=== PATIENT | male | born 1975 | race Caucasian/White ===

== ENCOUNTER 2017-03-22 09:03 | Observation (INO) | payer OTHER ==
[~2017-03-22] VITALS: Ht 172.7 cm; Wt 142.2 kg
[2017-03-22] VITALS (12 sets, daily range): BP systolic 95–163; BP diastolic 61–120; PULSE 62–69; RESP 16–20; O2SAT 93–98
[~2017-03-22 09:03] MED LIST: ALBU8.5H2 IH; AZU500 PO; BUPR200T2 PO; CELE200C PO; DICL100G8 TP; DICY10CA56 PO; EPIN0.3P2 IJ; ERGO500029 PO; HYDR-3740 PO; LIDOCAINE 2% TOP; LOPE2TAB32 PO; MAGN250T37 PO; MECL-125 PO; OMEP40CA3 PO; ONDA-53 PO; PREG225C PO; PROC5TAB50 PO; PROP40TA5 PO; QUET200T58 PO; RIZA10TA28 PO; TIZA4TAB PO; TRAZ-118 PO; VENL150C PO
--- NOTE | 2017-03-22 09:24 | ED.REPORT ---
HPI-General Illness Date of Service Mar 22, 2017 ED Provider: Nick Esteban MD A 41 year old male with a history of smoking, fibromyalgia, pulmonary artery disease, anxiety, CHF, hypertension, high cholesterol, OK 1.5 years ago and a family history of early onset cardiac disease is brought to the ED via EMS due to chest pain onset approximately 07:45. The pt began experiencing palpitations , which were soon followed by midsternal chest pain that the pt describes as "heavy tightness." The pain radiates to his jaw and left shoulder, though he denies radiation of pain to his back. He also admits to nausea, headache and general weakness, but denies numbness, tingling or focal weakness. The pt received nitro en route, which brought his pain down to a 6.5/10. The pt states that his current symptoms are similar to those that he experienced during his last OK. He was not stented at that time. Denies any other pertinent complaints at this time. Nursing Notes Stated Complaint: CHEST PAIN Chief Complaint: Chest Pain Nursing Notes Reviewed: Yes Allergies: Coded Allergies: amitriptyline (Verified Allergy, Unknown, 12/21/14) codeine (Verified Allergy, Unknown, 12/21/14) cyclobenzaprine HCl (Verified Allergy, Unknown, 12/21/14) telmisartan (Verified Allergy, Unknown, 12/21/14) NSAIDS (Non-Steroidal Anti-Inflamma (Verified Adverse Reaction, Intermediate, GERD, 03/22/17) Scheduled Bupropion ER (Wellbutrin SR) 200 Mg Tablet.er 200 MG PO BID Celecoxib (Celebrex) 200 Mg Capsule 200 MG PO BID Ergocalciferol (Vitamin D2) (Vitamin D2) 50,000 Unit Capsule 50,000 UNIT PO every sunday Magnesium Oxide (Magnesium Oxide) 250 Mg Tablet 250 MG PO BID Omeprazole (Prilosec) 40 Mg Capsule.dr 40 MG PO DAILY Pregabalin (Lyrica) 225 Mg Capsule 225 MG PO BID Propranolol HCl (Propranolol HCl) 40 Mg Tablet 40 MG PO BID Quetiapine Fumarate (Quetiapine Fumarate) 200 Mg Tablet 400 MG PO HS Sulfasalazine (Sulfasalazine) 500 Mg Tablet 1,000 MG PO TIDPC Trazodone (Trazodone) 100 Mg Tablet 400 MG PO HS MAY REPEAT IN 24 HOURS Trazodone (Trazodone) 100 Mg Tablet 400 MG PO HS Venlafaxine ER (Effexor XR) 150 Mg Cap.er.24h 150 MG PO DAILY Scheduled PRN ([lidocaine 2% jelly]) 1 APPLIC TOP QID PRN PRN For Pain Albuterol HFA (Proair HFA) 8.5 Gm Hfa.aer.ad 2 PUFFS IH Q4-6H PRN PRN For Shortness of Breath Diclofenac Gel (Voltaren Gel) 100 Gm Gel..gram. 100 GM TP QID PRN PRN SKIN Dicyclomine (Bentyl) 10 Mg Capsule 10 MG PO TID PRN PRN For Pain Epinephrine (Epipen 2-Jonah) 0.3 Mg/0.3 Ml Auto.injct 0.3 MG IJ PRN PRN PRN For Anaphyllaxis Hydrocodone-Acetaminophen 10-325 mg (Hydrocodone-Acetaminophen 10-325 mg) 1 Tab Tablet 1 TAB PO Q4-6H PRN PRN For Pain Loperamide (Loperamide) 2 Mg Tablet 2 MG PO DAILY PRN PRN For Diarrhea or Loose Stool Meclizine HCl (Meclizine HCl) 25 Mg Tab.chew 25-50 MG PO BID PRN PRN DIZZINESS Ondansetron (Ondansetron) 4 Mg Tablet 4-8 MG PO Q8 PRN PRN For Nausea Prochlorperazine Maleate (Compazine) 5 Mg Tablet 5 MG PO Q6 PRN PRN For Nausea Rizatriptan ODT (Rizatriptan) 10 Mg Tab.rapdis 10 MG PO DAILY PRN PRN For Headache Tizanidine (Zanaflex) 4 Mg Tablet 4-16 MG PO HS PRN PRN For Sleep General Time Seen by MD: 10:08 Chief Complaint Chest pain Hx Obtained From: Patient, EMS Arrived By: Ambulance Sudden in Onset?: Yes Onset Occurred: 1 - 4 hours ago Location: : Chest Quality: Heaviness Severity: Current: Pain level 6 out of 10 Recent Healthcare: No recent doctor visit, No recent hospitalization Similar Sx Previous: Yes Past Medical History Past Medical History Depression/Anxiety. PTSD. [place] Pulmonary artery disease Hypertension High cholesterol Possible dissociative disorder. Suspected bipolar disorder. Malignant and borderline personality disorder. Suspected possible Crohn's disease. Migraine headaches. Self-reported history of fibromyalgia Chronic pain, and on pain plan with PCP Dr. Armstrong, takes Vicodin ES Reports: Asthma, Congestive heart failure, Mental illness Past Surgical History exploratory surgery s/p pancreatitis Status post steroid injection for back pain Status post negative cardiac catheterization December 11, 2013. Reports: Appendectomy Family History OK (father and aunt) before 50 Reports: Diabetes mellitus Smoking History Current Every Day Smoker Social History Alcohol Use: "Social" Other Social History: Local resident Ambulatory Status Independent Review of Systems jaw pain, radiating from chest denies numbness denies paresthesia denies focal weakness Full Review of Systems Constitutional: Reports: Weakness - generalized, Denies: Chills, Fever Eyes: Denies: Diplopia, Photophobia Ears / Nose / Throat: Denies: Mouth pain, Nasal congestion Respiratory: Denies: Non-productive cough Cardiovascular: Reports: Chest pain, Palpitations GI: Reports: Nausea, Denies: Abdominal pain Male: Denies Dysuria Musculoskeletal: Reports: Joint pain (left shoulder, radiating from chest), Denies: Back pain Hematologic: Denies Bruising Skin: Denies Rash Neurologic: Reports: Headache Psychiatric: Denies: Change mental status Complete sys rev & neg: except as marked. Physical Exam Constitutional: Well-developed, well-nourished. Not diaphoretic, though appears uncomfortable. Head: Normocephalic and atraumatic. Mouth/Throat: Oropharynx is clear and moist. No oropharyngeal exudate. Eyes: EOM are normal. Pupils are equal, round, and reactive to light. Neck: Supple, no tracheal deviation. Cardiovascular: Normal rate, regular rhythm. Equal and intact distal pulses throughout. No peripheral edema noted. Pulmonary/Chest: Effort normal and breath sounds normal. No respiratory distress. Chest wall nontender. Abdominal: Soft. No distension. There is no tenderness, rebound, or guarding. Bowel sounds present. Musculoskeletal: Range of motion grossly intact, moving all extremities. No edema or tenderness appreciated. Neurological: AOx3. Grossly nonfocal exam. Strength and sensation intact and equal to bilateral upper and lower extremities. Skin: Warm and dry, no rashes or pallor appreciated. Not diaphoretic. Psychiatric: Appropriate mood and affect. Behavior appears normal. Vital Signs Vital Signs Date Time Temp Pulse Resp B/P Pulse Ox O2 Delivery O2 Flow Rate FiO2 03/22/17 13:26 63 20 120/83 94 Room Air 03/22/17 12:14 62 20 117/68 94 Room Air 03/22/17 11:16 68 20 96/62 93 03/22/17 11:11 64 20 95/61 93 Room Air 03/22/17 10:36 62 20 119/69 94 Room Air 03/22/17 10:14 63 20 116/63 96 Room Air 03/22/17 09:59 36.4 64 20 144/120 97 Room Air Initial VS: Reviewed Interpretation & Diagnostics Interpretation & Diagnostics: Chest/Abdomen CT: IMPRESSION: 1. No evidence of aortic dissection. 2. No central pulmonary embolism. Dictated by: Jose Ambriz M.D. on 03/22/2017 at 13:00 Approved by: Jose Ambriz M.D. on 03/22/2017 at 13:06 Lab Results Interpretation Result Diagram: 03/22/17 1000 03/22/17 1000 Test 03/22/17 10:00 03/22/17 13:02 White Blood Count 5.9th/mm3 (3.8-10.1) Red Blood Count 3.82mil/mm3 (4.40-5.80) Hemoglobin 12.3g/dL (13.8-17.2) Hematocrit 36.9% (41.0-50.0) Mean Corpuscular Volume 96.6fL (81-100) Mean Corpuscular Hemoglobin 32.2pg (27.0-35.0) Mean Corpuscular Hemoglobin Concent 33.3% (32.0-37.0) Red Cell Distribution Width 13.6% (12.3-15.4) Platelet Count 177bil/L (150-400) Neutrophils (%) (Auto) 64.1% (40-74) Lymphocytes (%) (Auto) 28.6% (14-46) Monocytes (%) (Auto) 6.6% (4-12) Eosinophils (%) (Auto) 0% (0-5) Basophils (%) (Auto) 0.5% (0-3) Prothrombin Time 10.2sec (8.1-12.5) Prothromb Time International Ratio 0.95ratio Activated Partial Thromboplast Time 30.3sec (22.8-33.0) Sodium Level 141mEq/L (134-144) Potassium Level 4.0mEq/L (3.5-5.2) Chloride Level 105mEq/L (97-108) Carbon Dioxide Level 24mmol/L (18-29) Blood Urea Nitrogen 9mg/dL (6-24) Creatinine 0.86mg/dL (0.76-1.27) Estimat Glomerular Filtration Rate 103mL/min (>59) Glucose Level 117mg/dL (60-99) Calcium Level 9.2mg/dL (8.5-10.1) Magnesium Level 1.9mg/dL (1.6-2.6) Total Bilirubin 0.3mg/dL (0.0-1.2) Aspartate Amino Transf (AST/SGOT) 8U/L (0-50) Alanine Aminotransferase (ALT/SGPT) 6U/L (0-44) Alkaline Phosphatase 63U/L (25-150) Total Protein 6.2g/dL (6.4-8.4) Albumin 3.8g/dL (3.4-5.0) ECG Interpretation ECG Interpretation: normal sinus rhythm with a rate of 66 deep T wave inversion in anterolateral leads vs. LVH Time: 10:02 Interpreted by: ED physician X-Ray Chest Interpretation Chest Xray Interpretation: IMPRESSION: Negative chest. No acute cardiopulmonary process is evident. Dictated by: Chris Boland M.D. on 03/22/2017 at 9:58 Approved by: Chris Boland M.D. on 03/22/2017 at 9:59 Interpretation / Wet Read by: Interpret - Radiologist Re-Eval/Medical Decision Med Decision/Clinical Course In summary, 41 yo M w/ complex PMHx including reported CAD and CHF, previous NSTEMI p/w midsternal chest pain radiating to his L shoulder and jaw in the setting of new EKG changes. DDx broad, includes ACS, PE, dissection, tamponade, PTX. BS present bilaterally, HDS. Sats wnl. Not dyspneic, low risk by [place] for PE. Dissection seems unlikely, though with patient's history and onset, decision made to obtain CT before initiating heparin. Patient given ASA upon arrival, IVF (lungs clear, not fluid overloaded), and started on NTG gtt w/ improvement in pain to a 2 to 3. EKG demonstrates NSR w/ rate of 66, deep TWI in anterolateral leads vs LVH; this is significantly changed from his previous. Initial labs notable for negative trop, coags wnl, CMP wnl, Hgb 12.3 (stable from previous) otherwise unremarkable CBC. CXR negative w/ no signs of fluid overload, PTX. Recieved OSH records. Here is transcribed report from cath in 09/2015: 10/25/2015 CONCLUSION: 1. Angiographically trivial preclinical coronary artery disease (deserving primary prevention). 2. Hyperdynamic left ventricular systolic function with no regional wall motion abnormalities identified. 3. [id number] left ventricular outflow tract obstruction by hemodynamics. 4. No evidence of mitral regurgitation on ventriculography. 5. Profoundly elevated left ventricular diastolic filling pressure. Echo at that time demonstrated hyperdynamic left ventricle with EF of 70%, no wall motion abnormalities. CTA here demonstrates no evidence of dissection. Discussed with patient and plans to start on heparin gtt. Consulted with cardiology prior to patient's arrival in the ED as per below. Obvious concern for ACS given patient's history and clinical presentation, including new EKG changes. Plan for admission for further management and evaluation, possible cardiac cath. This was discussed at length with the patient, who was agreeable and had no further questions. Source of Hx: Old records Time of Eval: 13:25 Patient Status: Condition improved Re-Evaluation/Progress Note: Pt rechecked, who is stable and resting comfortably. The diagnosis and plan for admission are discussed. The pt understands and agrees with the plan. All questions are addressed at this time. Consultation #1: Referral / Consult Name: Jimenez Eisenberg MD Consulted With: Cardiology Call Returned at: 09:20 Information Broker: Will see patient, Agrees with plan Note: Spoke with Dr. Eisenberg, cardiology, regarding pt's case. Dr. Eisenberg does not believe that the pt represents a clear STEMI at this time. He will see the pt when he arrives in the ED. Consultation #2: Referral / Consult Name: Jimenez Eisenberg MD Consulted With: Cardiology Call Returned at: 10:04 Information Broker: Agrees with eval, Agrees with plan Note: Spoke with Dr. Eisenberg in the ED regarding plan for the pt. Counseled Regarding: Diagnosis, Lab results, Need for admission Discharge & Departure Primary Impression: Unstable angina Disposition: ADMITTED TO HOSPITAL Discharge Condition All VS Reviewed: Yes Condition: Stable Referrals: JAQUELINE HUBER PA-C (PCP) Crit Care Except Billable Proc Time Spent: 75-104 minutes Critical Care Notes: Please see MDM. Scribe Attestation Portions of this note were transcribed by Noni Balderas. I, Dr. Esteban personally performed the history, physical exam and medical decision-making; I reviewed and confirmed the accuracy of the information in the transcribed note. copies to: JAQUELINE HUBER PA-C, William B MD Mar 22, 2017 09:24 NONI BALDERAS Mar 22, 2017 09:51
[2017-03-22] MEDS ORDERED: 0.9% Sodium Chloride 1,000 ML IV ONE (10:08)
[2017-03-22] MEDS ORDERED: Nitroglycerin 50 mg/250 mL D5W 50,000 MCG in IV Premix 1 EACH IV ONE (10:08)
[2017-03-22 10:16] LABS: BASOPHILS % (AUTO) 0.5 % (0-3); EOSINOPHILS % (AUTO) 0 % (0-5); MONOCYTES % (AUTO) 6.6 % (4-12); Mean Corpuscular Hemoglobin 32.2 pg (27.0-35.0); Mean Corpuscular Volume 96.6 fL (81-100); NEUTROPHILS % (AUTO) 64.1 % (40-74); Platelet Count 177 bil/L (150-400)
[2017-03-22 10:30] LABS: INR 0.95 ratio
[2017-03-22 10:49] LABS: Magnesium 1.9 mg/dL (1.6-2.6)
[2017-03-22 11:00] LABS: TROPONIN T < 0.010 ug/L (0.0-0.011)
--- NOTE | 2017-03-22 11:00 | DRSVH ---
PROCEDURE: X-RAY CHEST ONE VIEW, PORTABLE ([id number]) INDICATIONS: chest pain TECHNIQUE: One view of the chest was acquired. COMPARISON: [facility], , CHEST 1VW (PORTABLE), 12/21/2014, 16:10. FINDINGS: Surgical changes and devices: None. Lungs and pleura: No pleural effusions or pneumothorax. Lungs are clear. Mediastinum: Mediastinal contours appear normal. Heart size is normal. Bones and chest wall: No suspicious bony lesions. Overlying soft tissues appear unremarkable. IMPRESSION: Negative chest. No acute cardiopulmonary process is evident. Dictated by: Chris Boland M.D. on 03/22/2017 at 9:58 Approved by: Chris Boland M.D. on 03/22/2017 at 9:59
[2017-03-22] MEDS ORDERED: Ondansetron 2 mg/mL 2 mL Inj IVPUSH ONE (11:55)
--- NOTE | 2017-03-22 13:08 | DRSVH ---
PROCEDURE: CT ANG CHEST/ABD W/WO CONTRAST ([id number]) INDICATIONS: chest pain; eval PE, signs of dissection TECHNIQUE: Precontrast 5 mm thick sections acquired from the lung apices to the iliac crests. After the adminis tration of intravenous contrast, 3 mm thick sections again acquired from the lung apices to the iliac crests. 3-dimensional maximum intensity projection (MIP) oblique sagittal and coronal reformats wer e then acquired, and/or 3-dimensional volume rendering reformats. For radiation dose reduction, the following was used: automated exposure control. COMPARISON: [facility], CT, ABD/PELVIS W/CON (PNL), 10/01/2011, 14:12. [facility], CR, XR CHEST 1VW (PORTABLE), 03/22/2017, 10:17. FINDINGS: Image quality: There is slight motion artifact. AORTA: The aorta is normal in size and contour. Noncontrast images demonstrate no evidence of intra mural hematoma. Postcontrast images demonstrate no intimal flaps to suggest aortic dissection. No e vidence of acute aortic injury. The great vessels demonstrate conventional branching from the aortic arch and appear patent where visualized. CHEST: Lungs and pleura: There is mild dependent atelectasis bilaterally. No pleural effusions or pneumotho rax. Central and peripheral airways are patent and normal in caliber. Mediastinum: Heart size is enlarged. No pericardial effusion. No mediastinal or hilar adenopathy b y size criteria. Central pulmonary arteries are normal in size. No filling defects to suggest centr al pulmonary embolism with evaluation limited beyond the level of the segmental pulmonary arteries. Esophagus is normal in caliber. No hiatal hernias. Bones and chest wall: No axillary adenopathy by size criteria. Thyroid gland demonstrates no discre te nodules. No suspicious bony lesions. No vertebral body compression fractures. ABDOMEN: Vasculature: Celiac trunk and mesenteric arteries are patent. There are single renal arteries bilat erally which also appear patent. Solid organs: Liver and spleen are normal in size. Gallbladder appears within normal limits without calcified gallstones. Biliary system is non dilated. Pancreas enhances normally. No adrenal nodul es. Kidneys demonstrate no hydronephrosis. There is a small peripheral cyst in the right kidney. Peritoneum and bowel: No free fluid or air. Visualized bowel loops are normal in caliber and wall t hickness. Nodes and vessels: No retroperitoneal or mesenteric adenopathy by size criteria. Inferior vena cava is normal in morphology. Bones: No suspicious bony lesions. No vertebral body compression fractures. Miscellaneous: No ventral hernias. IMPRESSION: 1. No evidence of aortic dissection. 2. No central pulmonary embolism. Dictated by: Jose Ambriz M.D. on 03/22/2017 at 13:00 Approved by: Jose Ambriz M.D. on 03/22/2017 at 13:06
[2017-03-22] MEDS ORDERED: Heparin 25K Unit/500mL 0.45 NS 25,000 UNIT in IV Premix 1 EACH IV ONE (13:30)
[2017-03-22] MEDS ORDERED: Heparin 5,000 Unit/mL Inj IVPUSH ONE (13:30)
[2017-03-22] MEDS ORDERED: Polyethylene Glycol (PEG) 17 Gm Powder PO PRN (13:35)
[2017-03-22] MEDS ORDERED: Heparin 5,000 Unit/mL Inj IVPUSH PRN (13:35)
[2017-03-22] MEDS ORDERED: Atropine 1 mg/10 mL (Code) Syringe IVPUSH PRN (13:35)
[2017-03-22] MEDS ORDERED: Alum-Mag Hydrox-Simeth 30 mL Suspension PO PRN (13:35)
[2017-03-22] MEDS ORDERED: Heparin 25K Unit/500mL 0.45 NS 25,000 UNIT in IV Premix 1 EACH IV SCH (13:35)
[2017-03-22] MEDS ORDERED: Senna-Docusate 8.6-50 mg Tablet PO PRN (13:35)
--- NOTE | 2017-03-22 14:30 | NUR ---
Arrival to room 2013 Patient escorted via cart to room 2013. Substernal chest tightness with radiating pain to left shoulder reported at time of arrival, rating pain 3/10. Additional complaints of headache. Nitroglycerin gtt infusing at 15mcg/min & heparin gtt continued at 1000 units/hr. SR with inverted t-waves in lead II. Pressure stable. Denies nausea. No reported SOA. Sp02>92% on room air. Patient oriented to room and call light. Plan of care reviewed at bedside. Will continue to monitor.
[2017-03-22 14:35] LABS: Creatine Kinase 55 U/L (21-232)
[2017-03-22] MEDS: 0.9% Sodium Chloride 1,000 ML IV SCH (14:54)
--- NOTE | 2017-03-22 15:43 | DRSVH ---
[facility] [address] [place] [address] Echocardiogram Report Name: MEDINA BENAVIDEZ Date: 017 Height: 68 in Hospital Exam Location: [facility] Weight: 30 2 lb Gender: Male BSA: 2.4 m2 : 1975 Age: 41 yrs BP: 139/65 mmHg Reason For Study: CHEST PAIN, EVAL WALL MOTION ABN, EF Ordering Physician: Jimenez Eisenberg Performed By: Russell Hall Referring Physician: KRYSTAL SAL Interpretation Summary There is moderate concentric hypertrophy with severe apical hypertrophy with cavity obliteration. The ejection fraction is estimated to be 70-75%. Procedure: A two-dimensional transthoracic echocardiogram with color flow and Doppler was performed. The study quality was technically difficult. There is no prior echocardiogram noted for this patient. The patient was in normal sinus rhythm during the exam. Left Ventricle: The left ventricle is normal in size. There is moderate concentric hypertrophy with severe apical hypertrophy with cavity obliteration. The ejection fraction is estimated to be 70-75%. Right Ventricle: The right ventricle is grossly normal size. Atria: Borderline left atrial enlargement. The right atrium grossly appears normal in size. The interatrial septum is intact with no evidence for an atrial septal defect. Mitral Valve: The mitral valve is grossly normal. There is trace mitral regurgitation. Aortic Valve: The aortic valve is grossly normal. No aortic regurgitation is present. Tricuspid Valve: The tricuspid valve is normal. There is trace tricuspid regurgitation. The right ventricular systolic pressure is estimated at 27 mmHg assuming a right atrial pressure of 3 mm Hg. Pulmonic Valve: The pulmonic valve is not well visualized. Great Vessels: The aortic root is normal size. The dimensions of the ascending aorta are normal. The pulmonary artery is normal size. The IVC is of normal diameter and collapses greater than 50% with a sniff. This suggests a low right atrial pressure of 3 mm Hg. Pericardium/ Pleura There is no pericardial effusion. There is no pleural effusion. MMode/2D Measurements & Calculations LVIDd: 4.8 cm LA A2 area LVOT diam: 2.2 cm LV finley. diameter/BSA LVIDs: 2.2 cm Ao root diam (cm/m^2): 2.0 FS: 54.0 % IVSd: 1.4 cm LA A4 area asc Aorta Diam LVPWd: 1.3 cm LA length Ao Arch Diam (vol): 5.6 cm (Prox Trans): LA vol: 73.7 ml .3 cm LA vol index : 30.2 ml/m2 LV sys. diameter/BSA (cm/m^2): 0.92 Doppler Measurements & Calculations Ao V2 max: 135.6 cm/secMV E max carlitos MV E/A: 1.5 TR max carlitos Ao max P.4 mmHg : 88.3 cm/sec Med Peak E' Carlitos : 242.7 cm/sec Ao mean P.2 mmHg MV A max carlitos TR max PG LVOT Max Carlitos : 58.9 cm/sec E/E' med: 17.3 : 23.6 mmHg : 100.8 cm/sec Lat Peak E' Carlitos PA V2 max : 85.2 cm/sec BARRY(I,D): 3.0 cm E/E' lat: 14.2 PA mean PG sev ratio: 0.80 E/e' average : 1.7 mmHg MV dec time: 0.22 sec Ao V2 mean LV V1 max PG PA V2 mean : 97.2 cm/sec : 63.1 cm/sec Ao V2 VTI LV V1 VTI: 22.8 cmPA pr(Accel) : 41.7 mmHg BARRY(V,D): 2.8 cm2 BARRY indexed to BSA (cm^2/m^2): 1.2 Electronically signed by: Shun Davila on Reading Physician:03/22/2017 03:43 PM
--- NOTE | 2017-03-22 16:12 | PCM.HPMED ---
Subjective Date of Service Mar 22, 2017 Primary Provider: Admitting Physician: Reed Martinez MD [facility] Attending Physician: Reed Martinez MD Admit Status: From the Emergency Department, Admit to Yellow Team Chief Complaint: 41-year-old man with history of coronary artery disease as well as noncardiac chest pain presents with recurrence of acute chest pain History of Present Illness: The patient has a history of myocardial infarction 18 months ago admitted to [facility] in [place]. He is followed by Dr. Sami Chen. Since his GA and stenting he has had approximately 6 subsequent hospital evaluations for acute chest pain. He reports being told that each of these was not heart related. He has not had repeat cardiac catheterization since his myocardial infarction. He was in his usual state of health until 7:30 AM on the day of admission. He experienced episode of palpitation which began at rest and lasts approximately 30 minutes. Toward the end this began to experience chest pressure which felt like a "[place] and "in his midsternal and left precordial area. This radiated slightly to his left shoulder. He experienced mild diaphoresis, mild shortness of breath and mild nausea. He notes the pain was slightly worse with movement and certain positions but otherwise no exacerbating or palliating factors. It is improved slightly since admission with nitroglycerin and morphine. The pain is similar in character to his other recent hospital evaluations. He states that it usually does not go along this long. He does not have exertional chest pain, although he usually ambulates with a wheelchair due to his cataplexy disorder. He has no PND, orthopnea or increased ankle swelling. He uses a CPAP device for OR[place]O regularly. Review of Systems: 11 system ROS performed. Significant findings as per history of present illness. Additional findings include chronic intermittent nausea for which she takes Phenergan. Fibromyalgia and diffuse musculoskeletal aches. Cataplexy. Asthma for which he uses bronchodilators rarely. Chronic intermittent diarrhea due to Crohn's disease. Allergies Coded Allergies: tramadol (Verified Allergy, Intermediate, 03/22/17) amitriptyline (Verified Allergy, Unknown, 03/22/17) codeine (Verified Allergy, Unknown, 03/22/17) cyclobenzaprine HCl (Verified Allergy, Unknown, 03/22/17) telmisartan (Verified Allergy, Unknown, 03/22/17) NSAIDS (Non-Steroidal Anti-Inflamma (Verified Adverse Reaction, Intermediate, GERD, 03/22/17) Home Medications Patient is unsure of his medications and med reconciliation from pharmacy is pending at this time [facility] # Myocardial infarction 2014 # Episodic chest pain with normal EKG and troponins # Right sided congestive heart failure # OR[place]O on CPAP # DJD and ankylosing spondylitis # Cataplexy # Restless leg syndrome # Asthma # Hypertension # Crohn's disease # Bipolar, anxiety Family History Father with premature coronary disease. Mother with hypertension. One half- sister in good health. No other siblings. 3 children one with type II diabetes mellitus. 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 Exam Vital Signs Vital Sign - Last Date Time Temp Pulse Resp B/P Pulse Ox O2 Delivery O2 Flow Rate FiO2 03/22/17 14:32 36.5 69 18 139/66 98 Room Air Exam Constitutional: Obese middle-aged man appears comfortable; no acute distress; vital signs noted Eyes: sclerae anicteric, no conjunctival pallor, ENMT: ears, nose atraumatic; oral mucosa moist Neck: supple, JVD difficult to assess due to obesity Chest: symmetric, no pain or lesions Resp: auscultation clear, no wheezes, rales or dullness Cardiac: S1, S2, regular, no murmur Abdomen: bowel sounds present, nontender, no organomegaly Musculoskeletal: no joints with acute erythema, swelling Skin and soft tissues: no rash; no pitting edema Peripheral pulses: normal at wrist, feet Lymphatic: no adenopathy cervical Neurological: Cranial Nerves - face symmetric Reflexes - BJ, KJ symmetric Motor - 5/5 strength, normal tone Coordination - normal movement, mild tremor mostly in left upper extremities Sensory - vibration and light touch intact Psych & Mental Status - oriented and appropriate Lab and Diagnostics Result Diagram: 03/22/17 1000 03/22/17 1000 X-Rays, CTs and MRIs PROCEDURE: CT ANG CHEST/ABD W/WO CONTRAST ([id number]) IMPRESSION: 1. No evidence of aortic dissection. 2. No central pulmonary embolism. Dictated by: Jose Ambriz M.D. on 03/22/2017 at 13:00 PROCEDURE: X-RAY CHEST ONE VIEW, PORTABLE ([id number]) IMPRESSION: Negative chest. No acute cardiopulmonary process is evident. Dictated by: Chris Boland M.D. on 03/22/2017 at 9:58 . 12-lead ECG 03/22/17 at 10:03 sinus rhythm 66, QTC 474 otherwise conduction intervals normal. Isolated Q wave III, inverted T waves V2-V6, I, aVL. [address] depression V3-V6, [address] depression I, [address] depression in aVL, all with downsloping T waves. Previous EKG 12/21/14 (prior to history of GA) sinus rhythm. Isolated Q in room 3. Normal anterolateral morphology. Cardiac Echo Impressions Echocardiogram Report Name: MEDINA BENAVDIEZ Study Date: 03/22/2017 Interpretation Summary There is moderate concentric hypertrophy with severe apical hypertrophy with cavity obliteration. The ejection fraction is estimated to be 70-75%. . Assessment & Plan # 41-year-old man with known coronary artery disease and history of workup negative chest pain episodes presents with recurrence of a similar episode. # Acute chest pain, present on admission. - Serial troponin - Nitrates and morphine when necessary; planned taper off if troponins are negative - Heparin drip; planned taper off if troponins are negative - Cardiology consult; no plans for acute intervention - Cardiac diet - Records from [facility] # Probable hypertrophic cardiomyopathy, present on admission. New diagnosis. - [place]ye beta valentino and calcium channel laquita blockade. Target HR approximately 50-60. - Continue telemetry monitoring - Plan outpatient cardiology follow-up as directed by labor relations consultant # Obesity with ORLANDO, chronic. - Continue patient's home CPAP # Hypertension, chronic. - Follow on increased beta valentino and calcium channel valentino. Adjust other medications as needed # Chronic pain. Due to fibromyalgia and DJD. - Try to manage without escalation of opioid analgesics # Asthma, chronic. No evidence of acute bronchospasm at this time. - When necessary bronchodilators Pain Evaluation: Pain not Controlled GI Prophylaxis: Not indicated VTE Prophylaxis: Other VTE Mechanical Devices: Intermittant Pneumatic CD Resuscitation Status: CPR: Attempt Resuscitation Time spent 70 minutes inpatient assessment and care coordination including review of data with consultants Reed Martinez MD Mar 22, 2017 16:12
[2017-03-22] MEDS: Sodium Chloride LOK Flush 10 mL Syringe IVFLUSH SCH (16:30)
--- NOTE | 2017-03-22 17:33 | NUR ---
Status Chest pain resolved. Nitro gtt off. Mild headache, denies need for pain medication at this time. Vital signs stable. Will continue to monitor.
[2017-03-22] MEDS ORDERED: FEG324 PO (19:56)
[2017-03-22] MEDS ORDERED: LOPE2CAP PO (19:56)
[2017-03-22] MEDS ORDERED: TIZA4TAB4 PO (19:56)
[2017-03-22] MEDS ORDERED: PROM25TA14 PO (19:56)
[2017-03-22] MEDS ORDERED: LOSA25TA21 PO (19:56)
[2017-03-22] MEDS ORDERED: DULO60CA61 PO (19:56)
[2017-03-22] MEDS ORDERED: PREG300C PO (19:56)
[2017-03-22] MEDS ORDERED: ATOR40TA69 PO (19:56)
[2017-03-22] MEDS ORDERED: PRAZ2CAP2 PO (19:56)
[2017-03-22] MEDS ORDERED: HALO1TAB PO (19:56)
[2017-03-22] MEDS ORDERED: SYMINH PO (19:56)
[2017-03-22] MEDS ORDERED: OXYC-466 PO (19:56)
[2017-03-22] MEDS ORDERED: OMEP40CA36 PO (19:56)
[2017-03-22] MEDS ORDERED: DIVA250T4 PO (19:56)
[2017-03-22] MEDS ORDERED: DOXA4TAB2 PO (19:56)
[2017-03-22] MEDS ORDERED: TORS20TA3 PO (19:56)
[2017-03-22] MEDS ORDERED: ALBU18HF INHALATION (19:56)
[2017-03-22] MEDS ORDERED: LIDO5O TOPICAL (19:56)
[2017-03-22] MEDS ORDERED: ALPR1TAB7 PO (19:56)
[2017-03-22] MEDS ORDERED: CARV6.252 PO (19:56)
[2017-03-22] MEDS ORDERED: MECL-114 PO (19:57)
[2017-03-22 20:14] LABS: Creatine Kinase 61 U/L (21-232)
[2017-03-22 20:15] LABS: TROPONIN T < 0.010 ug/L (0.0-0.011)
--- NOTE | 2017-03-22 20:50 | NUR ---
Transfer to PCC Pt transferred to PCC room 2023 d/t downgrade from CCU status as he is off nitro gtt. Was able to transfer in wheelchair. All belonging brought to his new room. Care ongoing
[2017-03-22] MEDS: oxyCODONE-Acetamin 10-325 mg Tablet PO PRN (21:10)
[2017-03-23] VITALS (7 sets, daily range): BP systolic 118–162; BP diastolic 69–82; PULSE 51–69; RESP 14–20; O2SAT 94–96
[2017-03-23] MEDS ORDERED: Acetaminophen IV 1,000 MG in IV Premix 1 EACH IV ONE (00:15)
[2017-03-23] MEDS: Sodium Chloride LOK Flush 10 mL Syringe IVFLUSH SCH ×4 (00:50→23:46)
[2017-03-23] MEDS: Ondansetron 2 mg/mL 2 mL Inj IVPUSH PRN ×2 (00:57→09:08)
[2017-03-23] MEDS: 0.9% Sodium Chloride 1,000 ML IV SCH ×3 (02:05→21:53)
--- NOTE | 2017-03-23 03:30 | NUR ---
BAEZ Pt c/o increasing BAEZ. Attempted to give IV meds ordered which didnt help. approved pts home dose of percocet 10/325, which pt took. This did not help his migraine either. Second MD paged (pt transferred out of unit) and order for IV Tylenol given as well as zofran for mild nausea. This did not help pts migraine either. New orders from for Imitrex which was just given. Pt in dark room and will remain undisturbed unless he uses call light until AM. Care has been clustered. Will continue to monitor. Care ongoing
[2017-03-23 03:41] LABS: BASOPHILS % (AUTO) 0.4 % (0-3); EOSINOPHILS % (AUTO) 0 % (0-5); MONOCYTES % (AUTO) 8.6 % (4-12); Mean Corpuscular Hemoglobin 32.3 pg (27.0-35.0); Mean Corpuscular Volume 97.5 fL (81-100); NEUTROPHILS % (AUTO) 57.7 % (40-74); Platelet Count 171 bil/L (150-400)
[2017-03-23] MEDS: oxyCODONE-Acetamin 10-325 mg Tablet PO PRN ×2 (09:14→19:30)
--- NOTE | 2017-03-23 10:11 | NUR ---
Case Management: Clarification of patien status: observation per MD order on 03/23/17. Richard Reveles RN
--- NOTE | 2017-03-23 12:33 | NUR ---
Social Work: Initial Assessment/Multidisciplinary Rounds D: Per EMR review, pt is a 41 year old male admitted for unstable angina. Pt is [employer] HO with no LTC or VA benefits. PCP is through the [facility] in [place]. JERONIMOK is pt's mother, Karuna Brush. Advanced directives information declined by pt. Readmit score is high, 4/8. Pt discussed in multidisciplinary rounds. Capacity for self care discussed; no concerns or needs at this time. Anticipate pt to discharge home possibly today or tomorrow with no sw needs. PHOTOGRAPHY MANAGER met with the patient at bedside. Sw role explained, contact info and dcp checklist provided. Pt lives at home in a single story apartment with 2 roommates. Pt uses a cane for ambulation and also owns an electric wheelchair which he uses on occasion for community mobility. Pt has never had HH or skilled rehab and is I with all of his own self-care. Pt does not drive and relies on [facility] transport to doctors appointments; pt also uses public transportation. Pt expresses no concerns about discharge home and states that if he is to discharge today he will use public transportation to get home. If he is to discharge over the weekend he will need a [employer] taxi home as the [place] buses do not run on the weekend. The patient arrived to [facility] via EMS and pt does have a transportation benefit with [facility]. A: Pt who is I at baseline. P: Anticipate pt to dsicharge home via either public transportation or [facility] taxi if discharged over the weekend; PHOTOGRAPHY MANAGER to continue to follow to assess for d/c needs. JACEK Shin Addendum: 03/23/17 at 1239 by GISEL MALDONADO Amended: Links added.
--- NOTE | 2017-03-23 13:20 | CONS ---
[address] [address] CONSULTATION REPORT PATIENT: MEDINA BENAVIDEZ : 1975 MR#: [id number] ADMIT: 03/22/2017 JOB ID: [id number] DATE OF SERVICE: 03/22/2017 REQUESTING PHYSICIAN: Reed Martinez MD CHIEF COMPLAINT: Chest discomfort. HISTORY OF PRESENT ILLNESS: This gentleman has a very complex medical history. His cardiology care is usually delivered through [facility] and his progressive care nurse is Dr. Sami Juarez. I was able to get his records from [facility], which were reviewed. Last September he was admitted to the hospital with atypical chest discomfort and elevated troponin. He underwent coronary angiography. He was found to have mild nonobstructive disease. His chest pain was ascribed to hypertrophic cardiomyopathy with moderate LVOT obstruction. He had a hyperdynamic LV. Since then he has had multiple ED visits requiring evaluation for chest discomfort. Yesterday he came in with chest discomfort which began at rest and lasted for about half an hour. He describes it as a retrosternal chest discomfort that sometimes goes into his shoulders. This is accompanied by shortness of breath and nausea. At the time of my interview yesterday he has no chest discomfort. He states that his chest discomfort gets worse with certain posture and movement. It responded to both nitroglycerin and morphine. He suffers from cataplexy and as a result is wheelchair bound and is on disability. He denies any exertional type symptoms. He denies any orthopnea or PND. REVIEW OF SYSTEMS: Comprehensive review of system was done. Pertinent negatives are no GI or bleeding. No upcoming surgeries. He has history of multiple medical disorders including cataplexy and has had multiple syncopal episodes. He has not been able to describe them to me in any significant detail. He states they come randomly. He has been able to identify no precipitating factors. At times he has noted palpitations. PAST MEDICAL HISTORY: Hypertrophic cardiomyopathy, obstructive sleep apnea on CPAP, cataplexy, degenerative joint disease and possible ankylosing spondylitis, restless legs syndrome, asthma, hypertension, Crohn disease, bipolar disorder. MEDICATIONS AT HOME: The patient is unsure as to what medications he takes. ALLERGIES: HE HAS MULTIPLE ALLERGIES INCLUDING TRAMADOL, CODEINE, AMITRIPTYLINE, CYCLOBENZAPRINE, TELMISARTAN, AND NSAIDs. PERSONAL HISTORY: He states that his mother had hypertension and his father had heart disease at a young age. EXAMINATION: Comfortable, but anxious. No apparent distress. Pulse 80, blood pressure 140/66. Neck: Supple. No JVD. Chest: Clear. Heart sounds S1, S2, regular. Constitutional: Moderately overweight. Heart sounds S1 and S2 regular. No murmurs, no gallops. Abdomen: Soft. Extremities: Negative for CCE. BIOMEDICAL ENGINEERING TECHNOLOGIST: Alert and oriented x3. LABORATORY DATA: Reviewed. Pertinent findings: Troponin is negative x3. LDL is 64. HDL is 29. Creatinine is normal. CBC is normal. CT chest done yesterday did not show any evidence of dissection or pulmonary embolus. EKG shows sinus rhythm with anterior T-wave inversions consistent with apical hypertrophic cardiomyopathy. Interestingly his EKG in 2014 was normal. ASSESSMENT AND PLAN: This gentleman has atypical chest discomfort. He had an angiogram about 16 months ago which did not show any evidence of significant coronary artery disease. I think his treatment requires high doses of beta blockers or a combination of beta blockers and calcium channel blockers. I would also recommend tele monitoring given his history of syncope. These could be episodes of cataplexy as well. However, with hypertrophic cardiomyopathy, arrhythmias are always a consideration. At this point I would continue with medical management. He is advised to follow up with Dr. Sami Juarez, who can initiate an antiarrhythmic workup and see whether or not the patient would benefit from a prophylactic defibrillator.
[2017-03-23] MEDS ORDERED: MeTOProlol XL 50 mg ER24 Tablet PO ONE (13:40)
--- NOTE | 2017-03-23 16:34 | PCM.PNMED ---
Subjective Date of Service Mar 23, 2017 Subjective The patient has a history of myocardial infarction 18 months ago admitted to [facility] in [place]. He is followed by Dr. Sami Chen. Since his MD and stenting he has had approximately 6 subsequent hospital evaluations for acute chest pain. He reports being told that each of these was not heart related. He has not had repeat cardiac catheterization since his myocardial infarction. Patient had an angiogram about 16 months ago which did not show any evidence of significant coronary artery disease. On Echo patient has hypertrophic cardiomyopathy with recommendations to use high dose Metoprolol XL to allow the chamber to fill and pump more effective. No overnight events. Today he reports feeling well. He continues to be without chest pain. He uses a CPAP device for [place]O regularly. Exam Vital Signs Vital Sign - Last Date Time Temp Pulse Resp B/P Pulse Ox O2 Delivery O2 Flow Rate FiO2 03/23/17 12:42 36.7 69 16 127/82 95 Room Air Intake and Output 03/22/17 03/22/17 03/23/17 Cumulative From/Thru 15:00 23:00 07:00 03/22/17 09:59 - 03/23/17 06:18 Intake Total 999 ml 431 ml 200 ml 1630 ml Output Total 1350 ml 600 ml 1950 ml Balance 999 ml -919 ml -400 ml -320 ml Intake Oral 250 ml 200 ml 450 ml IV Total 999 ml 181 ml 1180 ml Output Urine Total 1350 ml 600 ml 1950 ml # Voids 2 2 Exam Constitutional: Obese middle-aged man appears comfortable; no acute distress; vital signs noted Eyes: sclerae anicteric, no conjunctival pallor, ENMT: ears, nose atraumatic; oral mucosa moist Neck: supple, JVD difficult to assess due to obesity Chest: symmetric, no pain or lesions Resp: auscultation clear, no wheezes, rales or dullness Cardiac: S1, S2, regular, no murmur Abdomen: bowel sounds present, nontender, no organomegaly Musculoskeletal: no joints with acute erythema, swelling Skin and soft tissues: no rash; no pitting edema Peripheral pulses: normal at wrist, feet Lymphatic: no adenopathy cervical Neurological: Cranial Nerves - face symmetric Reflexes - BJ, KJ symmetric Motor - 5/5 strength, normal tone Coordination - normal movement, mild tremor mostly in left upper extremities Sensory - vibration and light touch intact Psych & Mental Status - oriented and appropriate IVs and Medications Medications Reviewed: Medications were reviewed in detail Lab and Diagnostics Result Diagram: 03/23/17 03203/23/17 032 X-Rays, CTs and MRIs PROCEDURE: CT ANG CHEST/ABD W/WO CONTRAST ([id number]) IMPRESSION: 1. No evidence of aortic dissection. 2. No central pulmonary embolism. Dictated by: Jose Ambriz M.D. on 03/22/2017 at 13:00 PROCEDURE: X-RAY CHEST ONE VIEW, PORTABLE ([id number]) IMPRESSION: Negative chest. No acute cardiopulmonary process is evident. Dictated by: Chris Boland M.D. on 03/22/2017 at 9:58 . 12-lead ECG 03/22/17 at 10:03 sinus rhythm 66, QTC 474 otherwise conduction intervals normal. Isolated Q wave III, inverted T waves V2-V6, I, aVL. [address] depression V3-V6, [address] depression I, [address] depression in aVL, all with downsloping T waves. Previous EKG 12/21/14 (prior to history of MD) sinus rhythm. Isolated Q in room 3. Normal anterolateral morphology. Cardiac Echo Impressions Echocardiogram Report Name: MEDINA BENAVIDEZ Study Date: 03/22/2017 Interpretation Summary There is moderate concentric hypertrophy with severe apical hypertrophy with cavity obliteration. The ejection fraction is estimated to be 70-75%. . Assessment & Plan 41-year-old man with known coronary artery disease and history of workup negative chest pain episodes presents with recurrence of a similar episode. The patient has a history of myocardial infarction 18 months ago admitted to [facility] in [place]. He is followed by Dr. Sami Chen. Since his MD and stenting he has had approximately 6 subsequent hospital evaluations for acute chest pain. He reports being told that each of these was not heart related. He has not had repeat cardiac catheterization since his myocardial infarction. Patient had an angiogram about 16 months ago which did not show any evidence of significant coronary artery disease. On Echo patient has hypertrophic cardiomyopathy with recommendations to use high dose Metoprolol XL to allow the chamber to fill and pump more effective. Hypertrophic cardiomyopathy, present on admission. New diagnosis. Active. - [place] beta valentino and calcium channel laquita blockade. Target HR approximately 50-60. - Continue telemetry monitoring - Plan outpatient cardiology follow-up as directed by cardiology technologist - Metoprolol XL 100 mg PO daily. Acute chest pain, present on admission. Resolved. - Nitrates and morphine when necessary; planned taper off if troponins are negative - Cardiology consult; no plans for acute intervention - Cardiac diet [facility]. Obesity with ORLANDO, chronic. - Continue patient's home CPAP Hypertension, chronic. - Follow on increased beta valentino and calcium channel valentino. Adjust other medications as needed Chronic pain. Due to fibromyalgia and DJD. - Try to manage without escalation of opioid analgesics Asthma, chronic. No evidence of acute bronchospasm at this time. - When necessary bronchodilators Acetaminophen for mild pain when necessary. Bowel regimen Senna and MiraLAX scheduled and PRN. Zofran when necessary for nausea and vomiting. SubQ heparin for now. SCDs in place. High-risk medications: IV Morphine Disposition: Likely here for > 2 midnights. Dependent upon chest pain. Will be discharged to home when medically stable. Pain Evaluation: Adequate Pain Control GI Prophylaxis: Not indicated VTE Prophylaxis: Other VTE Mechanical Devices: Intermittant Pneumatic CD Resuscitation Status: CPR: Attempt Resuscitation Time spent 35 minutes Attending Statement I interviewed and examined the patient on rounds today. We will discontinue calcium channel valentino and increase long-acting beta valentino per recommendations from digital developer. I agree with the assessment and plan as stated above. GARETH POLLARD DO Mar 23, 2017 13:36 Reed Martinez MD Mar 23, 2017 17:07
--- NOTE | 2017-03-23 17:11 | NUR ---
Pain/POC The pt reported intermittent headaches today secondary to previous nitro gtt. Pain relieved with pain meds and anti-anxiety meds. This evening at 1430, the pt reported 5/10 chest discomfort that he states is "just like the angina I experience at home" - the pain was relieved with 1 nitro tab. An increase in PO metop was administered per Cardioloy and Resident, though only half the dose was given due to lower bp's and a HR of 66. The pt tolerated the medication. The POC is to DC home tomorrow if the pt remains stable. A&Ox3; VSS at this time.
--- NOTE | 2017-03-23 23:40 | NUR ---
PAIN Uneventful night, pt was anxious and c/o of a headache with mild chest discomfort at change of shift. Pt given 1 tab Percocet and 1mg Xanax with good results. Pt bradycardic in low 50's which is in goal range per MD notes. No other issues noted @ this time.
[2017-03-24 00:12] VITALS: BP 112/74; PULSE 52; RESP 16; O2SAT 97
[2017-03-24] MEDS: oxyCODONE-Acetamin 10-325 mg Tablet PO PRN ×2 (03:37→08:24)
[2017-03-24 03:44] VITALS: BP 115/74; PULSE 57; RESP 16; O2SAT 96
[2017-03-24 05:36] VITALS: PULSE 51
[2017-03-24] MEDS: Ondansetron 2 mg/mL 2 mL Inj IVPUSH PRN (06:44)
[2017-03-24 08:20] VITALS: BP 143/79; PULSE 51; RESP 18; O2SAT 92
[2017-03-24] MEDS: Sodium Chloride LOK Flush 10 mL Syringe IVFLUSH SCH (08:25)
[2017-03-24] MEDS ORDERED: MeTOProlol XL 50 mg ER24 Tablet PO SCH (08:30)
[2017-03-24] MEDS ORDERED: METO-272 PO (08:39)
--- NOTE | 2017-03-24 08:44 | PCM.DIMED ---
Discharge Instructions Date of Service Mar 24, 2017 Dates of Hospitalization Mar 22, 2017 at 14:04 Discharge Diagnosis Discharge Diagnosis Chest pain of uncertain cause, Myocardial infarction ruled out, Hypertrophic cardiomyopathy Medication Instructions Additional med instructions Discontinue carvedilol. Prescription for metoprolol is given to be more effective at relaxing your heart. Diet Discharge Diet: Heart Healthy Call your provider Call your provider for: Other (new or worsened symptoms) Patient Instructions Patient Instructions Your episodes of chest pain over the past year have not resulted in injury to your heart. If you have episodes similar to these in the future you may not need hospital evaluation. He should call 911 for any new or worsened chest pain symptoms. Her chest pain may be due to your hypertrophic cardiomyopathy. The best treatment is beta blockers and relaxation. We do not advise the use of narcotic analgesics or nitroglycerin for your typical symptoms, because they may produce more harm than benefit. You should contact her senior it architect for further management of this disorder. Follow-up plan Follow-up Dr. Chen in [place] Follow-up Provider: Allison Terry MD Follow-up with PCP in: 1 week (for a posthospitalization follow-up visit) Reed Martinez MD Mar 24, 2017 08:44
[2017-03-24 08:45] VITALS: PULSE 67
--- NOTE | 2017-03-24 11:52 | NUR ---
Social Work-discharge: Data:EMR Reviewed. Pt is on day 2 of hospitalization for unstable angina per H&P. pt is medically stable for discharge. SW updated by RN that pt needs taxi home. SW confirmed pt arrived via ambulance. SW called [employer] and arranged [employer] taxi for 1300. SW updated RN who will update pt at bedside. Pt to be picked up in the main lobby. All updated and agreeable to plan. Assessment:pt who is independent at baseline. Plan:Pt to discharge home today via Medicaid transport at 1300. No other SW needs identified.All updated and agreeable to plan. JACEK Cheng
--- NOTE | 2017-03-24 12:56 | NUR ---
Discharge The pt left the unit at 1255 in a wheelchair with a PLUNGER SCOOP OPERATOR. The pt left with all his belongings and his packet of discharge information. The pt verbalized understanding of all discharge teaching; including info on new medication doses and follow up appointment info. The pt is being transported home to [place] via taxi. The pt left the unit A&Ox3 with VSS.
--- NOTE | 2017-03-24 18:34 | PCM.DC.MED ---
Discharge Summary Date of Service Mar 24, 2017 Dates of Hospitalization Date of Hospital Admission Mar 22, 2017 at 14:04 Date of Discharge: Mar 24, 2017 Providers: Admitting Physician: Vic Martinez MD Primary Care Physician: Jose Marsh Attending Physician: Vic Martinez MD Diagnosis at Time of Discharge Diagnosis at Time of Discharge Chest pain of uncertain cause, Myocardial infarction ruled out, Hypertrophic cardiomyopathy Consultations Cardiology, Dr. Destin Davila, Dr. Yuval Marrero Procedures XRay, CTs & MRIs PROCEDURE: CT ANG CHEST/ABD W/WO CONTRAST ([id number]) IMPRESSION: 1. No evidence of aortic dissection. 2. No central pulmonary embolism. Dictated by: Jose Ambriz M.D. on 03/22/2017 at 13:00 PROCEDURE: X-RAY CHEST ONE VIEW, PORTABLE ([id number]) IMPRESSION: Negative chest. No acute cardiopulmonary process is evident. Dictated by: Chris Boland M.D. on 03/22/2017 at 9:58 . ECG 12 Lead 03/22/17 at 10:03 sinus rhythm 66, QTC 474 otherwise conduction intervals normal. Isolated Q wave III, inverted T waves V2-V6, I, aVL. [address] depression V3-V6, [address] depression I, [address] depression in aVL, all with downsloping T waves. Previous EKG 12/21/14 (prior to history of OK) sinus rhythm. Isolated Q in room 3. Normal anterolateral morphology. Cardiac Echo Impression Echocardiogram Report Name: MEDINA BENAVIDEZ Study Date: Interpretation Summary There is moderate concentric hypertrophy with severe apical hypertrophy with cavity obliteration. The ejection fraction is estimated to be 70-75%. Procedure: A two-dimensional transthoracic echocardiogram with color flow and Doppler was performed. The study quality was technically difficult. There is no prior echocardiogram noted for this patient. The patient was in normal sinus rhythm during the exam. Left Ventricle: The left ventricle is normal in size. There is moderate concentric hypertrophy with severe apical hypertrophy with cavity obliteration. The ejection fraction is estimated to be 70-75%. Right Ventricle: The right ventricle is grossly normal size. Atria: Borderline left atrial enlargement. The right atrium grossly appears normal in size. The interatrial septum is intact with no evidence for an atrial septal defect. Mitral Valve: The mitral valve is grossly normal. There is trace mitral regurgitation. Aortic Valve: The aortic valve is grossly normal. No aortic regurgitation is present. Tricuspid Valve: The tricuspid valve is normal. There is trace tricuspid regurgitation. The right ventricular systolic pressure is estimated at 27 mmHg assuming a right atrial pressure of 3 mm Hg. Pulmonic Valve: The pulmonic valve is not well visualized. Great Vessels: The aortic root is normal size. The dimensions of the ascending aorta are normal. The pulmonary artery is normal size. The IVC is of normal diameter and collapses greater than 50% with a sniff. This suggests a low right atrial pressure of 3 mm Hg. Pericardium/ Pleura There is no pericardial effusion. There is no pleural effusion. MMode/2D Measurements & Calculations LVIDd: 4.8 cm LA A2 area LVOT diam: 2.2 cm LV finley. diameter/BSA LVIDs: 2.2 cm Ao root diam (cm/m^2): 2.0 FS: 54.0 % IVSd: 1.4 cm LA A4 area asc Aorta Diam LVPWd: 1.3 cm LA length Ao Arch Diam (vol): 5.6 cm (Prox Trans): LA vol: 73.7 ml .3 cm LA vol index : 30.2 ml/m2 LV sys. diameter/BSA (cm/m^2): 0.92 Doppler Measurements & Calculations Ao V2 max: 135.6 cm/secMV E max carlitos MV E/A: 1.5 TR max carlitos Ao max P.4 mmHg : 88.3 cm/sec Med Peak E' Carlitos : 242.7 cm/sec Ao mean P.2 mmHg MV A max carlitos TR max PG LVOT Max Carlitos : 58.9 cm/sec E/E' med: 17.3 : 23.6 mmHg : 100.8 cm/sec Lat Peak E' Carlitos PA V2 max : 85.2 cm/sec BARRY(I,D): 3.0 cm E/E' lat: 14.2 PA mean PG sev ratio: 0.80 E/e' average : 1.7 mmHg MV dec time: 0.22 sec Ao V2 mean LV V1 max PG PA V2 mean : 97.2 cm/sec : 63.1 cm/sec Ao V2 VTI LV V1 VTI: 22.8 cmPA pr(Accel) : 41.7 mmHg BARRY(V,D): 2.8 cm2 BARRY indexed to BSA (cm^2/m^2): 1.2 Electronically signed by: Shun Davila on Reading Physician:03/22/2017 03:43 PM . Brief History History of Present Illness (per admission note): The patient has a history of myocardial infarction 18 months ago admitted to [facility] in [place]. He is followed by Dr. Sami Chen. Since his OK and stenting he has had approximately 6 subsequent hospital evaluations for acute chest pain. He reports being told that each of these was not heart related. He has not had repeat cardiac catheterization since his myocardial infarction. He was in his usual state of health until 7:30 AM on the day of admission. He experienced episode of palpitation which began at rest and lasts approximately 30 minutes. Toward the end this began to experience chest pressure which felt like a "Perry and "in his midsternal and left precordial area. This radiated slightly to his left shoulder. He experienced mild diaphoresis, mild shortness of breath and mild nausea. He notes the pain was slightly worse with movement and certain positions but otherwise no exacerbating or palliating factors. It is improved slightly since admission with nitroglycerin and morphine. The pain is similar in character to his other recent hospital evaluations. He states that it usually does not go along this long. He does not have exertional chest pain, although he usually ambulates with a wheelchair due to his cataplexy disorder. He has no PND, orthopnea or increased ankle swelling. He uses a CPAP device for [place] regularly. . Hospital Course Hypertrophic cardiomyopathy, present on admission. New diagnosis. Active. -Change low-dose carvedilol to high-dose metoprolol beta valentino. Target HR approximately 50-60. - Metoprolol XL 100 mg PO daily. - Follow-up with Dr. Juarez Acute chest pain, present on admission. Resolved. Possibly anginal complaint related to hypertrophic cardiomyopathy - Patient is advised that current chest pain complaint does not represent significant cardiac ischemia. He is advised to come tremors department only for a change in pattern or worsening of chest complaints. Obesity with [place], chronic. - Continue patient's home CPAP Hypertension, chronic. - Follow on increased beta valentino. Adjust other medications as needed Chronic pain. Due to fibromyalgia and DJD. - Try to manage without escalation of opioid analgesics Asthma, chronic. No evidence of acute bronchospasm at this time. - When necessary bronchodilators Exam Vital Signs (Last) Date Time Temp Pulse Resp B/P Pulse Ox O2 Delivery O2 Flow Rate FiO2 03/24/17 08:20 36.9 51 18 143/79 92 Room Air Exam General: Obese man with mild myoclonic tremor no acute distress HEENT: sclerae anicteric, oral mucosa moist Neck: no JVD Chest: clear to auscultation Cardiac: S1S2, regular, no murmur Abdomen: BS normal, non-tender Extremities: No pitting edema Neuro: A&O, cranial nerves symmetric, motor strength 5/5, coordination normal April Test 03/22/17 10:00 03/22/17 13:39 03/22/17 15:35 03/22/17 19:34 Prothrombin Time 10.2sec (8.1-12.5) Prothromb Time International Ratio 0.95ratio Hemoglobin A1c 5.3% (4.8-5.6) Magnesium Level 1.9mg/dL (1.6-2.6) Total Bilirubin 0.3mg/dL (0.0-1.2) Aspartate Amino Transf (AST/SGOT) 8U/L (0-50) Alanine Aminotransferase (ALT/SGPT) 6U/L (0-44) Alkaline Phosphatase 63U/L (25-150) Total Protein 6.2g/dL (6.4-8.4) Albumin 3.8g/dL (3.4-5.0) Thyroid Stimulating Hormone (TSH) 1.880uIU/mL (0.450-4.500) Activated Partial Thromboplast Time 32.4sec (22.8-33.0) Hold Urine Received (Received) Total Creatine Kinase 61U/L (21-232) Creatine Kinase MB 1.6ng/mL (0.0-10.4) Creatine Kinase MB % % (0.0-5.0) Troponin T < 0.010ug/L (0.0-0.011) Test 03/23/17 03:20 White Blood Count 5.2th/mm3 (3.8-10.1) Red Blood Count 4.02mil/mm3 (4.40-5.80) Hemoglobin 13.0g/dL (13.8-17.2) Hematocrit 39.2% (41.0-50.0) Mean Corpuscular Volume 97.5fL (81-100) Mean Corpuscular Hemoglobin 32.3pg (27.0-35.0) Mean Corpuscular Hemoglobin Concent 33.2% (32.0-37.0) Red Cell Distribution Width 13.8% (12.3-15.4) Platelet Count 171bil/L (150-400) Neutrophils (%) (Auto) 57.7% (40-74) Lymphocytes (%) (Auto) 33.1% (14-46) Monocytes (%) (Auto) 8.6% (4-12) Eosinophils (%) (Auto) 0% (0-5) Basophils (%) (Auto) 0.4% (0-3) Sodium Level 144mEq/L (134-144) Potassium Level 3.9mEq/L (3.5-5.2) Chloride Level 106mEq/L (97-108) Carbon Dioxide Level 24mmol/L (18-29) Blood Urea Nitrogen 9mg/dL (6-24) Creatinine 0.80mg/dL (0.76-1.27) Estimat Glomerular Filtration Rate 112mL/min (>59) Glucose Level 96mg/dL (60-99) Calcium Level 9.5mg/dL (8.5-10.1) Triglycerides Level 177mg/dL (0-149) Cholesterol Level 129mg/dL (100-199) LDL Cholesterol, Calculated 64.600mg/dL (0-99) VLDL Cholesterol 35.400mg/dL HDL Cholesterol 29mg/dL (>39) Cholesterol/HDL Ratio 4.45 (0.0-4.4) Discharge Medications Discharge Medications Atorvastatin Calcium (Atorvastatin Calcium) 40 Mg Tablet 1 TAB PO HS (Reported) Budesonide/Formoterol 160-4.5 mcg Inh (Symbicort 160-4.5 mcg Inh) 120 Puff Inhaler 2 PUFF PO HS (Reported) Divalproex (Divalproex) 250 Mg Tablet.dr 1 TAB PO BID (Reported) Doxazosin (Cardura) 4 Mg Tablet 4 MG PO HS (Reported) Duloxetine (Duloxetine) 60 Mg Capsule.dr 1 CAPSULE PO BID (Reported) Ferrous Gluconate (Ferrous Gluconate) 324 Mg Tab 1 TAB PO QAM (Reported) Haloperidol (Haloperidol) 1 Mg Tablet 2 MG PO HS (Reported) Losartan Potassium (Losartan Potassium) 25 Mg Tablet 1 TAB PO QAM (Reported) Metoprolol Succinate ER (Metoprolol Succinate ER) 50 Mg Tab.er.24h 100 MG PO DAILY Prescribed by: VIC MARTINEZ MD Omeprazole (Omeprazole) 40 Mg Capsule.dr 1 CAPSULE PO BID (Reported) Prazosin (Prazosin) 2 Mg Capsule 1 CAPSULE PO QAM (Reported) Pregabalin (Lyrica) 300 Mg Capsule 1 CAPSULE PO BID (Reported) Sulfasalazine (Sulfasalazine) 500 Mg Tablet 1,000 MG PO TIDPC (Reported) Tizanidine (Tizanidine) 4 Mg Tablet 2 TAB PO TID (Reported) Torsemide (Torsemide) 20 Mg Tablet 10 MG PO QAM (Reported) As needed Albuterol Sulfate (Ventolin HFA Inhaler) 200 Puff/18 Gm Inhaler 2 PUFFS INHALATION PRN For Shortness of Breath (Reported) Alprazolam (Alprazolam) 1 Mg Tablet 1 MG PO BID PRN PRN For Anxiety or Agitation (Reported) Epinephrine (Epipen 2-Jonah) 0.3 Mg/0.3 Ml Auto.injct 0.3 MG IJ PRN PRN PRN For Anaphyllaxis (Reported) Lidocaine HCl (Lidocaine) 142 Appl/37.5 Gm Oint 1 APPLIC TOPICAL PRN Neuropathy (Reported) Loperamide (Loperamide) 2 Mg Capsule 1 CAPSULE PO PRN For Diarrhea or Loose Stool (Reported) Meclizine (Bonine) 25 Mg Tab.chew 25 MG PO PRN For Dizziness (Reported) Ondansetron (Ondansetron) 4 Mg Tablet 4-8 MG PO Q8 PRN PRN For Nausea (Reported ) Promethazine (Promethazine) 25 Mg Tablet 2 TAB PO PRN For Nausea (Reported) Rizatriptan ODT (Rizatriptan) 10 Mg Tab.rapdis 10 MG PO DAILY PRN PRN For Headache (Reported) Additional med instructions Discontinue carvedilol. Prescription for metoprolol is given to be more effective at relaxing your heart. Followup Plan Follow-up plan Follow-up Dr. Juarez in [place] Discharge Diet: Heart Healthy Patient Instructions Your episodes of chest pain over the past year have not resulted in injury to your heart. If you have episodes similar to these in the future you may not need hospital evaluation. He should call 911 for any new or worsened chest pain symptoms. Her chest pain may be due to your hypertrophic cardiomyopathy. The best treatment is beta blockers and relaxation. We do not advise the use of narcotic analgesics or nitroglycerin for your typical symptoms, because they may produce more harm than benefit. You should contact her reception interviewer for further management of this disorder. Follow-up Provider: Allison Terry MD Follow-up with PCP in: 1 week (for a posthospitalization follow-up visit) Time spent 35 minutes copies to: Allison Terry MD; Sami Juarez MD, Jeffrey W MD Mar 24, 2017 08:45
== END 2017-03-24 13:03 | disposition home or self-care (01) ==
LOC: EDUNIT# 09:03 → SED 09:03 → EDBD 09:03 → INTOOBSV 14:04 → CCU 14:04 → PCC 20:30
PROVIDERS: ADMIT Internal Medicine; ATTEND Internal Medicine
DX: R07.9 Chest pain, unspecified (principal); I25.2 Old myocardial infarction; I42.2 Other hypertrophic cardiomyopathy; E66.9 Obesity, unspecified; G47.33 Obstructive sleep apnea (adult) (pediatric); I11.0 Hypertensive heart disease with heart failure; M79.7 Fibromyalgia; G89.4 Chronic pain syndrome; M19.90 Unspecified osteoarthritis, unspecified site; G47.419 Narcolepsy without cataplexy; J45.909 Unspecified asthma, uncomplicated; K50.90 Crohn's disease, unspecified, without complications; I50.9 Heart failure, unspecified; F31.9 Bipolar disorder, unspecified; F41.9 Anxiety disorder, unspecified; G25.81 Restless legs syndrome; E78.00 Pure hypercholesterolemia, unspecified; F17.210 Nicotine dependence, cigarettes, uncomplicated; Z95.5 Presence of coronary angioplasty implant and graft; Z79.51 Long term (current) use of inhaled steroids; Z99.3 Dependence on wheelchair
CPT/HCPCS: 36415; 71010; 71275; 74175; 80048; 80053; 80061; 82550; 82553; 82948; 83036; 83735; 84443; 84484; 85025; 85610; 85730; 87641; 93005; 96361; 96374; 96375; 96376; 99291; 99292; C8929; G0378; J0131; J1644; J2270; J2405; J7030; Q9957; Q9967

== ENCOUNTER 2017-04-19 18:58 | Observation (INO) | payer OTHER ==
[2017-04-19] VITALS (10 sets, daily range): BP systolic 74–122; BP diastolic 37–85; PULSE 54–64; RESP 18–20; O2SAT 93–98
[~2017-04-19] VITALS: Ht 172.7 cm; Wt 142.1 kg
[~2017-04-19 18:58] MED LIST changes: +ALBU18HF INHALATION; -ALBU8.5H2 IH; +ALPR1TAB7 PO; +ATOR40TA69 PO; -BUPR200T2 PO; -CELE200C PO; -DICL100G8 TP; -DICY10CA56 PO; +DIVA250T4 PO; +DOXA4TAB2 PO; +DULO60CA61 PO; -EPIN0.3P2 IJ; +EPIN0.3P2 IM; -ERGO500029 PO; +FEG324 PO; +HALO1TAB PO; -HYDR-3740 PO; +LIDO5O TOPICAL; -LIDOCAINE 2% TOP; +LOPE2CAP PO; -LOPE2TAB32 PO; +LOSA25TA21 PO; -MAGN250T37 PO; +MECL-114 PO; -MECL-125 PO; +METO-369 PO; -OMEP40CA3 PO; +OMEP40CA36 PO; +PRAZ2CAP2 PO; -PREG225C PO; +PREG300C PO; -PROC5TAB50 PO; +PROM25TA14 PO; -PROP40TA5 PO; -QUET200T58 PO; +SYMINH INHALATION; -TIZA4TAB PO; +TIZA4TAB4 PO; +TORS20TA3 PO; -TRAZ-118 PO; -VENL150C PO
--- NOTE | 2017-04-19 19:37 | ED.REPORT ---
HPI-Neurologic Deficit Date of Service Apr 19, 2017 ED Provider: Mukund Awad MD Pt is a 41 y/o male with a history of CHF, CAD, hypercardial myopathy who presents to the ED via EMS from [facility] with a syncopal episode onset 1800. Per EMS, pt's roommate saw the pt pass out on his chair and was unresponsive for a few minutes. Pt reports having a 30 minute episode of L- sided chest pain that radiated to his shoulder at 1800. Additional symptoms include generalized weakness, headache, dizziness, and slurred speech resolved with water. He also reports nausea, difficulty swallowing, and a dry oropharynx that is all baseline. He denies no blurry vision, fever, or chills. Pt reports drinking less water than usual and he is not sure why. He has had syncopal events in the past. He reports taking Percocet and Zanaflex today. Per pt's nurse, pt's blood pressure was 100/70 now 96/53, and his blood sugar was 132 in the field. Nursing Notes Stated Complaint: NEAR SYNCOPE Chief Complaint: Neuro Symptoms/ Deficits Nursing Notes Reviewed: Yes Allergies: Coded Allergies: tramadol (Verified Allergy, Intermediate, 03/22/17) Squash (Verified Allergy, Unknown, Anaphylaxis, 04/19/17) cyclobenzaprine HCl (Verified Allergy, Unknown, 03/22/17) NSAIDS (Non-Steroidal Anti-Inflamma (Verified Adverse Reaction, Intermediate, GERD, 03/22/17) amitriptyline (Verified Adverse Reaction, Intermediate, "DRUNKEN FEELING" , 04/19/17) codeine (Verified Adverse Reaction, Intermediate, DIFFICULTY SWALLOWING, ) telmisartan (Verified Adverse Reaction, Intermediate, "DRUNKEN FEELING", ) Uncoded Allergies: GHOST PEPPER (Allergy, Severe, Anaphylaxis, 04/19/17) ZUCCHINI (Allergy, Severe, ANAPHYLAXIS, 04/19/17) Scheduled Atorvastatin Calcium (Atorvastatin Calcium) 40 Mg Tablet 40 MG PO HS Divalproex (Divalproex) 250 Mg Tablet.dr 250 MG PO BID Duloxetine (Duloxetine) 60 Mg Capsule.dr 60 MG PO BID Ferrous Gluconate (Ferrous Gluconate) 324 Mg Tab 324 MG PO QAM Losartan Potassium (Losartan Potassium) 25 Mg Tablet 25 MG PO QAM Metoprolol Succinate ER (Metoprolol Succinate ER) 50 Mg Tab.er.24h 50 MG PO QAM Fords-3/Dha/Epa/Fish Oil (Fish Oil 1,000 mg Softgel) 1 Each Capsule 1 EACH PO QAM Omeprazole (Omeprazole) 40 Mg Capsule.dr 40 MG PO BIDAC Prazosin (Prazosin) 2 Mg Capsule 2 MG PO QAM PRAZOSIN 2 MG IN AM AND 4 MG AT HS Prazosin (Prazosin) 2 Mg Capsule 4 MG PO HS PRAZOSIN 2 MG IN AM AND 4 MG AT HS Pregabalin (Lyrica) 300 Mg Capsule 300 MG PO BID Sulfasalazine (Sulfasalazine) 500 Mg Tablet 1,000 MG PO TIDPC Tizanidine (Tizanidine) 4 Mg Tablet 8 MG PO TID Torsemide (Torsemide) 20 Mg Tablet 10 MG PO QAM Scheduled PRN Albuterol Sulfate (Ventolin HFA Inhaler) 200 Puff/18 Gm Inhaler 2 PUFFS INHALATION Q4H PRN PRN For Shortness of Breath Alprazolam (Alprazolam) 1 Mg Tablet 1 MG PO BID PRN PRN For Anxiety or Agitation Epinephrine (Epipen 2-Jonah) 0.3 Mg/0.3 Ml Auto.injct 0.3 MG IM ASDIRECTED PRN PRN For Anaphyllaxis Lidocaine HCl (Lidocaine) 142 Appl/37.5 Gm Oint 1 APPLIC TOPICAL PRN Neuropathy TO LEFT THIGH, NECK, AND/OR LOWER BACK Loperamide (Loperamide) 2 Mg Capsule 2 MG PO Q6H PRN PRN For Diarrhea or Loose Stool Meclizine (Bonine) 25 Mg Tab.chew 25 MG PO Q8H PRN PRN For Dizziness Ondansetron (Ondansetron) 4 Mg Tablet 4-8 MG PO Q8H PRN PRN For Nausea Promethazine (Promethazine) 25 Mg Tablet 50 MG PO TID PRN PRN For Nausea Rizatriptan ODT (Rizatriptan) 10 Mg Tab.rapdis 10 MG PO ASDIRECTED PRN PRN For Headache TAKE 1 TABLET AT ONSET OF HEADACHE. MAY REPEAT IN 2 HRS IF NEEDED. oxyCODONE-Acetaminophen 10-325 mg (oxyCODONE-Acetaminophen 10-325 mg) 1 Each Tablet 1 TABLET PO TID PRN PRN For Pain General Time Seen by Provider: 19:30 Chief Complaint Syncope Hx Obtained From: Patient, EMS Arrived By: Ambulance Sudden in Onset?: Yes Onset Occurred: 1 - 4 hours ago Severity: Current: Mild Severity: Maximum: Mild Recent Healthcare: No recent hospitalization, Recent doctor visit Similar Sx Previous: No Past Medical History Past Medical History Depression/Anxiety. PTSD. [place] Pulmonary artery disease Hypertension High cholesterol Possible dissociative disorder. Suspected bipolar disorder. Malignant and borderline personality disorder. Suspected possible Crohn's disease. Migraine headaches. Self-reported history of fibromyalgia Chronic pain, and on pain plan with PCP Dr. Armstrong, joaquín Vicphilomena MICHELLE Reports: Asthma, Congestive heart failure, Mental illness Past Surgical History exploratory surgery s/p pancreatitis Status post steroid injection for back pain Status post negative cardiac catheterization December 11, 2013. Reports: Appendectomy Family History AK (father and aunt) before 50 Reports: Diabetes mellitus Smoking History Current Every Day Smoker Social History Alcohol Use: "Social" Other Social History: Local resident Ambulatory Status Independent Review of Systems Dry oropharynx, baseline Constitutional: Reports: Weakness - generalized, Denies: Chills, Fever Eyes: Denies: Blurred bilateral Cardiovascular: Reports: Chest pain GI: Reports: Dysphagia (baseline), Nausea (baseline) Neurologic: Reports: Dizziness, Headache, Slurred speech (resolved with water) , Syncope Complete sys rev & neg: except as marked. Physical Exam Initial Vital Signs Vital Signs (First) Date Time Temp Pulse Resp B/P Pulse Ox O2 Delivery O2 Flow Rate FiO2 04/19/17 19:37 36.8 63 18 96/53 94 Room Air Initial VS: Reviewed Neck: Supple, Full range of motion Extremities: Vascular intact, Neuro intact, No swelling, No tenderness Skin: Warm, Dry, No cyanosis Psychiatric: Mood/affect normal, Behavior normal, Normal thought content General/Constitutional: Awake, Alert Head / Eyes: Atraumatic, Normocephalic Respiratory / Chest: Atraumatic, Breath sounds NL, Breath sounds = bilat, No respiratory distress Cardiovascular: Heart rate NL, Regular rhythm, Heart sounds NL Neurologic: Oriented X3, CN II - XII intact 5/5 strength Slurred speech resolved with water Normal finger-nose test bilaterally Normal nichols-heel test bilaterally ENT: Atraumatic, Airway patent Mouth: Positive: Mucous membranes dry Abdomen: Soft, Non-tender Interpretation & Diagnostics Lab Results Interpretation Result Diagram: 04/19/17203204/19/172032 Test 04/19/17 20:33 04/19/17 20:34 04/19/17 20:44 White Blood Count 4.2th/mm3 (3.8-10.1) Red Blood Count 3.59mil/mm3 (4.40-5.80) Hemoglobin 11.6g/dL (13.8-17.2) Hematocrit 34.0% (41.0-50.0) Mean Corpuscular Volume 94.7fL (81-100) Mean Corpuscular Hemoglobin 32.3pg (27.0-35.0) Mean Corpuscular Hemoglobin Concent 34.1% (32.0-37.0) Red Cell Distribution Width 13.7% (12.3-15.4) Platelet Count 162bil/L (150-400) Neutrophils (%) (Auto) 47.0% (40-74) Lymphocytes (%) (Auto) 41.9% (14-46) Monocytes (%) (Auto) 10.4% (4-12) Eosinophils (%) (Auto) 0% (0-5) Basophils (%) (Auto) 0.5% (0-3) Prothrombin Time 10.3sec (8.1-12.5) Prothromb Time International Ratio 0.96ratio Sodium Level 139mEq/L (134-144) Potassium Level 3.9mEq/L (3.5-5.2) Chloride Level 102mEq/L (97-108) Carbon Dioxide Level 21mmol/L (18-29) Blood Urea Nitrogen 8mg/dL (6-24) Creatinine 0.85mg/dL (0.76-1.27) Estimat Glomerular Filtration Rate 105mL/min (>59) Glucose Level 99mg/dL (60-99) Calcium Level 8.5mg/dL (8.5-10.1) Magnesium Level 1.9mg/dL (1.6-2.6) Total Bilirubin 0.2mg/dL (0.0-1.2) Aspartate Amino Transf (AST/SGOT) 9U/L (0-50) Alanine Aminotransferase (ALT/SGPT) 6U/L (0-44) Alkaline Phosphatase 60U/L (25-150) Pro-B-Type Natriuretic Peptide 412.6pg/mL (0-86) Total Protein 5.9g/dL (6.4-8.4) Albumin 3.8g/dL (3.4-5.0) Lactic Acid Level 1.8mmol/L (0.4-2.0) Hold Savage Top Tube Received (Received) Urine Color Yellow (YELLOW) Urine Appearance Clear (CLEAR,HAZY) Urine pH 6.5 (5.0-8.0) Urine Specific [place] 1.005 (1.003-1.035) Urine Protein Negativemg/dL (NEG,TRACE) Urine Glucose (UA) Negativemg/dL (NEGATIVE) Urine Ketones Negativemg/dL (NEGATIVE) Urine Occult Blood Negative (NEGATIVE) Urine Nitrite Negative (NEGATIVE) Urine Bilirubin Negative (NEGATIVE) Urine Urobilinogen Normalmg/dL (NORMAL) Urine Leukocyte Esterase Negative (NEGATIVE) Urine RBC 0-2/hpf (0-2) Urine WBC 0-5/hpf (0-5) Urine Epithelial Cells Occasional/hpf (NONE-MOD) Urine Crystals None seen (NONE SEEN) Urine Bacteria Few/hpf (NONE-FEW) Urine Hyaline Casts None/lpf (NONE) Urine Granular Casts None seen (NONE SEEN) Urine Waxy Casts None seen (NONE SEEN) Urine Red Blood Cell Casts None seen (NONE SEEN) Urine White Blood Cell Casts None seen (NONE SEEN) Urine Mucus None seen (None Seen) Urine Trichomonas None seen (NONE SEEN) Urine Yeast None (NONE SEEN) Urinalysis Comment None Urine Culture Reflexed Not indicated ECG Interpretation ECG Interpretation: Sinus rhythm, rate 62 T wave inversion in 1, 2, v2-v6 with ST depressions in those leads Unchanged from previous Time: 19:38 Interpreted by: ED physician X-Ray Chest Interpretation Chest Xray Interpretation: IMPRESSION: Reduced inspiratory volume, no acute disease. Dictated by: Rajendra Traore M.D. on 04/19/2017 at 20:38 Approved by: Rajendra Traore M.D. on 04/19/2017 at 20:38 View: Portable, 1 view Interpretation / Wet Read by: Interpret - Radiologist CT Head Interpretation IMPRESSION: Normal for age. No trauma found. Dictated by: Rajendra Traore M.D. on 04/19/2017 at 20:39 Approved by: Rajendra Traore M.D. on 04/19/2017 at 20:39 Study: Head CT no contrast Interpretation / Wet Read by: Interpret - Radiologist Re-Eval/Medical Decision Med Decision/Clinical Course 41-year-old male history of CAD with stents, hypertrophic cardiomyopathy presenting after syncopal event earlier today. This was reportedly witnessed by roommates. We are unable to reach them for history. He was hypotensive here. His orthostatics showed no change in heart rate though a 20 point drop in systolic blood pressure. He was given 1 L normal saline and his blood pressure stabilized. His CT brain with no acute pathology. Labs are unremarkable. Patient also complains of his typical chronic chest pain. He complained of dysarthria on arrival which resolved with drinking water. He is dehydrated on exam which may be the cause for his syncopal event and his hypotension. He does report decreased by mouth and recent days for unclear reason. Admitted to hospital. Re-Evaluation/Progress : Time of Eval: 21:23 Re-Evaluation/Progress Note: Pt rechecked. Discussed all lab and imaging results. Pt wishes to be admitted. Consultation : Referral / Consult Name: Diony Ocasio MD Consulted With: Hospitalist Call Returned at: 21:58 [employer] [address]: Will see patient, Agrees with plan, Accepts admit Note: Discussed pt's case with hospitalist, Dr. Ocasio. Counseled Regarding: Diagnosis, Lab results, Need for admission Discharge & Departure Impression: Primary Impression: Syncope Syncope type: unspecified Qualified Code: R55 - Syncope and collapse Additional Impressions: Hypotension Hypotension type: unspecified hypotension type Qualified Code: I95.9 - Hypotension, unspecified Chest pain Disposition: ADMITTED TO HOSPITAL Discharge Condition All VS Reviewed: Yes Condition: Stable Referrals: JUNITO OJEDA (PCP) Scribe Attestation Portions of this note were transcribed by Vibha Quinteros. I, Dr. Awad, personally performed the history, physical exam and medical decision-making; I reviewed and confirmed the accuracy of the information in the transcribed note. copies to: JUNITO OJEDA Ben M MD Apr 19, 2017 19:37 Vibha Quinteros Apr 19, 2017 19:58
[2017-04-19] MEDS ORDERED: 0.9% Sodium Chloride 500 ML IV ONE ×2 (20:15→21:45)
[2017-04-19 20:37] LABS: BASOPHILS % (AUTO) 0.5 % (0-3); EOSINOPHILS % (AUTO) 0 % (0-5); MONOCYTES % (AUTO) 10.4 % (4-12); Mean Corpuscular Hemoglobin 32.3 pg (27.0-35.0); Mean Corpuscular Volume 94.7 fL (81-100); Platelet Count 162 bil/L (150-400)
--- NOTE | 2017-04-19 20:40 | DRSVH ---
PROCEDURE: X-RAY CHEST ONE VIEW, PORTABLE ([id number]) INDICATIONS: syncope TECHNIQUE: One view of the chest was acquired. COMPARISON: None. FINDINGS: Surgical changes and devices: None. Lungs and pleura: No pleural effusions or pneumothorax. Lungs are clear. Mediastinum: Mediastinal contours appear normal. Heart size is normal. Bones and chest wall: No suspicious bony lesions. Overlying soft tissues appear unremarkable. IMPRESSION: Reduced inspiratory volume, no acute disease. Dictated by: Rajendra Traore M.D. on 04/19/2017 at 20:38 Approved by: Rajendra Traore M.D. on 04/19/2017 at 20:38
--- NOTE | 2017-04-19 20:40 | DRSVH ---
PROCEDURE: CT BRAIN WITHOUT CONTRAST ([id number]) INDICATIONS: syncope TECHNIQUE: Noncontrast 4.5 mm thick angled axial sections acquired from the foramen magnum to the vertex, with c oronal reformats. COMPARISON: None. FINDINGS: Image quality: Excellent. CSF spaces: Basal cisterns are patent. No extra-axial fluid collections. Ventricles are normal in size and shape. Brain: No midline shift. No intracranial masses or hemorrhage. Marte-white matter interface is norm al. Skull and face: Calvarium and visualized facial bones are intact, without suspicious lesions. Sinuses: Visualized sinuses and mastoids are clear. IMPRESSION: Normal for age. No trauma found. Dictated by: Rajendra Traore M.D. on 04/19/2017 at 20:39 Approved by: Rajendra Traore M.D. on 04/19/2017 at 20:39
[2017-04-19 20:55] LABS: INR 0.96 ratio
[2017-04-19 21:08] LABS: APPEARANCE,URINE CLEAR (CLEAR,HAZY); COLOR,URINE YELLOW (YELLOW); OCCULT BLOOD,URINE NEGATIVE (NEGATIVE); PH,URINE 6.5 (5.0-8.0); UROBILINOGEN,URINE NORMAL (NORMAL)
[2017-04-19 21:09] LABS: TROPONIN T < 0.010 ug/L (0.0-0.011)
[2017-04-19 21:11] LABS: Magnesium 1.9 mg/dL (1.6-2.6)
[2017-04-19] MEDS ORDERED: CARV6.252 PO (21:54)
[2017-04-19] MEDS ORDERED: Alum-Mag Hydrox-Simeth 30 mL Suspension PO PRN ×2 (22:00→22:30)
[2017-04-19] MEDS ORDERED: Ondansetron 2 mg/mL 2 mL Inj IVPUSH PRN ×2 (22:00→22:30)
[2017-04-19] MEDS ORDERED: METO-369 PO ×2 (22:12→22:17)
[2017-04-19] MEDS ORDERED: PRAZ2CAP2 PO (22:12)
[2017-04-19] MEDS ORDERED: OMEG-38 PO (22:16)
[2017-04-19] MEDS ORDERED: OXYC-466 PO (22:16)
[2017-04-19] MEDS ORDERED: Polyethylene Glycol (PEG) 17 Gm Powder PO PRN (22:30)
--- NOTE | 2017-04-19 22:37 | PCM.HPMED ---
Subjective Date of Service Apr 19, 2017 Primary Provider: Admitting Physician: Primary Care Physician: Marko MesaingJose farias Attending Physician: Admit Status: From the Emergency Department Chief Complaint: Syncopal episode, dizziness History of Present Illness: Michael Campoverde is a 41 -year-old male with a history of congestive heart failure with preserved ejection fraction, CAD with [place] and stent placement, and hypertrophic cardiomyopathy presented to the ED via EMS from [facility] for a syncopal episode that lasted 30 minutes earlier today. He has no memory of this event, but his roommate told him that he passed out and was unresponsive for a couple minutes. He reports having a half-hour episode of chest pain that radiated to his left shoulder prior to the event. He says he has been drinking less than normal lately but otherwise denies ongoing chest pain, palpitations, shortness of breath, fever/chills, decreased nausea, vomiting, diaphoresis or orthopnea. Of note, he has had 6 hospitalizations since his [place] and stenting around 2 years ago at [facility] in [place]. He says that each of these evaluations were negative for cardiac involvement, and he has not seen his fire safety manager Dr. Chen in quite some time but thinks he has an appointment sometime in April. Review of Systems: Complete review of systems was performed and negative except as above in history of present illness Allergies Coded Allergies: tramadol (Verified Allergy, Intermediate, 03/22/17) Squash (Verified Allergy, Unknown, Anaphylaxis, 04/19/17) cyclobenzaprine HCl (Verified Allergy, Unknown, 03/22/17) NSAIDS (Non-Steroidal Anti-Inflamma (Verified Adverse Reaction, Intermediate, GERD, 03/22/17) amitriptyline (Verified Adverse Reaction, Intermediate, "DRUNKEN FEELING" , 04/19/17) codeine (Verified Adverse Reaction, Intermediate, DIFFICULTY SWALLOWING, ) telmisartan (Verified Adverse Reaction, Intermediate, "DRUNKEN FEELING", ) Uncoded Allergies: GHOST PEPPER (Allergy, Severe, Anaphylaxis, 04/19/17) ZUCCHINI (Allergy, Severe, ANAPHYLAXIS, 04/19/17) Home Medications Scheduled Atorvastatin Calcium (Atorvastatin Calcium) 40 Mg Tablet 40 MG PO HS Budesonide/Formoterol 160-4.5 mcg Inh (Symbicort 160-4.5 mcg Inh) 120 Puff Inhaler 2 PUFF INHALATION HS Divalproex (Divalproex) 250 Mg Tablet.dr 250 MG PO BID Doxazosin (Cardura) 4 Mg Tablet 4 MG PO HS Duloxetine (Duloxetine) 60 Mg Capsule.dr 60 MG PO BID Ferrous Gluconate (Ferrous Gluconate) 324 Mg Tab 324 MG PO QAM Haloperidol (Haloperidol) 1 Mg Tablet 2 MG PO HS Losartan Potassium (Losartan Potassium) 25 Mg Tablet 25 MG PO QAM Metoprolol Succinate ER (Metoprolol Succinate ER) 50 Mg Tab.er.24h 100 MG PO DAILY Omeprazole (Omeprazole) 40 Mg Capsule.dr 40 MG PO BIDAC Prazosin (Prazosin) 2 Mg Capsule 2 MG PO QAM Pregabalin (Lyrica) 300 Mg Capsule 300 MG PO BID Sulfasalazine (Sulfasalazine) 500 Mg Tablet 1,000 MG PO TIDPC Tizanidine (Tizanidine) 4 Mg Tablet 8 MG PO TID Torsemide (Torsemide) 20 Mg Tablet 10 MG PO QAM Scheduled PRN Albuterol Sulfate (Ventolin HFA Inhaler) 200 Puff/18 Gm Inhaler 2 PUFFS INHALATION Q4H PRN PRN For Shortness of Breath Alprazolam (Alprazolam) 1 Mg Tablet 1 MG PO BID PRN PRN For Anxiety or Agitation Epinephrine (Epipen 2-Jonah) 0.3 Mg/0.3 Ml Auto.injct 0.3 MG IM ASDIRECTED PRN PRN For Anaphyllaxis Lidocaine HCl (Lidocaine) 142 Appl/37.5 Gm Oint 1 APPLIC TOPICAL PRN Neuropathy Loperamide (Loperamide) 2 Mg Capsule 2 MG PO Q6H PRN PRN For Diarrhea or Loose Stool Meclizine (Bonine) 25 Mg Tab.chew 25 MG PO Q8H PRN PRN For Dizziness Ondansetron (Ondansetron) 4 Mg Tablet 4-8 MG PO Q8H PRN PRN For Nausea Promethazine (Promethazine) 25 Mg Tablet 50 MG PO TID PRN PRN For Nausea Rizatriptan ODT (Rizatriptan) 10 Mg Tab.rapdis 10 MG PO ASDIRECTED PRN PRN For Headache PMH Depression/Anxiety. PTSD. KY Pulmonary artery disease Hypertension High cholesterol Possible dissociative disorder. Suspected bipolar disorder. Malignant and borderline personality disorder. Suspected Crohn's disease. Migraine headaches. Self-reported history of Fibromyalgia Chronic pain, and on pain plan with PCP Dr. Armstrong, takes Vicodin ES Asthma Congestive heart failure Surgical History Exploratory surgery s/p pancreatitis Steroid Injections for Back Pain Status post negative cardiac catheterization December 11, 2013. Appendectomy Family History Diabetes mellitus in father and aunt Father with coronary artery disease. Mother with hypertension. Social History Hx Alcohol Use: Yes (Socially) Hx Substance Use: No Hx Tobacco Use: Yes Smoking Status: Current Every Day Smoker Living Arrangement: with Friends/Roommate Additional Information He is on disability and ambulates in a wheelchair at baseline due to his cataplexy. Exam Vital Signs Vital Sign - Last Date Time Temp Pulse Resp B/P Pulse Ox O2 Delivery O2 Flow Rate FiO2 04/19/17 21:45 58 20 101/51 94 Room Air 04/19/17 19:37 36.8 Exam Gen.: Obese middle-aged man watching videos on his phone in bed in no acute distress HEENT: NCAT, PERRLA, EOMI. Membranes pink but dry. No oropharyngeal exudate or cobblestoning. Neck: Supple, no JVD or thyromegaly but difficult to assess due to body habitus. Chest: No signs of trauma. Symmetric rise and fall breathing. No tenderness to palpation at any point on the chest wall. CV: Regular rate and rhythm, normal S1 and S2. No murmurs, rubs, gallops. Pulmonary: Clear to auscultation bilaterally, distant breath sounds. No wheezes , rales, rhonchi. Abd: Soft, obese. Nontender. Bowel sounds normal throughout. Extremities: No cyanosis, clubbing, edema. Neuro: Alert and oriented 3. CN II through XII intact. Muscle strength 5 out of 5 globally, no focal deficits. Psych: Flat mood and affect. Lab and Diagnostics Result Diagram: 04/19/17203204/19/[id number] X-Rays, CTs and MRIs Brain CT 04/19/2017 IMPRESSION: Normal for age. No trauma found. Dictated by: Rajendra Traore M.D. on 04/19/2017 at 20:39 Approved by: Rajendra Traore M.D. on 04/19/2017 at 20:39 Chest X-ray 04/19/2017 IMPRESSION: Reduced inspiratory volume, no acute disease. Dictated by: Rajendra Traore M.D. on 04/19/2017 at 20:38 Approved by: Rajendra Traore M.D. on 04/19/2017 at 20:38 Cardiac Echo Impressions Echo 03/22/17 Interpretation Summary There is moderate concentric hypertrophy with severe apical hypertrophy with cavity obliteration. The ejection fraction is estimated to be 70-75%. Left Ventricle: The left ventricle is normal in size. There is moderate concentric hypertrophy with severe apical hypertrophy with cavity obliteration. The ejection fraction is estimated to be 70-75%. Right Ventricle: The right ventricle is grossly normal size. Atria: Borderline left atrial enlargement. The right atrium grossly appears normal in size. The interatrial septum is intact with no evidence for an atrial septal defect. Mitral Valve: The mitral valve is grossly normal. There is trace mitral regurgitation. Aortic Valve: The aortic valve is grossly normal. No aortic regurgitation is present. Tricuspid Valve: The tricuspid valve is normal. There is trace tricuspid regurgitation. The right ventricular systolic pressure is estimated at 27 mmHg assuming a right atrial pressure of 3 mm Hg. Pulmonic Valve: The pulmonic valve is not well visualized. Great Vessels: The aortic root is normal size. The dimensions of the ascending aorta are normal. The pulmonary artery is normal size. The IVC is of normal diameter and collapses greater than 50% with a sniff. This suggests a low right atrial pressure of 3 mm Hg. Pericardium/ Pleura There is no pericardial effusion. There is no pleural effusion. Assessment & Plan Michael Campoverde is an obese 41 -year-old male with a history of congestive heart failure with preserved ejection fraction, CAD with [place] and stent placement , and hypertrophic cardiomyopathy presented to the ED via EMS from [facility] for a syncopal episode that lasted 30 minutes earlier today preceded by chest pain that radiated to his left arm. He has no memory of this event. Syncopal episode, present on admission. Acute. Ongoing. - Likely due to hypovolemia, but there is a cardiac possibility with his history - Patient received 1 L in the ED, pressures continued to be low 100s systolic - 500 mL normal saline bolus ordered for pressures less than 90 systolic, encouraged by mouth intake - Monitor on telemetry - Limited echocardiogram ordered for the morning - Patient is on multiple medications that could cause this; consider medication consolidation with pharmacy or PCP CAD status post [place] with stent, present on admission. Chronic. - Patient has unchanged EKG, negative troponin and at least 6 hospitalizations with no cardiac involvement - Last echocardiogram was 03/22/2017; will order limited for tomorrow - Consider cardiology consult in the morning depending on echo results - Continue atorvastatin 40 mg at night - Trend troponin 2 Congestive heart failure with preserved ejection fraction, present on admission. Chronic. - Holding metoprolol, carvedilol, losartan until blood pressure stabilize - Hold torsemide 10 mg until pressures stabilize History of seizure disorder, present on admission. Chronic. - Continue divalproex 250 mg twice daily History of unknown psychotic disorder, present on admission. Chronic. - Continue Haldol 2 mg at night History of Crohn's disease, present on admission. Chronic. - Continue sulfasalazine 1000 mg 3 times daily with meals Depression/Anxiety, present on admission. Chronic. - Continue duloxetine 60 mg twice a day - Continue alprazolam 1 mg twice a day for anxiety PTSD, present on admission. Chronic. - Continue prazosin 2 mg in the morning and 4mg at night Hypertension, present on admission. Chronic. - Holding home metoprolol succinate 100 mg, carvedilol 6.25mg twice daily and losartan 25 daily until pressures stabilize Chronic pain, and on pain plan with PCP Dr. Armstrong, present on admission. Chronic. - Continue Lyrica 300 mg twice daily - Continue oxycodone regimen; do not escalate due to pain contract Obstructive sleep apnea, present on admission. Chronic. - Continue CPAP at night Anemia, present on admission. Chronic. - Continue ferrous gluconate 324 mg daily Asthma, present on admission. Chronic. - Continue Symbicort and albuterol as needed Tobacco use disorder, present on admission. Chronic. - Cessation counseled, patient uninterested at this time - Nicotine patch as needed Obesity, present on admission. Chronic. - BMI 46.6 - Patient uninterested in nutritional consult Acetaminophen as needed for pain, headache, fever. Bowel regimen as needed. Zofran for nausea. He also takes promethazine, will continue. Subcutaneous heparin on board. Patient status: Patient was admitted for observation length of stay likely < 2 midnights due to severity of presenting symptoms, ongoing treatment plan, and continued medical stability. GI Prophylaxis: Proton Pump Inhibitor VTE Prophylaxis: Sub-Q Heparin (Unfractionated) VTE Mechanical Devices: Intermittant Pneumatic CD Resuscitation Status: CPR: Attempt Resuscitation Attending Statement The patient was seen and examined together with Dr. Flores on 04/19 and I agree with the history, exam and plan as outlined in the note above. uJstino Flores DO Apr 19, 2017 22:37 Diony Ocasio MD Apr 20, 2017 02:58
[2017-04-19] MEDS ORDERED: 0.9% Sodium Chloride 500 ML IV PRN (23:15)
[2017-04-19] MEDS ORDERED: Lidocaine 5% 35.5 Gm Ointment TOPICAL PRN (23:20)
[2017-04-19] MEDS ORDERED: Albuterol 2.5 mg/3 mL Inhalation Solution NEB PRN (23:26)
[2017-04-19] MEDS: oxyCODONE-Acetamin 10-325 mg Tablet PO PRN (23:47)
[2017-04-19] MEDS: Heparin 5,000 Unit/mL Inj SUBQ SCH (23:47)
[2017-04-20] VITALS (7 sets, daily range): BP systolic 126–180; BP diastolic 77–135; PULSE 61–82; RESP 16–20; O2SAT 97–98
[2017-04-20 05:38] LABS: BASOPHILS % (AUTO) 0.5 % (0-3); EOSINOPHILS % (AUTO) 0.2 % (0-5); MONOCYTES % (AUTO) 8.8 % (4-12); Mean Corpuscular Hemoglobin 31.9 pg (27.0-35.0); Mean Corpuscular Volume 96.8 fL (81-100); NEUTROPHILS % (AUTO) 51.7 % (40-74); Platelet Count 152 bil/L (150-400)
[2017-04-20 06:00] LABS: TROPONIN T 0.01 ug/L (0.0-0.011)
--- NOTE | 2017-04-20 06:43 | NUR ---
Admit Admitted to 3024 from ED. Able to ambulate on arrival. Tele SR w/o c/o CP. RA w/o SOB. Denies n/v. Tolerating PO intake without any issues. Voiding per urinal. IV SL. SBA while OOB due to reports of falls and syncopal episodes at home. Educated on risk of injury from falls and strongly encouraged to have nursing with him at all times while OOB with verbal understanding. Personal belongings at bedside per patient request. Oriented to call light use with return demonstration.
[2017-04-20] MEDS: oxyCODONE-Acetamin 10-325 mg Tablet PO PRN ×3 (08:13→23:21)
[2017-04-20] MEDS: Pantoprazole 40 mg ER24 Tablet PO SCH ×2 (08:13→16:35)
[2017-04-20] MEDS: DULoxetine 30 mg DR Capsule PO SCH ×2 (08:13→20:18)
[2017-04-20] MEDS: Heparin 5,000 Unit/mL Inj SUBQ SCH ×2 (08:14→16:35)
[2017-04-20] MEDS: Sulfasalzine 500 mg Tablet PO SCH ×3 (08:18→16:35)
[2017-04-20] MEDS: MeTOProlol XL 50 mg ER24 Tablet PO SCH (09:13)
[2017-04-20] MEDS: 0.9% Sodium Chloride 1,000 ML IV SCH ×2 (09:13→20:19)
--- NOTE | 2017-04-20 11:40 | PCM.PNMED ---
Subjective Date of Service Apr 20, 2017 Subjective pt was mildly anxious this AM, wants his Xanax to tid prn c/o mild chest pain, but looked very comfortable, STAT EKG unchanged three trops were negative. pt wants to receive his percocet for his chronic back and neck pain. stated he has bad BAEZ with nitro, never tried imdur Exam Vital Signs Vital Sign - Last Date Time Temp Pulse Resp B/P Pulse Ox O2 Delivery O2 Flow Rate FiO2 04/20/17 06:12 61 04/20/17 04:56 36.4 18 126/86 98 Room Air Intake and Output 04/19/17 04/19/17 04/20/17 Cumulative From/Thru 15:00 23:00 07:00 04/19/17 19:37 - 04/20/17 05:39 Intake Total 1000 ml 400 ml 1400 ml Output Total 600 ml 600 ml Balance 1000 ml -200 ml 800 ml Intake Oral 400 ml 400 ml IV Total 1000 ml 0 ml 1000 ml Output Urine Total 600 ml 600 ml Exam obsese young male NAD, comfortably laying down on the bed no JVD, MMM, no LAD RRR, nl s1, s2 no mrg CTAB, no w,c S,ND,NT,normoactive BS+ warm, no edema, pulses 2/2 Lab and Diagnostics Result Diagram: 04/20/1751604/[id number] X-Rays, CTs and MRIs Brain CT 04/19/2017 IMPRESSION: Normal for age. No trauma found. Dictated by: Rajendra Traore M.D. on 04/19/2017 at 20:39 Approved by: Rajendra Traore M.D. on 04/19/2017 at 20:39 Chest X-ray 04/19/2017 IMPRESSION: Reduced inspiratory volume, no acute disease. Dictated by: Rajendra Traore M.D. on 04/19/2017 at 20:38 Approved by: Rajendra Traore M.D. on 04/19/2017 at 20:38 Cardiac Echo Impressions Echo 03/22/17 Interpretation Summary There is moderate concentric hypertrophy with severe apical hypertrophy with cavity obliteration. The ejection fraction is estimated to be 70-75%. Left Ventricle: The left ventricle is normal in size. There is moderate concentric hypertrophy with severe apical hypertrophy with cavity obliteration. The ejection fraction is estimated to be 70-75%. Right Ventricle: The right ventricle is grossly normal size. Atria: Borderline left atrial enlargement. The right atrium grossly appears normal in size. The interatrial septum is intact with no evidence for an atrial septal defect. Mitral Valve: The mitral valve is grossly normal. There is trace mitral regurgitation. Aortic Valve: The aortic valve is grossly normal. No aortic regurgitation is present. Tricuspid Valve: The tricuspid valve is normal. There is trace tricuspid regurgitation. The right ventricular systolic pressure is estimated at 27 mmHg assuming a right atrial pressure of 3 mm Hg. Pulmonic Valve: The pulmonic valve is not well visualized. Great Vessels: The aortic root is normal size. The dimensions of the ascending aorta are normal. The pulmonary artery is normal size. The IVC is of normal diameter and collapses greater than 50% with a sniff. This suggests a low right atrial pressure of 3 mm Hg. Pericardium/ Pleura There is no pericardial effusion. There is no pleural effusion. Assessment & Plan Michael Campoverde is an obese 41 -year-old male with a history of congestive heart failure with preserved ejection fraction, CAD with RI and stent placement , and hypertrophic cardiomyopathy presented to the ED via EMS from [facility] for a syncopal episode that lasted 30 minutes earlier today preceded by chest pain that radiated to his left arm. He has no memory of this event. acute, active Syncopal episode, POA, likely decreased preload in the setting of HCMP. Orthostatic v/s+ in ED. s/p 1liter NS and 500cc. -will continue IVF 100cc/hr -continue telemetry -will do orthostatic v/s tomorrow AM -awaits limited echocardiogram ordered for the morning -addressed importance of volume status, BP control to prevent future episode. Intermittent active chest pain, POA, initially concerning given hx of CAD status post RI with stent, however EKG unchanged, tropx3 neg. chest pain unlikely anginal pain, likely anxiety related. -Xanax prn -monitor on telemetry -EKG if chest pain develops Depression/Anxiety, present on admission. Chronic. - Continue duloxetine 60 mg twice a day - Continue alprazolam 1 mg increased to tid prn as per pt, follow up with psych on d/c Chronic pain, probable FM or opiod habituation, present on admission. Chronic. - Continue Lyrica 300 mg twice daily - Continue oxycodone regimen; do not escalate due to pain contract -monitor any drug seeking behavior, minimize opioid chronic, stable, resolved Congestive heart failure with preserved ejection fraction, present on admission. Chronic. -continue BB, ACEI for afterload reduction -hold torsemide 10 mg until pt is more stable. History of seizure disorder, present on admission. Chronic. - Continue divalproex 250 mg twice daily History of unknown psychotic disorder, present on admission. Chronic. - Continue Haldol 2 mg at night History of Crohn's disease, present on admission. Chronic. - Continue sulfasalazine 1000 mg 3 times daily with meals PTSD, present on admission. Chronic. - Continue prazosin 2 mg in the morning and 4mg at night Hypertension, present on admission. Chronic. - continue home med Obstructive sleep apnea, present on admission. Chronic. - Continue CPAP at night Anemia, present on admission. Chronic. - Continue ferrous gluconate 324 mg daily Asthma, present on admission. Chronic. - Continue Symbicort and albuterol as needed Tobacco use disorder, present on admission. Chronic. - Cessation counseled, patient uninterested at this time - Nicotine patch as needed Obesity, present on admission. Chronic. - BMI 46.6 - Patient uninterested in nutritional consult Acetaminophen as needed for pain, headache, fever. Bowel regimen as needed. Zofran for nausea. He also takes promethazine, will continue. Subcutaneous heparin on board. Patient status: likely 1-2more days, GI Prophylaxis: Proton Pump Inhibitor VTE Prophylaxis: Sub-Q Heparin (Unfractionated) VTE Mechanical Devices: Intermittant Pneumatic CD Resuscitation Status: CPR: Attempt Resuscitation Time spent 35min Margarette Farah MD Apr 20, 2017 08:57
[2017-04-20] MEDS ORDERED: Butalbital-Acet-Caffeine Tablet PO PRN (16:50)
[2017-04-20] MEDS ORDERED: Butalbital-Acet-Caffeine Tablet PO ONE (16:50)
--- NOTE | 2017-04-20 16:58 | NUR ---
Elevated BP Patient had an elevated BP of 180/135 and complained of 8/10 Headache. Notified MD and gave scheduled Percocet. MD ordered Fioricet.
--- NOTE | 2017-04-20 17:49 | NUR ---
Social Work: Initial Assessment Data: See initial assessment. Patient is a 41 year old male who was admitted on 04/19/17 for syncope per H&P. Patient's insurance is [facility] and PCP is [facility] - Jose Rocha. EMR reviewed. JESSICA met with patient to discuss discharge planning. JESSICA role explained. Patient is alert & oriented x3. Patient resides at home with two roommates. Home has 16 steps at entrance. Patient is I with ADLs and has an electric wheelchair and a cane that he uses. Patient states that he does not have a car and relies on others for transportation needs. Patient denies past or current home health services. Patient states that he has been to [facility] in the past. Patient denies having DPOA or AD and declined to receive information. Patient denies having intermediate care insurance or VA benefits. Patient states that he does not drive and relies on the bus for transportation. Upon discharge, patient will likely return home. Patient states that upon discharge, he will need Medicaid transportation if discharged over the weekend. JESSICA provided a discharge planning checklist booklet to pt and encouraged him to call with any questions. Phone number provided. SW will continue to follow. Assessment: Patient will likely discharge home with no needs. Plan: Patient will discharge home when medically stable. Transportation will need to be arranged for patient via Medicaid transport. SW will continue to follow for needs. JACEK Ruth Addendum: 04/20/17 at 1800 by LOUISE BUCHANAN SS Amended: Links added.
[2017-04-21] VITALS (9 sets, daily range): BP systolic 93–130; BP diastolic 58–78; PULSE 58–72; RESP 16–20; O2SAT 93–97
[2017-04-21] MEDS: Heparin 5,000 Unit/mL Inj SUBQ SCH ×2 (00:30→08:05)
[2017-04-21] MEDS: 0.9% Sodium Chloride 1,000 ML IV SCH (05:36)
[2017-04-21] MEDS: DULoxetine 30 mg DR Capsule PO SCH (08:03)
[2017-04-21] MEDS: oxyCODONE-Acetamin 10-325 mg Tablet PO PRN (08:03)
[2017-04-21] MEDS: MeTOProlol XL 50 mg ER24 Tablet PO SCH (08:04)
[2017-04-21] MEDS: Sulfasalzine 500 mg Tablet PO SCH ×2 (08:04→11:56)
[2017-04-21] MEDS: Pantoprazole 40 mg ER24 Tablet PO SCH (08:04)
--- NOTE | 2017-04-21 14:06 | PCM.DIMED ---
Discharge Instructions Date of Service Apr 21, 2017 Dates of Hospitalization Apr 19, 2017 at 22:36 Discharge Diagnosis Discharge Diagnosis acute dx Syncopal episode likely decreased preload in the setting of HCMP Intermittent active chest pain, non cardiac etiology chronic dx Depression/Anxiety Chronic pain, probable FM or opiod habituation Congestive heart failure with preserved ejection fraction History of seizure disorder History of unknown psychotic disorder History of Crohn's disease PTSD, Hypertension Obstructive sleep apnea Anemia, present on admission Asthma, present on admission. Tobacco use disorder Obesity Diet Discharge Diet: No restrictions, Low fat, Low Sodium Patient Instructions Patient Instructions You were hospitalized with syncopal episode likely related to dehydration in the setting of your thickened heart muscles "hypertrophic cardiomyopathy". Repeat Echocardiogram seemed unchanged from your prior study. You received enough IVF, condition improved greatly. Please follow up with your filler wiper, given your persistent thickened heart muscles, cardiac MRI was recommended Please also follow up with your primary doctor in 2 weeks Please drink enough water to prevent future episode of syncope Follow-up Provider: [facility] Follow-up with PCP in: 1 week Margarette Farah MD Apr 21, 2017 14:06
[2017-04-21] MEDS ORDERED: ALPR1TAB7 PO (14:09)
[2017-04-21] MEDS ORDERED: OXYC-466 PO (14:09)
--- NOTE | 2017-04-21 14:58 | NUR ---
Social Work: Discharge Data: EMR reviewed. Patient is on day 2 of hospitalization for syncope per H&P. Patient was discussed in morning rounds. Patient has been deemed medically stable for discharge today per MD. Patient will require transportation home under [facility]. JESSICA has contacted [employer] and requested cabulance transport. JESSICA obtained [facility] One number from patient and provided it to [employer]. JESSICA has requested wheelchair transport due to patient's baseline of electric wheelchair. JESSICA is awaiting a call back from [employer] regarding an estimated arrival time for transport. Patient has no additional needs at this time. Assessment: Patient will discharge home. Plan: Patient has been medically cleared for discharge today per MD. JESSICA has arranged transportation via [employer]. JESSICA is awaiting confirmation of pickup time. Patient has no additional needs at this time. JACEK Ruth Addendum: 04/21/17 at 1557 by LOUISE BUCHANAN SS Transportation provider was changed due to [employer] being unable to transport patient. Transportation will now be provided by [employer]. Pickup has been confirmed to be between 1630 - 1645. [employer] will provided a wheelchair for pickup. Patient has no additional needs at this time. JACEK Ruth
--- NOTE | 2017-04-21 16:00 | PCM.DC.MED ---
Discharge Summary Date of Service Apr 21, 2017 Dates of Hospitalization Date of Hospital Admission Apr 19, 2017 at 22:36 Date of Discharge: Apr 21, 2017 Providers: Admitting Physician: Diony Ocasio MD Primary Care Physician: Junito Marsh Attending Physician: Margarette Cedeno MD Diagnosis at Time of Discharge Diagnosis at Time of Discharge acute dx Syncopal episode likely decreased preload in the setting of HCMP Intermittent active chest pain, non cardiac etiology chronic dx Depression/Anxiety Chronic pain, probable FM or opiod habituation Congestive heart failure with preserved ejection fraction History of seizure disorder History of unknown psychotic disorder History of Crohn's disease PTSD, Hypertension Obstructive sleep apnea Anemia, present on admission Asthma, present on admission. Tobacco use disorder Obesity Consultations Cardiology Procedures XRay, CTs & MRIs Brain CT 04/19/2017 IMPRESSION: Normal for age. No trauma found. Dictated by: Rajendra Traore M.D. on 04/19/2017 at 20:39 Approved by: Rajendra Traore M.D. on 04/19/2017 at 20:39 Chest X-ray 04/19/2017 IMPRESSION: Reduced inspiratory volume, no acute disease. Dictated by: Rajendra Traore M.D. on 04/19/2017 at 20:38 Approved by: Rajendra Traore M.D. on 04/19/2017 at 20:38 Cardiac Echo Impression Echo 03/22/17 Interpretation Summary There is moderate concentric hypertrophy with severe apical hypertrophy with cavity obliteration. The ejection fraction is estimated to be 70-75%. Left Ventricle: The left ventricle is normal in size. There is moderate concentric hypertrophy with severe apical hypertrophy with cavity obliteration. The ejection fraction is estimated to be 70-75%. Right Ventricle: The right ventricle is grossly normal size. Atria: Borderline left atrial enlargement. The right atrium grossly appears normal in size. The interatrial septum is intact with no evidence for an atrial septal defect. Mitral Valve: The mitral valve is grossly normal. There is trace mitral regurgitation. Aortic Valve: The aortic valve is grossly normal. No aortic regurgitation is present. Tricuspid Valve: The tricuspid valve is normal. There is trace tricuspid regurgitation. The right ventricular systolic pressure is estimated at 27 mmHg assuming a right atrial pressure of 3 mm Hg. Pulmonic Valve: The pulmonic valve is not well visualized. Great Vessels: The aortic root is normal size. The dimensions of the ascending aorta are normal. The pulmonary artery is normal size. The IVC is of normal diameter and collapses greater than 50% with a sniff. This suggests a low right atrial pressure of 3 mm Hg. Pericardium/ Pleura There is no pericardial effusion. There is no pleural effusion. Brief History HPI obtained by 04/19 Michael Campoverde is a 41 -year-old male with a history of congestive heart failure with preserved ejection fraction, CAD with UT and stent placement, and hypertrophic cardiomyopathy presented to the ED via EMS from [facility] for a syncopal episode that lasted 30 minutes earlier today. He has no memory of this event, but his roommate told him that he passed out and was unresponsive for a couple minutes. He reports having a half-hour episode of chest pain that radiated to his left shoulder prior to the event. He says he has been drinking less than normal lately but otherwise denies ongoing chest pain, palpitations, shortness of breath, fever/chills, decreased nausea, vomiting, diaphoresis or orthopnea. Of note, he has had 6 hospitalizations since his UT and stenting around 2 years ago at [facility]. 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 Chen in quite some time but thinks he has an appointment sometime in April. Hospital Course Michael Campoverde is an obese 41 -year-old male with a history of congestive heart failure with preserved ejection fraction, CAD with UT and stent placement , and hypertrophic cardiomyopathy presented to the ED via EMS from [facility] for a syncopal episode that lasted 30 minutes earlier today preceded by chest pain that radiated to his left arm. He has no memory of this event. Brief hospital course pt showed positive orthostatic v/s in ED, though that syncope was most likely related to dehydration, especially given patient's sever hypertrophic cardiomyopathy. Patient was monitored on telemetry, received IVF, repeat TTE was unchanged. pt was briefly evaluated by , no further recommendation was given. pt had intermittent chest discomfort but serial trops were negative. EKG showed no ischemic chg noticed. Chest pressure was likely related to his baseline anxiety as it's controlled with Xanax well. Patient was d/schuyler in stable condition. 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 acute, active Syncopal episode, POA, likely decreased preload in the setting of HCMP. Orthostatic v/s+ in ED. s/p 1liter NS and 500cc. -will continue IVF 100cc/hr -continue telemetry -will do orthostatic v/s tomorrow AM -awaits limited echocardiogram ordered for the morning -addressed importance of volume status, BP control to prevent future episode. Intermittent active chest pain, POA, initially concerning given hx of CAD status post UT with stent, however EKG unchanged, tropx3 neg. chest pain unlikely anginal pain, likely anxiety related. -Xanax prn -monitor on telemetry -EKG if chest pain develops Depression/Anxiety, present on admission. Chronic. - Continue duloxetine 60 mg twice a day - Continue alprazolam 1 mg increased to tid prn as per pt, follow up with psych on d/c Chronic pain, probable FM or opiod habituation, present on admission. Chronic. - Continue Lyrica 300 mg twice daily - Continue oxycodone regimen; do not escalate due to pain contract -monitor any drug seeking behavior, minimize opioid chronic, stable, resolved Congestive heart failure with preserved ejection fraction, present on admission. Chronic. -continue BB, ACEI for afterload reduction -hold torsemide 10 mg until pt is more stable. History of seizure disorder, present on admission. Chronic. - Continue divalproex 250 mg twice daily History of unknown psychotic disorder, present on admission. Chronic. - Continue Haldol 2 mg at night History of Crohn's disease, present on admission. Chronic. - Continue sulfasalazine 1000 mg 3 times daily with meals PTSD, present on admission. Chronic. - Continue prazosin 2 mg in the morning and 4mg at night Hypertension, present on admission. Chronic. - continue home med Obstructive sleep apnea, present on admission. Chronic. - Continue CPAP at night Anemia, present on admission. Chronic. - Continue ferrous gluconate 324 mg daily Asthma, present on admission. Chronic. - Continue Symbicort and albuterol as needed Tobacco use disorder, present on admission. Chronic. - Cessation counseled, patient uninterested at this time - Nicotine patch as needed Obesity, present on admission. Chronic. - BMI 46.6 - Patient uninterested in nutritional consult Acetaminophen as needed for pain, headache, fever. Bowel regimen as needed. Zofran for nausea. He also takes promethazine, will continue. Subcutaneous heparin on board. Patient status: likely 1-2more days, Exam Vital Signs (Last) Date Time Temp Pulse Resp B/P Pulse Ox O2 Delivery O2 Flow Rate FiO2 04/21/17 12:31 36.9 65 20 109/64 93 Room Air Exam pt was examined on the day of d/c Test 04/19/17 20:33 04/19/17 20:34 04/19/17 20:44 04/20/17 05:17 Prothrombin Time 10.3sec (8.1-12.5) Prothromb Time International Ratio 0.96ratio Magnesium Level 1.9mg/dL (1.6-2.6) Pro-B-Type Natriuretic Peptide 412.6pg/mL (0-86) Lactic Acid Level 1.8mmol/L (0.4-2.0) Hold Savage Top Tube Received (Received) Urine Color Yellow (YELLOW) Urine Appearance Clear (CLEAR,HAZY) Urine pH 6.5 (5.0-8.0) Urine Specific [place] 1.005 (1.003-1.035) Urine Protein Negativemg/dL (NEG,TRACE) Urine Glucose (UA) Negativemg/dL (NEGATIVE) Urine Ketones Negativemg/dL (NEGATIVE) Urine Occult Blood Negative (NEGATIVE) Urine Nitrite Negative (NEGATIVE) Urine Bilirubin Negative (NEGATIVE) Urine Urobilinogen Normalmg/dL (NORMAL) Urine Leukocyte Esterase Negative (NEGATIVE) Urine RBC 0-2/hpf (0-2) Urine WBC 0-5/hpf (0-5) Urine Epithelial Cells Occasional/hpf (NONE-MOD) Urine Crystals None seen (NONE SEEN) Urine Bacteria Few/hpf (NONE-FEW) Urine Hyaline Casts None/lpf (NONE) Urine Granular Casts None seen (NONE SEEN) Urine Waxy Casts None seen (NONE SEEN) Urine Red Blood Cell Casts None seen (NONE SEEN) Urine White Blood Cell Casts None seen (NONE SEEN) Urine Mucus None seen (None Seen) Urine Trichomonas None seen (NONE SEEN) Urine Yeast None (NONE SEEN) Urinalysis Comment None Urine Culture Reflexed Not indicated White Blood Count 4.3th/mm3 (3.8-10.1) Red Blood Count 3.73mil/mm3 (4.40-5.80) Hemoglobin 11.9g/dL (13.8-17.2) Hematocrit 36.1% (41.0-50.0) Mean Corpuscular Volume 96.8fL (81-100) Mean Corpuscular Hemoglobin 31.9pg (27.0-35.0) Mean Corpuscular Hemoglobin Concent 33.0% (32.0-37.0) Red Cell Distribution Width 14.0% (12.3-15.4) Platelet Count 152bil/L (150-400) Neutrophils (%) (Auto) 51.7% (40-74) Lymphocytes (%) (Auto) 38.6% (14-46) Monocytes (%) (Auto) 8.8% (4-12) Eosinophils (%) (Auto) 0.2% (0-5) Basophils (%) (Auto) 0.5% (0-3) Sodium Level 147mEq/L (134-144) Potassium Level 3.8mEq/L (3.5-5.2) Chloride Level 108mEq/L (97-108) Carbon Dioxide Level 23mmol/L (18-29) Blood Urea Nitrogen 8mg/dL (6-24) Creatinine 0.84mg/dL (0.76-1.27) Estimat Glomerular Filtration Rate 106mL/min (>59) Glucose Level 98mg/dL (60-99) Calcium Level 8.6mg/dL (8.5-10.1) Total Bilirubin 0.2mg/dL (0.0-1.2) Aspartate Amino Transf (AST/SGOT) 6U/L (0-50) Alanine Aminotransferase (ALT/SGPT) 6U/L (0-44) Alkaline Phosphatase 67U/L (25-150) Troponin T 0.010ug/L (0.0-0.011) Total Protein 5.8g/dL (6.4-8.4) Albumin 4.1g/dL (3.4-5.0) Discharge Medications Discharge Medications Atorvastatin Calcium (Atorvastatin Calcium) 40 Mg Tablet 40 MG PO HS (Reported) Divalproex (Divalproex) 250 Mg Tablet.dr 250 MG PO BID (Reported) Duloxetine (Duloxetine) 60 Mg Capsule.dr 60 MG PO BID (Reported) Ferrous Gluconate (Ferrous Gluconate) 324 Mg Tab 324 MG PO QAM (Reported) Losartan Potassium (Losartan Potassium) 25 Mg Tablet 25 MG PO QAM (Reported) Metoprolol Succinate ER (Metoprolol Succinate ER) 50 Mg Tab.er.24h 50 MG PO QAM (Reported) [place]-3/Dha/Epa/Fish Oil (Fish Oil 1,000 mg Softgel) 1 Each Capsule 1 EACH PO QAM (Reported) Omeprazole (Omeprazole) 40 Mg Capsule.dr 40 MG PO BIDAC (Reported) Prazosin (Prazosin) 2 Mg Capsule 2 MG PO QAM (Reported) PRAZOSIN 2 MG IN AM AND 4 MG AT HS Prazosin (Prazosin) 2 Mg Capsule 4 MG PO HS (Reported) PRAZOSIN 2 MG IN AM AND 4 MG AT HS Pregabalin (Lyrica) 300 Mg Capsule 300 MG PO BID (Reported) Sulfasalazine (Sulfasalazine) 500 Mg Tablet 1,000 MG PO TIDPC (Reported) Tizanidine (Tizanidine) 4 Mg Tablet 8 MG PO TID (Reported) Torsemide (Torsemide) 20 Mg Tablet 10 MG PO QAM (Reported) As needed Albuterol Sulfate (Ventolin HFA Inhaler) 200 Puff/18 Gm Inhaler 2 PUFFS INHALATION Q4H PRN PRN For Shortness of Breath (Reported) Alprazolam (Alprazolam) 1 Mg Tablet 1 MG PO BID PRN PRN For Anxiety or Agitation Prescribed by: MARGARETTE CEDENO MD Epinephrine (Epipen 2-Jonah) 0.3 Mg/0.3 Ml Auto.injct 0.3 MG IM ASDIRECTED PRN PRN For Anaphyllaxis (Reported) Lidocaine HCl (Lidocaine) 142 Appl/37.5 Gm Oint 1 APPLIC TOPICAL PRN Neuropathy (Reported) TO LEFT THIGH, NECK, AND/OR LOWER BACK Loperamide (Loperamide) 2 Mg Capsule 2 MG PO Q6H PRN PRN For Diarrhea or Loose Stool (Reported) Meclizine (Bonine) 25 Mg Tab.chew 25 MG PO Q8H PRN PRN For Dizziness (Reported) Ondansetron (Ondansetron) 4 Mg Tablet 4-8 MG PO Q8H PRN PRN For Nausea (Reported ) Promethazine (Promethazine) 25 Mg Tablet 50 MG PO TID PRN PRN For Nausea ( Reported) Rizatriptan ODT (Rizatriptan) 10 Mg Tab.rapdis 10 MG PO ASDIRECTED PRN PRN For Headache (Reported) TAKE 1 TABLET AT ONSET OF HEADACHE. MAY REPEAT IN 2 HRS IF NEEDED. oxyCODONE-Acetaminophen 10-325 mg (oxyCODONE-Acetaminophen 10-325 mg) 1 Each Tablet 1 TABLET PO TID PRN PRN For Pain Prescribed by: MARGARETTE CEDENO MD Followup Plan Disposition: home Discharge Diet: No restrictions, Low fat, Low Sodium Patient Instructions You were hospitalized with syncopal episode likely related to dehydration in the setting of your thickened heart muscles "hypertrophic cardiomyopathy". Repeat Echocardiogram seemed unchanged from your prior study. You received enough IVF, condition improved greatly. Please follow up with your school traffic supervisor, given your persistent thickened heart muscles, cardiac MRI was recommended Please also follow up with your primary doctor in 2 weeks Please drink enough water to prevent future episode of syncope Follow-up Provider: [facility] Follow-up with PCP in: 1 week Time spent 65min Margarette Cedeno MD Apr 21, 2017 16:00
--- NOTE | 2017-04-21 16:55 | NUR ---
Discharge Patient discharge to home with all belongings at 1652. Explained to patient when next medications are due and discharge instructions. Patient verbalized understanding. Dc'd IV intact. Dc'd telemetry. Vitals stable. Patient left floor via wheelchair accompanied by cabulance lead driver with no signs of distress.
== END 2017-04-21 16:58 | disposition home or self-care (01) ==
LOC: EDBD 18:58 → SED 18:58 → INTOOBSV 22:36 → MPC 22:36
PROVIDERS: ADMIT Hospitalist; ATTEND Hospitalist
DX: R55 Syncope and collapse (principal); R07.89 Other chest pain; I25.10 Atherosclerotic heart disease of native coronary artery without angina pectoris; I42.2 Other hypertrophic cardiomyopathy; I50.32 Chronic diastolic (congestive) heart failure; E66.9 Obesity, unspecified; Z68.42 Body mass index [BMI] 45.0-49.9, adult; F43.12 Post-traumatic stress disorder, chronic; F41.8 Other specified anxiety disorders; K50.90 Crohn's disease, unspecified, without complications; G89.29 Other chronic pain; G47.33 Obstructive sleep apnea (adult) (pediatric); G40.802 Other epilepsy, not intractable, without status epilepticus; D64.9 Anemia, unspecified; F17.200 Nicotine dependence, unspecified, uncomplicated; I10 Essential (primary) hypertension; J45.909 Unspecified asthma, uncomplicated; Z95.5 Presence of coronary angioplasty implant and graft; I25.2 Old myocardial infarction
CPT/HCPCS: 36415; 70450; 71010; 80053; 81000; 82075; 83605; 83735; 83880; 84484; 85025; 85610; 93005; 96361; 96372; 96374; 99285; C8924; G0378; J1644; J2405; J7030; J7040; Q9957

== ENCOUNTER 2017-04-30 12:19 | Observation (INO) | payer OTHER ==
[~2017-04-30] VITALS: Ht 172.7 cm; Wt 139.7 kg
[2017-04-30] VITALS (8 sets, daily range): BP systolic 88–140; BP diastolic 18–91; PULSE 53–64; RESP 13–20; O2SAT 92–99
[~2017-04-30 12:19] MED LIST changes: -DOXA4TAB2 PO; -HALO1TAB PO; +OMEG-38 PO; +OXYC-466 PO; -SYMINH INHALATION
--- NOTE | 2017-04-30 12:27 | ED.REPORT ---
HPI-General Illness Date of Service Apr 30, 2017 ED Provider: Nick Esteban Patient is a 41 year old male with a hx of cardiomyopathy, HTN, hyperlipidemia, and CHF who presents to the ED via EMS complaining of chest pain onset 1045 this morning. His pain is localized to left upper chest with radiation into his L shoulder and L jaw, described as a pressure, improves with inspiration, and rated a 5/10 in severity. He was given nitro en route with minimal improvement. Associated symptoms include malaise, fatigue, nausea, and SOB. He denies numbness, tingling, focal weakness, fevers, chills, vomiting, sore throat, rash , itching, hematuria, hematochezia, diarrhea, lower extremity swelling, or any other symptoms. He was recently admitted from April 19- for syncope. Nursing Notes Stated Complaint: CHEST PAIN Chief Complaint: Chest Pain Nursing Notes Reviewed: Yes Allergies: Coded Allergies: tramadol (Verified Allergy, Intermediate, 03/22/17) Squash (Verified Allergy, Unknown, Anaphylaxis, 04/19/17) cyclobenzaprine HCl (Verified Allergy, Unknown, 03/22/17) NSAIDS (Non-Steroidal Anti-Inflamma (Verified Adverse Reaction, Intermediate, GERD, 03/22/17) amitriptyline (Verified Adverse Reaction, Intermediate, "DRUNKEN FEELING" , 04/19/17) codeine (Verified Adverse Reaction, Intermediate, DIFFICULTY SWALLOWING, ) telmisartan (Verified Adverse Reaction, Intermediate, "DRUNKEN FEELING", ) Uncoded Allergies: GHOST PEPPER (Allergy, Severe, Anaphylaxis, 04/19/17) ZUCCHINI (Allergy, Severe, ANAPHYLAXIS, 04/19/17) Scheduled Atorvastatin Calcium (Atorvastatin Calcium) 40 Mg Tablet 40 MG PO HS Divalproex (Divalproex) 250 Mg Tablet.dr 250 MG PO BID Duloxetine (Duloxetine) 60 Mg Capsule.dr 60 MG PO BID Ferrous Gluconate (Ferrous Gluconate) 324 Mg Tab 324 MG PO QAM Losartan Potassium (Losartan Potassium) 25 Mg Tablet 25 MG PO QAM Metoprolol Succinate ER (Metoprolol Succinate ER) 50 Mg Tab.er.24h 50 MG PO QAM [employer]-3/Dha/Epa/Fish Oil (Fish Oil 1,000 mg Softgel) 1 Each Capsule 1 EACH PO QAM Omeprazole (Omeprazole) 40 Mg Capsule.dr 40 MG PO BIDAC Prazosin (Prazosin) 2 Mg Capsule 2 MG PO QAM PRAZOSIN 2 MG IN AM AND 4 MG AT HS Prazosin (Prazosin) 2 Mg Capsule 4 MG PO HS PRAZOSIN 2 MG IN AM AND 4 MG AT HS Pregabalin (Lyrica) 300 Mg Capsule 300 MG PO BID Sulfasalazine (Sulfasalazine) 500 Mg Tablet 1,500 MG PO BIDWM Tizanidine (Tizanidine) 4 Mg Tablet 8 MG PO TID Torsemide (Torsemide) 20 Mg Tablet 10 MG PO QAM Scheduled PRN Albuterol Sulfate (Ventolin HFA Inhaler) 200 Puff/18 Gm Inhaler 2 PUFFS INHALATION Q4H PRN PRN For Shortness of Breath Alprazolam (Alprazolam) 1 Mg Tablet 1 MG PO DAILY PRN PRN For Anxiety Alprazolam (Alprazolam) 1 Mg Tablet 1-2 MG PO HS PRN PRN Insomnia Epinephrine (Epipen 2-Jonah) 0.3 Mg/0.3 Ml Auto.injct 0.3 MG IM ASDIRECTED PRN PRN For Anaphyllaxis Lidocaine HCl (Lidocaine) 142 Appl/37.5 Gm Oint 1 APPLIC TOPICAL PRN Neuropathy TO LEFT THIGH, NECK, AND/OR LOWER BACK Loperamide (Loperamide) 2 Mg Capsule 2 MG PO Q6H PRN PRN For Diarrhea or Loose Stool Meclizine (Bonine) 25 Mg Tab.chew 25 MG PO Q8H PRN PRN For Dizziness Ondansetron (Ondansetron) 4 Mg Tablet 4-8 MG PO Q8H PRN PRN For Nausea Promethazine (Promethazine) 25 Mg Tablet 50 MG PO TID PRN PRN For Nausea Rizatriptan ODT (Rizatriptan) 10 Mg Tab.rapdis 10 MG PO ASDIRECTED PRN PRN For Headache TAKE 1 TABLET AT ONSET OF HEADACHE. MAY REPEAT IN 2 HRS IF NEEDED. oxyCODONE-Acetaminophen 10-325 mg (oxyCODONE-Acetaminophen 10-325 mg) 1 Each Tablet 1 TABLET PO TID PRN PRN For Pain General Time Seen by MD: 12:28 Chief Complaint Chest pain Hx Obtained From: Patient Arrived By: Ambulance Sudden in Onset?: Yes Onset Occurred: 1 - 4 hours ago Symptom Duration: Since onset Location: : Chest Quality: Pressure Radiation: : Jaw: Shoulder Severity: Current: Pain level 5 out of 10 Severity: Maximum: Pain level 6 out of 10 Associated with: Reports: Shortness of breath Additional Notes: Fatigue Pertinent Negative: Pt denies other symptoms Relieved by: Rest (and inspiration ) Context Related History: Reports Asthma Recent Healthcare: Recent doctor visit, Recent hospitalization Past Medical History Past Medical History Notes: Difficult intubation [employer] Dr. Mendoza Past Medical History Depression/Anxiety. PTSD. [place] Pulmonary artery disease Hypertension High cholesterol Possible dissociative disorder. Suspected bipolar disorder. Malignant and borderline personality disorder. Suspected possible Crohn's disease. Migraine headaches. Self-reported history of fibromyalgia Chronic pain, and on pain plan with PCP Dr. Armstrong, takes Vicodin ES colitis diverticulitis GI bleed Kidney stones arthritis seizures anemia hx of stent with unknown location. in records but pt denies Reports: Asthma, Congestive heart failure, Mental illness Reports: Morbid Obesity Past Surgical History exploratory surgery s/p pancreatitis Status post steroid injection for back pain Status post negative cardiac catheterization December 11, 2013. Reports: Appendectomy Family History [place] (father and aunt) before 50 Reports: Diabetes mellitus Smoking History Current Every Day Smoker Social History Previous Suicide attempt Alcohol Use: "Social" Other Social History: Local resident Ambulatory Status Independent Review of Systems -tingling Full Review of Systems Constitutional: Reports: Fatigue, Malaise, Denies: Chills, Fever Ears / Nose / Throat: Denies: Sore throat Respiratory: Reports: Shortness of breath Cardiovascular: Reports: Chest pain, Denies: Edema GI: Reports: Nausea, Denies: Diarrhea, Hematochezia, Vomiting Male: Denies Hematuria Musculoskeletal: Reports: Extremity pain, Neck pain (Jaw pain ), Denies: Extremity swelling Skin: Denies Rash Allergy / Immune: Denies: Itching Neurologic: Denies: Focal weakness, Numbness Complete sys rev & neg: except as marked. Physical Exam Nursing note and vitals reviewed. Constitutional: Not diaphoretic.Morbidly obese. Mild distress. Pale Head: Normocephalic and atraumatic. Mouth/Throat: Oropharynx is clear and moist. No oropharyngeal exudate. Eyes: EOM are normal. Pupils are equal, round, and reactive to light. Neck: Supple, no tracheal deviation. Cardiovascular: Normal rate, regular rhythm. Equal and intact distal pulses throughout. Pulmonary/Chest: Effort normal and breath sounds normal. No respiratory distress. Lungs clear. Abdominal: Soft. No distension. There is no tenderness, rebound, or guarding. Musculoskeletal: Range of motion grossly intact, moving all extremities. No edema or tenderness appreciated. Neurological: AOx3. Grossly nonfocal exam. Strength and sensation intact and equal to bilateral upper and lower extremities. Skin: Warm and dry, no rashes or pallor appreciated. Psychiatric: Appropriate mood and affect. Behavior appears normal. Vital Signs Vital Signs Date Time Temp Pulse Resp B/P Pulse Ox O2 Delivery O2 Flow Rate FiO2 04/30/17 16:20 36.4 56 13 106/44 99 Nasal Cannula 2 04/30/17 13:14 55 15 111/53 98 Nasal Cannula 2 04/30/17 12:40 59 14 93/49 98 Nasal Cannula 2 04/30/17 12:19 36.8 64 15 88/18 92 Room Air Interpretation & Diagnostics Lab Results Interpretation Result Diagram: 04/30/17 1305 04/30/17 1305 Test 04/30/17 12:10 04/30/17 13:05 04/30/17 15:40 Hold Savage Top Tube Received (Received) White Blood Count 5.5th/mm3 (3.8-10.1) Red Blood Count 3.51mil/mm3 (4.40-5.80) Hemoglobin 11.4g/dL (13.8-17.2) Hematocrit 33.0% (41.0-50.0) Mean Corpuscular Volume 94.0fL (81-100) Mean Corpuscular Hemoglobin 32.5pg (27.0-35.0) Mean Corpuscular Hemoglobin Concent 34.5% (32.0-37.0) Red Cell Distribution Width 14.2% (12.3-15.4) Platelet Count 170bil/L (150-400) Neutrophils (%) (Auto) 64.0% (40-74) Lymphocytes (%) (Auto) 26.2% (14-46) Monocytes (%) (Auto) 9.0% (4-12) Eosinophils (%) (Auto) 0.2% (0-5) Basophils (%) (Auto) 0.4% (0-3) Sodium Level 141mEq/L (134-144) Potassium Level 3.7mEq/L (3.5-5.2) Chloride Level 104mEq/L (97-108) Carbon Dioxide Level 25mmol/L (18-29) Blood Urea Nitrogen 9mg/dL (6-24) Creatinine 0.92mg/dL (0.76-1.27) Estimat Glomerular Filtration Rate 95mL/min (>59) Glucose Level 116mg/dL (60-99) Calcium Level 8.9mg/dL (8.5-10.1) Magnesium Level 1.9mg/dL (1.6-2.6) Total Bilirubin 0.3mg/dL (0.0-1.2) Aspartate Amino Transf (AST/SGOT) 7U/L (0-50) Alanine Aminotransferase (ALT/SGPT) 5U/L (0-44) Alkaline Phosphatase 61U/L (25-150) Troponin T < 0.010ug/L (0.0-0.011) Pro-B-Type Natriuretic Peptide 1572pg/mL (0-86) Total Protein 5.7g/dL (6.4-8.4) Albumin 3.7g/dL (3.4-5.0) Hold Urine Received (Received) ECG Interpretation ECG Interpretation: T wave inversions in lateral leads sinus rate 59 likely LVH with secondary repolarization abnormality T wave abnormalities more pronounced since previous EKG Time: 12:28 Interpreted by: ED physician X-Ray Chest Interpretation Chest Xray Interpretation: IMPRESSION: 1. No acute cardiopulmonary disease. Dictated by: Jose Ambriz M.D. on 04/30/2017 at 13:51 Approved by: Jose Ambriz M.D. on 04/30/2017 at 13:52 View: Portable, 1 view Interpretation / Wet Read by: Interpret - Radiologist CT Chest Interpretation IMPRESSION: 1. No evidence of pulmonary embolism. Dictated by: Jose Ambriz M.D. on 04/30/2017 at 14:56 Approved by: Jose Ambriz M.D. on 04/30/2017 at 14:58 Study type: CT pulm angiogram Interpretation / Wet Read by: Interpret - Radiologist Re-Eval/Medical Decision Med Decision/Clinical Course In summary, 41-year-old male with a history of hypertrophic cardiomyopathy and coronary artery disease presenting to the ED for evaluation of chest pain radiating up to his left shoulder and jaw since earlier today. Differential includes ACS, PE, PTX, aortic dissection, myocarditis/pericarditis, abdominal etiology such as cholecystitis, MSK pain. Pain has been constant since onset; troponin negative. HEART score of 5. EKG demonstrates sinus rhythm with no acute ischemic changes. CT angiogram negative for PE. Pain not described as tearing through to the back, CXR w/ no evidence of widened mediastinum, normal neuro exam, and equal pulses to bilateral upper and lower extremities; aortic dissection seems very unlikely, and there is no evidence of this on CT scan. Neither clinical presentation, exam, or EKG seem c/w pericarditis or myocarditis. No abdominal pain or tenderness. Rest of labs reviewed, notable for a negative troponin, BNP of 1572 from 4122 weeks ago, CMP otherwise grossly within normal limits. Hemoglobin of 11.4, stable from previous. Given catheterization with clean vessels several years ago, cardiology feels that the likelihood of this 41-year-old patient having acute coronary syndrome is relatively low. Suspect that his symptoms are caused by his hypertrophic cardiomyopathy. Patient given IV fluids here in the ED. EKG does demonstrate sinus rhythm with likely LVH with some secondary repolarization abnormality; T- wave inversions are more pronounced in V2 and V3 than previously. Given the above, plan admission for further management and evaluation. Patient agreeable to plan, no further questions. Time of Eval: 15:10 Re-Evaluation/Progress Note: Discussed plan for admission. Patient understands and agrees with plan. All questions addressed at this time. Consultation #1: Referral / Consult Name: Carol Sommers MD Consulted With: Cardiology Call Returned at: 15:11 Note: Discussed pt's case. Agrees to consult. Fluids and echo in morning. Beta blockers as needed. Consultation #2: Referral / Consult Name: Blu Tejada MD Consulted With: Hospitalist Call Returned at: 15:55 Corporate Development Officer: Will see patient, Agrees with eval, Agrees with plan, Accepts admit Note: Discussed pt's case. Accepts admit. Counseled Regarding: Diagnosis, Lab results, Need for admission Discharge & Departure Primary Impression: Chest pain Chest pain type: unspecified Qualified Code: R07.9 - Chest pain, unspecified Additional Impression: Hypertrophic cardiomyopathy Disposition: ADMITTED TO HOSPITAL Discharge Condition All VS Reviewed: Yes Condition: Stable Referrals: JUNITO OJEDA (PCP) Gustavo Attestation Portions of this note were transcribed by Roman Cobb. I, Dr. Esteban personally performed the history, physical exam and medical decision-making; I reviewed and confirmed the accuracy of the information in the transcribed note. Signed by: Gustavo Powers, 04/30/17 copies to: JUNITO OJEDA William B MD Apr 30, 2017 12:27 ROMAN COBB Apr 30, 2017 12:37
[2017-04-30 13:44] LABS: BASOPHILS % (AUTO) 0.4 % (0-3); EOSINOPHILS % (AUTO) 0.2 % (0-5); Mean Corpuscular Hemoglobin 32.5 pg (27.0-35.0); Platelet Count 170 bil/L (150-400)
--- NOTE | 2017-04-30 13:53 | DRSVH ---
PROCEDURE: X-RAY CHEST ONE VIEW, PORTABLE ([id number]) INDICATIONS: chest pain TECHNIQUE: One view of the chest was acquired. COMPARISON: [facility], CR, XR CHEST 1VW (PORTABLE), 04/19/2017, 20:12. FINDINGS: Surgical changes and devices: None. Lungs and pleura: No pleural effusions or pneumothorax. Lungs are clear. Mediastinum: Mediastinal contours appear normal. Heart size is normal. Bones and chest wall: No suspicious bony lesions. Overlying soft tissues appear unremarkable. IMPRESSION: 1. No acute cardiopulmonary disease. Dictated by: Jose Ambriz M.D. on 04/30/2017 at 13:51 Approved by: Jose Ambriz M.D. on 04/30/2017 at 13:52
[2017-04-30 13:57] LABS: Magnesium 1.9 mg/dL (1.6-2.6); TROPONIN T < 0.010 ug/L (0.0-0.011)
--- NOTE | 2017-04-30 15:00 | DRSVH ---
PROCEDURE: CT ANGIO CHEST PULMONARY EMBOLISM ([id number]) INDICATIONS: chest pain, dyspnea, hypotension TECHNIQUE: After the administration of intravenous contrast, 2 mm thick sections acquired from the pulmonary api dominick to the posterior costophrenic angles. 3-dimensional maximum intensity projection (MIP) coronal a nd sagittal reformats were then acquired through the thorax. For radiation dose reduction, the follo wing was used: automated exposure control, adjustment of mA and/or kV according to patient size. COMPARISON: [facility], CT, CT ANGIO CHEST ABD, 03/22/2017, 10:08. FINDINGS: Image quality: Excellent. Pulmonary arteries: Pulmonary arteries are normal in size, and demonstrate no intraluminal filling d efects to suggest central pulmonary embolism. Lungs and pleura: There is mild dependent atelectasis in the lungs. No focal consolidation. No pleu ral effusions or pneumothorax. Central and peripheral airways are patent. Mediastinum: Heart size is normal, without pericardial effusion. No mediastinal or hilar adenopathy . Thoracic aorta is normal in caliber and enhancement. Esophagus is normal in caliber, without hiat al hernia. Bones and chest wall: No suspicious bony lesions. Ribs and thoracic spine appear intact throughout. No axillary or supraclavicular adenopathy. Abdomen: Visualized upper abdominal solid organs appear normal in the early arterial phase of enhanc ement. IMPRESSION: 1. No evidence of pulmonary embolism. Dictated by: Jose Ambriz M.D. on 04/30/2017 at 14:56 Approved by: Jose Ambriz M.D. on 04/30/2017 at 14:58
[2017-04-30] MEDS ORDERED: ALPR1TAB7 PO ×2 (16:06→16:11)
[2017-04-30] MEDS ORDERED: Ondansetron 2 mg/mL 2 mL Inj IVPUSH PRN (16:55)
[2017-04-30] MEDS ORDERED: Polyethylene Glycol (PEG) 17 Gm Powder PO PRN (16:55)
[2017-04-30] MEDS ORDERED: Alum-Mag Hydrox-Simeth 30 mL Suspension PO PRN (16:55)
--- NOTE | 2017-04-30 17:18 | PCM.HPMED ---
Subjective Date of Service Apr 30, 2017 Primary Provider: Admitting Physician: Primary Care Physician: Junito Marsh Attending Physician: Admit Status: From the Emergency Department, Admit to Blue Team Chief Complaint: chest pain/4 hrs History of Present Illness: 41-year-old gentleman with past medical history of hypertrophic cardiomyopathy, HTN, hyperlipidemia, morbid obesity and diastolic CHF presented with chest pain of 4 hours. Patient states he started to have sudden onset left-sided chest pain,onset at rest ,6/10, constant,dull aching at 1030 am today. Patient has a history of multiple ED visits for chest pain was unrevealing workup except hypertrophic cardiomyopathy.last cardiac cath 12/11/13 no significant CAD.Last echo 03/22/17 showed moderate concentric hypertrophy with severe apical hypertrophy with cavity obliteration.EF 70-75%. Patient states he has chest pain 1-2 times a week for the last few months. Today's chest pain is slightly more worse and accompanied by diaphoresis which prompted ED visit. He also states his fibromyalgia pain is " acting up" . He states he had slight worsening of his baseline dyspnea. Patient uses a walker to walk in the house, electric wheelchair to move around neighbourhood and longer distances ED course: Initial BP 88/18,hb11.4,BNP 1572, troponin negative, EKG SR LVH with repolarization abnormalities.CTA chest negative for PE cardiology Dr Sommers consulted by ED and recommended IV fluids ,BB and limited echo . BP and Symptoms improved with IV fluid. Review of Systems: Comprehensive review of systems performed, pertinent positives and negatives included in history of present illness Allergies Coded Allergies: tramadol (Verified Allergy, Intermediate, 03/22/17) Squash (Verified Allergy, Unknown, Anaphylaxis, 04/19/17) cyclobenzaprine HCl (Verified Allergy, Unknown, 03/22/17) NSAIDS (Non-Steroidal Anti-Inflamma (Verified Adverse Reaction, Intermediate, GERD, 03/22/17) amitriptyline (Verified Adverse Reaction, Intermediate, "DRUNKEN FEELING" , 04/19/17) codeine (Verified Adverse Reaction, Intermediate, DIFFICULTY SWALLOWING, ) telmisartan (Verified Adverse Reaction, Intermediate, "DRUNKEN FEELING", ) Uncoded Allergies: GHOST PEPPER (Allergy, Severe, Anaphylaxis, 04/19/17) ZUCCHINI (Allergy, Severe, ANAPHYLAXIS, 04/19/17) Home Medications Atorvastatin Calcium (Atorvastatin Calcium) 40 Mg Tablet 40 MG PO HS Divalproex (Divalproex) 250 Mg Tablet.dr 250 MG PO BID Duloxetine (Duloxetine) 60 Mg Capsule.dr 60 MG PO BID Ferrous Gluconate (Ferrous Gluconate) 324 Mg Tab 324 MG PO QAM Losartan Potassium (Losartan Potassium) 25 Mg Tablet 25 MG PO QAM Metoprolol Succinate ER (Metoprolol Succinate ER) 50 Mg Tab.er.24h 50 MG PO QAM [employer]-3/Dha/Epa/Fish Oil (Fish Oil 1,000 mg Softgel) 1 Each Capsule 1 EACH PO QAM Omeprazole (Omeprazole) 40 Mg Capsule.dr 40 MG PO BIDAC Prazosin (Prazosin) 2 Mg Capsule 2 MG PO QAM PRAZOSIN 2 MG IN AM AND 4 MG AT HS Prazosin (Prazosin) 2 Mg Capsule 4 MG PO HS PRAZOSIN 2 MG IN AM AND 4 MG AT HS Pregabalin (Lyrica) 300 Mg Capsule 300 MG PO BID Sulfasalazine (Sulfasalazine) 500 Mg Tablet 1,000 MG PO TIDPC Tizanidine (Tizanidine) 4 Mg Tablet 8 MG PO TID Torsemide (Torsemide) 20 Mg Tablet 10 MG PO QAM Scheduled PRN Albuterol Sulfate (Ventolin HFA Inhaler) 200 Puff/18 Gm Inhaler 2 PUFFS INHALATION Q4H PRN PRN For Shortness of Breath Alprazolam (Alprazolam) 1 Mg Tablet 1 MG PO TID PRN PRN For Anxiety or Agitation Epinephrine (Epipen 2-Jonah) 0.3 Mg/0.3 Ml Auto.injct 0.3 MG IM ASDIRECTED PRN PRN For Anaphyllaxis Lidocaine HCl (Lidocaine) 142 Appl/37.5 Gm Oint 1 APPLIC TOPICAL PRN Neuropathy TO LEFT THIGH, NECK, AND/OR LOWER BACK Loperamide (Loperamide) 2 Mg Capsule 2 MG PO Q6H PRN PRN For Diarrhea or Loose Stool Meclizine (Bonine) 25 Mg Tab.chew 25 MG PO Q8H PRN PRN For Dizziness Ondansetron (Ondansetron) 4 Mg Tablet 4-8 MG PO Q8H PRN PRN For Nausea Promethazine (Promethazine) 25 Mg Tablet 50 MG PO TID PRN PRN For Nausea Rizatriptan ODT (Rizatriptan) 10 Mg Tab.rapdis 10 MG PO ASDIRECTED PRN PRN For Headache TAKE 1 TABLET AT ONSET OF HEADACHE. MAY REPEAT IN 2 HRS IF NEEDED. oxyCODONE-Acetaminophen 10-325 mg (oxyCODONE-Acetaminophen 10-325 mg) 1 Each Tablet 1 TABLET PO TID PRN PRN For Pain PMH per chart and verified from patient Frequent emergency room visits for multiple pain complaints Depression/Anxiety. Morbid obesity PTSD. Pulmonary artery disease Hypertension High cholesterol Possible dissociative disorder. Suspected bipolar disorder. Malignant and borderline personality disorder. Suspected Crohn's disease. Migraine headaches. Self-reported history of Fibromyalgia Chronic pain, and on pain plan with PCP Dr. Armstrong, takes Vicodin ES Asthma Suspected diastolic Congestive heart failure Surgical History per chart and verified from patient Exploratory surgery s/p pancreatitis Steroid Injections for Back Pain Status post negative cardiac catheterization December 11, 2013. Appendectomy Family History per chart and verified from patient Diabetes mellitus in father and aunt Father with coronary artery disease. Mother with hypertension. Social History Hx Alcohol Use: Yes ("very rarely") Hx Substance Use: No Hx Tobacco Use: Yes Smoking Status: Current Every Day Smoker Exam Vital Signs Vital Sign - Last Date Time Temp Pulse Resp B/P Pulse Ox O2 Delivery O2 Flow Rate FiO2 04/30/17 16:20 36.4 56 13 106/44 99 Nasal Cannula 2 Exam Gen. Morbidly obese patient is lying comfortably in hospital bed HEENT: Head is normocephalic atraumatic, Pupils equal and reactive, extraocular movements intact, Lungs clear to auscultation bilaterally Heart regular rate and rhythm without murmurs gallops or rubs Abdomen soft nontender without hepatosplenomegaly Extremities pulses are present dorsalis pedis posterior tibialis and radial. Skin is warm and dry there are no rashes, Psych alert and oriented to person place and time Neuro cranial nerves II through XII are grossly intact Lymph: There is no lymphadenopathy appreciated in the cervical supra infraclavicular regions : no soriano Lab and Diagnostics Result Diagram: 04/30/17 1305 04/30/17 1305 X-Rays, CTs and MRIs PROCEDURE: CT ANGIO CHEST PULMONARY EMBOLISM ([id number]) INDICATIONS: chest pain, dyspnea, hypotension IMPRESSION: 1. No evidence of pulmonary embolism. Dictated by: Jose Ambriz M.D. on 04/30/2017 at 14:56 12-lead ECG SR LVH with repolarization change Cardiac Echo Impressions ECHO 03/22/17 Interpretation Summary There is moderate concentric hypertrophy with severe apical hypertrophy with cavity obliteration. The ejection fraction is estimated to be 70-75%. Assessment & Plan 41-year-old gentleman with past medical history of hypertrophic cardiomyopathy, HTN, hyperlipidemia, history of catalepsy, morbid obesity and diastolic CHF presented with chest pain of 4 hours. # chest pain,acute on chronic,poa -Due to hypertrophic cardiomyopathy -NS at 75 ml/h, initial BP low and received 1 L in the emergency room - continue home metoprolol 50mg /d -Hold torsemide - limited echo -will discuss with cardio if he needs stress test ,will c/w BB for now -Continue alprazolam for anxiety which may have contributed to pain #Depression/Anxiety, present on admission. Chronic. - Continue duloxetine 60 mg twice a day - Continue alprazolam 1 mg increased to tid prn as per pt, follow up with psych on d/c #Chronic pain, probable FM or opiod habituation, present on admission. Chronic. - Continue Lyrica 300 mg twice daily - Continue oxycodone regimen; do not escalate due to pain contract -monitor any drug seeking behavior, minimize opioid chronic, stable, resolved #Chronic Congestive heart failure with preserved ejection fraction, present on admission. Chronic. -continue BB, ACEI for afterload reduction -hold torsemide #History of seizure disorder, present on admission. Chronic. - Continue divalproex 250 mg twice daily #History of Crohn's disease, present on admission. Chronic. - Continue sulfasalazine 1000 mg 3 times daily with meals #PTSD, present on admission. Chronic. - Continue prazosin 2 mg in the morning and 4mg at night #Hypertension, present on admission. Chronic. - continue home med #Obstructive sleep apnea, present on admission. Chronic. - Continue CPAP at night #Anemia, present on admission. Chronic. - Continue ferrous gluconate 324 mg daily #Asthma, present on admission. Chronic. - Continue Symbicort and albuterol as needed #Tobacco use disorder, present on admission. Chronic. - Cessation counseled, patient uninterested at this time - Nicotine patch as needed #Morbid Obesity, present on admission. Chronic. - BMI 46.6 . Subcutaneous heparin on board. Observation the status Full code copies to: [facility]JUNITO GUPTA Melaku MD Apr 30, 2017 17:18 Blu Tejada MD Apr 30, 2017 17:18
[2017-04-30] MEDS ORDERED: MeTOProlol XL 50 mg ER24 Tablet PO SCH (17:25)
[2017-04-30] MEDS ORDERED: Lidocaine 5% 35.5 Gm Ointment TOPICAL PRN (17:25)
[2017-04-30] MEDS: 0.9% Sodium Chloride 1,000 ML IV SCH (18:41)
--- NOTE | 2017-04-30 19:13 | CONS ---
[address] [address] CONSULTATION REPORT PATIENT: MEDINA BENAVIDEZ : 1975 MR#: [id number] ADMIT: 04/30/2017 JOB ID: [id number] DATE OF SERVICE: 04/30/2017 REASON FOR CARDIOLOGY CONSULT: ED physician asked me to see this patient regarding chest pain with underlying hypertrophic cardiomyopathy. CHIEF COMPLAINT: Chest pain. PRESENT HISTORY: This 41-year-old, male has a history of hypertrophic cardiomyopathy, without any significant coronary artery disease based on left heart catheterization in November 2013, chronic EKG changes with LVH and anterolateral deep T-wave inversion, essential hypertension, hyperlipidemia, morbid obesity, diastolic heart failure, PTSD, tobacco abuse, who has had multiple hospital admissions in the past because of chest pain. Again got admitted because of episode of chest pain which started at about 10:30 this morning. According to the patient, he was not doing anything. He was sitting watching TV and felt left-sided chest pain which was on a scale of 1-10 about 6 in intensity. He felt shortness of breath, nausea and sweaty. The pain lasted about 4 hours. It radiated to his left shoulder. He did not have vomiting. It was not getting worse with exertion. No fever, cough expectoration. It was not getting worse with deep breathing. 911 was called. The patient was brought to the ED. The patient was given nitroglycerin. There was transient blood pressure drop which got improved with IV fluid. At present, he is lying down on bed. He is not having any active chest pain. However, he has a history of fibromyalgia and he has tender spots and his whole body hurts. The patient had left heart catheterization in November 2013. At that time, the patient has mild luminal irregularities without any significant atherosclerotic coronary artery disease. LVEDP was normal. His last echocardiogram was done in March 22, 2017, which revealed LV ejection fraction 70% to 75% with moderate concentric LVH and severe apical hypertrophy without any significant valvular pathology or pulmonary hypertension. The patient had recent hospital admission due to syncope which was felt due to dehydration. The patient denies any family history of sudden cardiac due to hypertrophic cardiomyopathy or arrhythmias. However, grandfather had massive heart attack and . According to the patient, he gets chest pain 1-2 times a week but today it was prolonged. He still smokes but he has cut down. At present, he is not using other recreational medication. No fever, chills, PND, orthopnea, or stroke-like symptoms or active bleeding. PAST MEDICAL HISTORY: History of hypertrophic cardiomyopathy with hyperdynamic LV function without any significant valvular pathology, history of left heart catheterization in November 2013 without any significant coronary artery disease. LV ejection fraction 70% to 75%, essential hypertension, hyperlipidemia, morbid obesity, history of diastolic heart failure, history of anxiety, depression, PTSD, possible dissociative disorder, suspected bipolar disorder, suspected Crohn disease, migraine headache, fibromyalgia, diffuse pain, asthma. PAST SURGICAL HISTORY: As stated above plus appendectomy. ALLERGIES: 1. TRAMADOL. 2. CYCLOBENZAPRINE. 3. NSAIDS. 4. AMITRIPTYLINE. 5. CODEINE. 6. TELMISARTAN. MEDICATION AT HOME: 1. Atorvastatin 40 mg 2. Divalproex 250 mg tablet b.i.d. 3. Duloxetine 60 mg b.i.d. 4. Ferrous gluconate 325 mg q.a.m. 5. Losartan 25 mg once a day. 6. Metoprolol succinate 50 mg once a day. 7. [place]-3. 8. Omeprazole 40 mg b.i.d. 9. Prazosin 2 mg p.o. q.a.m. and 40 mg h.s. 10. Lyrica 300 mg b.i.d. 11. Sulfasalazine 500 mg tablet 1000 mg t.i.d. 12. Tizanidine 4 mg tablet 80 mg t.i.d. 13. Torsemide 20 mg tablet 10 mg p.o. q.a.m. SOCIAL HISTORY: History of tobacco abuse. At present, denies any alcohol abuse. FAMILY HISTORY: As stated above. REVIEW OF SYSTEMS: Ten-point review of systems were obtained. They are negative except as stated above. PHYSICAL EXAMINATION: Blood pressure now 140/91, heart rate 53, pulse oximetry revealed oxygen saturation 99% on 2 L. Respiratory rate 20. HEENT: No significant anemia, jaundice. Neck: No apparent JVP or carotid bruit. Chest: No obvious crepitation or rhonchi. CVS: S1, S2 normal. No S3, LV S4 present, very soft ejection systolic murmur at the apex. Abdomen: Obese, no obvious pulsatile mass. Extremities: Trace bilateral pedal edema. Vascular: No evidence of critical limb ischemia. ORDERLY: Alert, oriented to time, place, and person. No obvious motor or sensory deficit. EKG today at 12:32 p.m. revealed sinus rhythm with evidence of diffuse asymmetrical T-wave inversion in lead V2 to V6, L1, aVL and L2 which are old with some ST depression. QTc 457 msec. [place] interval 137 msec. Heart rate about 59, suggestive of sinus bradycardia with early transition. CT angio chest did not reveal any pulmonary embolism. Mild dependent atelectasis in the lungs. Heart size normal. LABORATORIES: Sodium 141, potassium 3.7, BUN 9, creatinine 0.92 with normal magnesium, AST, ALT, troponin. ProBNP 1572. Hemoglobin 11.4, platelets 170. WBC 5.5. ASSESSMENT/PLAN: Prolonged chest pain in the setting of hypertrophic cardiomyopathy without any significant coronary artery disease based on left heart catheterization done in November 2013, chronic predominantly anterolateral T-wave inversion on surface EKG with underlying multiple psychiatric disorders as stated above, as well as fibromyalgia, morbid obesity, etc. The patient does not have any significant epicardial coronary artery disease. In his case, chest pain etiology appears to be multifactorial. He has a fibromyalgia. He has a diffuse tenderness and some of the chest pain could be due to underlying fibromyalgia as well as some drug-seeking behavior, as he was asking about Dilaudid. He may have subendocardial ischemia due to hypertrophic cardiomyopathy. So far, troponin normal. I do not see any new significant EKG changes. On recent echocardiogram, LV ejection fraction was 70% to 75% and no significant valvular pathology or ABHISHEK seen. No significant obstruction seen. In his case, I will recommend discontinuation of diuretic. The patient will need optimization of volume status. Will recommend beta-valentino to keep the heart rate about 50. If serial troponin turns out to be normal, I do not see any need for perfusion study as in November 2013, left heart catheterization did not reveal any significant coronary artery disease. Behavior modification will help him as well to prevent recurrent hospital admissions due to chest pain. Discussed the plan with the patient. He was examined in the presence of ED nurse. All the questions were answered. Tomorrow, my associate Dr. Rangel will be available to see the patient. Total time spent today at least 70 minutes including reviewing his old records.
--- NOTE | 2017-04-30 19:59 | NUR ---
admit patient received to room 3027 at 1750. patient oriented to room and call light. tolerated dinner with no problems. allergy sticker placed to armband. tele #[id number] placed per GLOBE [employer]. continuous pulse oximeter placed due to patient has sleep apnea and has machine. states "i haven't used it in about 6 months". "there is no way to get it here because I live in [place]". Respiratory therapy notified. brien rn notified at 1900. problem added to care plan. normal saline started at 75ml/hr as ordered. patient in bariatric bed. report given to brien martin at 1900.
[2017-04-30] MEDS ORDERED: Albuterol 2.5 mg/3 mL Inhalation Solution NEB PRN (20:00)
[2017-04-30] MEDS: Heparin 5,000 Unit/mL Inj SUBQ SCH (20:13)
[2017-04-30] MEDS: DULoxetine 30 mg DR Capsule PO SCH (20:14)
[2017-04-30] MEDS: oxyCODONE-Acetamin 10-325 mg Tablet PO PRN (20:15)
[2017-04-30] MEDS: Pantoprazole 40 mg ER24 Tablet PO SCH (21:37)
[2017-04-30] MEDS: Sulfasalzine 500 mg Tablet PO SCH (21:37)
[2017-05-01] VITALS (10 sets, daily range): BP systolic 140–193; BP diastolic 90–119; PULSE 65–83; RESP 16–20; O2SAT 96–99
[2017-05-01] MEDS: oxyCODONE-Acetamin 10-325 mg Tablet PO PRN ×3 (04:31→22:34)
[2017-05-01] MEDS: 0.9% Sodium Chloride 1,000 ML IV SCH (04:31)
--- NOTE | 2017-05-01 05:28 | NUR ---
Chest Pain: Pt c/o continued chest pain 12/04, no change since arrival; no other cardiac symptoms. C/o chronic generalized pain 02/03; medication administered; effective. pt using 2 L O2 with cont pulse ox for ORLANDO. Pt slept most of the night, pleasant and cooperative with care.
[2017-05-01 06:48] LABS: BASOPHILS % (AUTO) 0.4 % (0-3); EOSINOPHILS % (AUTO) 0 % (0-5); MONOCYTES % (AUTO) 7.1 % (4-12); Mean Corpuscular Hemoglobin 32.4 pg (27.0-35.0); Mean Corpuscular Volume 95.4 fL (81-100); Platelet Count 160 bil/L (150-400)
[2017-05-01] MEDS: DULoxetine 30 mg DR Capsule PO SCH ×2 (08:01→22:32)
[2017-05-01] MEDS: Pantoprazole 40 mg ER24 Tablet PO SCH ×2 (08:02→17:25)
[2017-05-01] MEDS: Heparin 5,000 Unit/mL Inj SUBQ SCH ×2 (08:02→22:38)
[2017-05-01] MEDS: MeTOProlol XL 50 mg ER24 Tablet PO SCH ×3 (08:02→09:48)
[2017-05-01] MEDS: Sulfasalzine 500 mg Tablet PO SCH ×2 (08:03→18:13)
[2017-05-01] MEDS: Omega-3 Fatty Acids 1,000 mg Capsule PO SCH (08:04)
[2017-05-01] MEDS ORDERED: HYDROmorphone 1 mg/mL Inj IVPUSH ONE (08:53)
--- NOTE | 2017-05-01 10:15 | NUR ---
Social Work-initial assessment/ readiness for discharge/multidisciplinary rounds: Data:See initial assessment. Pt is a 41 y/o male who was admitted on 04/30/17 for chest pain per H&P. Pt's insurance is [employer] and PCP is Jose in [place]. EMR reviewed. JESSICA met with pt at bedside, SW role explained. Pt is alert and oriented x3. Pt resides at home with his roommate in 2nd floor apartment. Pt uses either a cane or electric w/c at baseline and does not drive. Pt has no HH or SNF history. Pt has no superintendent terminal care insurance or VA benefit. Pt states he goes to [facility] in [place] 2 times a month for counseling and sees a psychiatrist. Pt has not completed DPOA/ advanced directive and is declining any information. Pt states that he will likely need medicaid taxi home, SW confirmed pt did arrive via EMS. SW provided pt with discharge planning checklist and encouraged pt to call with any questions, phone number has been provided on white board in room. No anticipated discharge needs. SW will continue to follow if needs arise. Assessment:P who is independent at baseline. Plan:Pt to discharge home when medically stable. Pt will likely need Medicaid taxi at discharge. No anticipated discharge needs. SW will continue to follow if needs arise. JACEK Cheng Addendum: 05/01/17 at 1020 by YOHAN PATRICK SS Amended: Links added.
--- NOTE | 2017-05-01 11:00 | NUR ---
V-Tach per tele pt had 7 beats of V-Tach. Pt was resting in bed and asymptomatic. Denied any new onset of cp. notified
--- NOTE | 2017-05-01 12:20 | DRSVH ---
[facility] [address] [place] [address] Echocardiogram Report Name: MEDINA BENAVIDEZ Date: 017 Height: 68 in Hospital Exam Location: [facility] Weight: 307 lb Gender: Male BSA: 2.5 m2 : 1975 Age: 41 yrs BP: 153/90 mmHg Reason For Study: CHEST PAIN Ordering Physician: YECENIA VEE Performed By: Rene Alfonso Referring Physician: Carol Sommers Interpretation Summary 1) Mild to moderate concentric left ventricular but severe at the apex. 2) Left ventricular systolic function is 70-75% with cavity oliteration of the apex, associated with severe apical hypertrophy. 3) No focal wall motion abnormalities. 4) No significant valvular abnormalities. 5) Compared to the Echo done 04/20/2017, no significant change. Procedure: A limited 2D, color and Doppler echocardiogram was performed to assess left ventricular function. The study quality was technically difficult. Comparison is made with the echocardiogram of 04/20/17. A contrast injection of Definity was performed to improve assessment of LV function. The patient was in normal sinus rhythm during the exam. Left Ventricle: Left ventricular wall thickness is mild-moderately increased. Severe apical hypertrophy with cavity obliteration. The ejection fraction is estimated to be 70-75%. There are no focal wall motion abnormalities. Right Ventricle: The right ventricle is normal in size and function. Atria: Both atria are normal in size. The interatrial septum is intact with no evidence for an atrial septal defect. Mitral Valve: The mitral valve is normal. There is no mitral regurgitation noted. Aortic Valve: The aortic valve is trileaflet. The aortic valve opens well. No aortic regurgitation is present. Tricuspid Valve: The tricuspid valve is normal. No tricuspid regurgitation. Pulmonary artery pressures cannot be estimated because of the lack of a measurable TR jet velocity. Great Vessels: The aortic root is normal size. The ascending aorta is normal in size. The IVC is dilated (diameter is greater than 2.1 cm) yet it collapses greater than 50% with a sniff. This suggests a right atrial pressure of 8 mm Hg. Pericardium/ Pleura There is no pericardial effusion. There is no pleural effusion. MMode/2D Measurements & Calculations LVIDd: 5.5 cm RA long axis asc Aorta LVIDs: 3.0 cm LA A2 area: 24.1 cm Diam: 3.1 cm FS: 45.2 % LA A4 area: 25.4 cm RA area IVSd: 1.4 cm LA length (vol): 6.4 cm LVPWd: 1.1 cm LA vol: 80.7 ml : 18.4 cm LA vol index RA vol: 56.3 ml RA : 22.9 mm2 IVC diam: 2.4 cm LV finley. diameter/BSA LV sys. diameter/BSA (cm/m^2): 2.3 (cm/m^2): 1.2 Doppler Measurements & Calculations Med Peak E' Carlitos: 6.1 cm/sec Lat Peak E' Carlitos: 6.6 cm/sec Reading Physician:12:20 PM
[2017-05-01] MEDS ORDERED: 0.9% Sodium Chloride 0 ML ONE (13:21)
--- NOTE | 2017-05-01 15:01 | PCM.PNMED ---
Subjective Date of Service May 01, 2017 Subjective patient states he has severe chest pain while comfortably sitting and eating lunch.he was given IV Dilaudid in the morning. he asked for more Dilaudid but explained to him and may not give him as frequently as he wanted . he stated why he is still in the hospital if he can't get dilaudid as he wanted and he might as well go home if that is the case.. Echo unchanged,BP was high now improved, IVF discontinued.he had 7 beats of NSVTs Exam Vital Signs Vital Sign - Last Date Time Temp Pulse Resp B/P Pulse Ox O2 Delivery O2 Flow Rate FiO2 05/01/17 13:06 36.5 83 18 193/117 97 Nasal Cannula 2.00 Intake and Output 04/30/17 04/30/17 05/01/17 Cumulative From/Thru 15:00 23:00 07:00 04/30/17 12:19 - 05/01/17 06:45 Intake Total 1000 ml 830 ml 1830 ml Output Total 800 ml 800 ml Balance 200 ml 830 ml 1030 ml IV Total 1000 ml 830 ml 1830 ml Output Urine Total 800 ml 800 ml Exam Gen. Morbidly obese patient is lying comfortably in hospital bed HEENT: Head is normocephalic atraumatic, Pupils equal and reactive, extraocular movements intact, Lungs clear to auscultation bilaterally Heart regular rate and rhythm without murmurs gallops or rubs Abdomen soft nontender without hepatosplenomegaly Extremities pulses are present dorsalis pedis posterior tibialis and radial. Skin is warm and dry there are no rashes, Psych alert and oriented to person place and time Neuro cranial nerves II through XII are grossly intact Lymph: There is no lymphadenopathy appreciated in the cervical supra infraclavicular regions : no soriano IVs and Medications Medications Reviewed: Medications were reviewed in detail Lab and Diagnostics Result Diagram: 05/01/1761905/01/17619 X-Rays, CTs and MRIs PROCEDURE: CT ANGIO CHEST PULMONARY EMBOLISM ([id number]) INDICATIONS: chest pain, dyspnea, hypotension IMPRESSION: 1. No evidence of pulmonary embolism. Dictated by: Jose Ambriz M.D. on 04/30/2017 at 14:56 12-lead ECG SR LVH with repolarization change Cardiac Echo Impressions ECHO 7/27/17 Interpretation Summary There is moderate concentric hypertrophy with severe apical hypertrophy with cavity obliteration. The ejection fraction is estimated to be 70-75%. Assessment & Plan 41-year-old gentleman with past medical history of hypertrophic cardiomyopathy, HTN, hyperlipidemia, history of catalepsy, morbid obesity and diastolic CHF presented with chest pain of 4 hours. # chest pain,acute on chronic,poa -Due to hypertrophic cardiomyopathy -Initially started on NS at 75 ml/h, initial BP low and received 1 L in the emergency room.SBP 195 today,IVF discontinued. - continue home metoprolol 50mg /d -Discontinue torsemide - limited echo unremarkable and unchanged -No need for perfusion test at this point per cardiology. -Continue alprazolam for anxiety which may have contributed to pain. Patient also has pain meds seeking behavior #Depression/Anxiety, present on admission. Chronic. - Continue duloxetine 60 mg twice a day - Continue alprazolam 1 mg increased to tid prn as per pt, follow up with psych on d/c #Chronic pain, probable FM or opiod habituation, present on admission. Chronic. - Continue Lyrica 300 mg twice daily - Continue oxycodone regimen; do not escalate due to pain contract -monitor any drug seeking behavior, minimize opioid chronic, stable, resolved #Chronic Congestive heart failure with preserved ejection fraction, present on admission. Chronic. -continue BB, ACEI for afterload reduction -hold torsemide #History of seizure disorder, present on admission. Chronic. - Continue divalproex 250 mg twice daily #History of Crohn's disease, present on admission. Chronic. - Continue sulfasalazine 1000 mg 3 times daily with meals #PTSD, present on admission. Chronic. - Continue prazosin 2 mg in the morning and 4mg at night #Hypertension, present on admission. Chronic. - continue home med #Obstructive sleep apnea, present on admission. Chronic. - Continue CPAP at night #Anemia, present on admission. Chronic. - Continue ferrous gluconate 324 mg daily #Asthma, present on admission. Chronic. - Continue Symbicort and albuterol as needed #Tobacco use disorder, present on admission. Chronic. - Cessation counseled, patient uninterested at this time - Nicotine patch as needed #Morbid Obesity, present on admission. Chronic. - BMI 46.6 . Subcutaneous heparin on board. Observation the status Full code Possible discharge tomorrow [employer] Mechanical Devices: Venous Foot Pump Blu Tejada MD May 01, 2017 15:01
--- NOTE | 2017-05-01 18:17 | NUR ---
Hypertension Pts morning BP was 197/117. Notified . Administered 5mg Amilodapine. Reassessed BP 182/116. Notified . Awaiting response
[2017-05-02 00:28] VITALS: BP 184/129; PULSE 69; RESP 20; O2SAT 96
[2017-05-02] MEDS ORDERED: MeTOProlol 1 mg/mL 5 mL Inj IV ONE (01:10)
[2017-05-02 04:57] VITALS: BP 168/118; PULSE 78; RESP 20; O2SAT 95
[2017-05-02 05:06] VITALS: BP 165/105
--- NOTE | 2017-05-02 05:13 | NUR ---
Hypertension/Pain: Nursing staff reported pt's BP 184/129, RN found BP cuff being used was to small for pt; with appropriate size cuff, BP 172/78. Later in shift, pt's BP 165/105, alerted, order to give am BP meds now; pt is symptomatic with a BAEZ. Pt also c/o general pain 02/03, states this is his baseline. C/o bloating, pt offered medication, he refused; RN encouraged pt to go for walks, pt said he would the next day. Pt using 2 L O2 with cont pulse ox while sleeping for [place]LAD[place]. Pt slept off/on throughout the night, pleasant and cooperative with care.
[2017-05-02] MEDS: MeTOProlol XL 50 mg ER24 Tablet PO SCH (05:30)
[2017-05-02 07:54] VITALS: BP 160/120
[2017-05-02] MEDS: Pantoprazole 40 mg ER24 Tablet PO SCH (07:57)
[2017-05-02] MEDS: Sulfasalzine 500 mg Tablet PO SCH (07:58)
[2017-05-02] MEDS: DULoxetine 30 mg DR Capsule PO SCH (07:59)
[2017-05-02] MEDS: Omega-3 Fatty Acids 1,000 mg Capsule PO SCH (08:01)
[2017-05-02] MEDS: Heparin 5,000 Unit/mL Inj SUBQ SCH (08:01)
[2017-05-02] MEDS: oxyCODONE-Acetamin 10-325 mg Tablet PO PRN (08:02)
[2017-05-02 10:09] VITALS: PULSE 84
--- NOTE | 2017-05-02 10:48 | PCM.DIMED ---
Discharge Instructions Date of Service May 02, 2017 Dates of Hospitalization Apr 30, 2017 at 17:19 Discharge Diagnosis Discharge Diagnosis # chest pain,acute on chronic,poa,improved -Due to hypertrophic cardiomyopathy #Depression/Anxiety, present on admission. Chronic. #Chronic pain, probable FM or opiod habituation, present on admission. Chronic. chronic, stable, resolved #Chronic Congestive heart failure with preserved ejection fraction, present on admission. Chronic. #History of seizure disorder, present on admission. Chronic. #History of Crohn's disease, present on admission. Chronic. #PTSD, present on admission. Chronic. #Hypertension, present on admission. Chronic. #Obstructive sleep apnea, present on admission. Chronic. #Anemia, present on admission. Chronic. #Asthma, present on admission. Chronic. #Tobacco use disorder, present on admission. Chronic. #Morbid Obesity, present on admission. Chronic. Patient Instructions Patient Instructions You were hospitalized due to chest pain. Chest pain seems to be due to hypertrophic cardiomyopathy.You had low blood pressure at presentation. You need to be well hydrated .We have discontinued your torsemide per fibreglass gun hand recommendation. Please check blood pressure and follow-up closely with PCP for better blood pressure control. I have started you on amlodipine 10 mg by mouth daily. Follow-up Provider: [facility] Follow-up with PCP in: 1 week Blu Tejada MD May 02, 2017 10:48
[2017-05-02] MEDS ORDERED: AMLO5TAB2 PO (10:50)
--- NOTE | 2017-05-02 13:45 | NUR ---
Discharge Pt discharged at this time, all belongings gathered and returned to pt. VSS. No complains of increased pain or diaphoresis. IV D/Cd intact, tele monitor removed. Discharge packet printed and reviewed with pt. Pt taken from [facility] by [facility] in wheelchair to meet ride in the lobby.
--- NOTE | 2017-05-02 13:46 | NUR ---
Social Work-discharge: Data:EMR Reviewed. Pt is on day 2 of hospitalization for chest pain per H&P. pt is medically stable for discharge. SW confirmed with pt that he will need taxi ride home, pt did come in via ambulance. 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 Pt has been up independent n in his room. SW updated pt and RN both agreeable. No other SW needs identified. All updated and agreeable to plan. Assessment:Pt who is independent at baseline. Plan:Pt to discharge home today via medicaid taxi at 1400. No other SW needs identified. All updated and agreeable to plan. JACEK Cheng
--- NOTE | 2017-05-02 20:05 | PCM.DC.MED ---
Discharge Summary Date of Service May 02, 2017 Dates of Hospitalization Date of Hospital Admission Apr 30, 2017 at 17:19 Date of Discharge: May 02, 2017 Providers: Admitting Physician: Blu Payne MD Primary Care Physician: Junito Marsh Attending Physician: Blu Payne MD Diagnosis at Time of Discharge Diagnosis at Time of Discharge # chest pain,acute on chronic,poa,improved -Due to hypertrophic cardiomyopathy #Depression/Anxiety, present on admission. Chronic. #Chronic pain, probable FM or opiod habituation, present on admission. Chronic. chronic, stable, resolved #Chronic Congestive heart failure with preserved ejection fraction, present on admission. Chronic. #History of seizure disorder, present on admission. Chronic. #History of Crohn's disease, present on admission. Chronic. #PTSD, present on admission. Chronic. #Hypertension, present on admission. Chronic. #Obstructive sleep apnea, present on admission. Chronic. #Anemia, present on admission. Chronic. #Asthma, present on admission. Chronic. #Tobacco use disorder, present on admission. Chronic. #Morbid Obesity, present on admission. Chronic. Consultations cardiology Dr Sommesr Procedures XRay, CTs & MRIs PROCEDURE: CT ANGIO CHEST PULMONARY EMBOLISM ([id number]) INDICATIONS: chest pain, dyspnea, hypotension IMPRESSION: 1. No evidence of pulmonary embolism. Dictated by: Jose Ambriz M.D. on 04/30/2017 at 14:56 ECG 12 Lead SR LVH with repolarization change Cardiac Echo Impression ECHO 03/22/17 Interpretation Summary There is moderate concentric hypertrophy with severe apical hypertrophy with cavity obliteration. The ejection fraction is estimated to be 70-75%. ECHO 05/01/17 Interpretation Summary 1) Mild to moderate concentric left ventricular but severe at the apex. 2) Left ventricular systolic function is 70-75% with cavity oliteration of the apex, associated with severe apical hypertrophy. 3) No focal wall motion abnormalities. 4) No significant valvular abnormalities. 5) Compared to the Echo done 04/20/2017, no significant change. Brief History per HPI 41-year-old gentleman with past medical history of hypertrophic cardiomyopathy, HTN, hyperlipidemia, morbid obesity and diastolic CHF presented with chest pain of 4 hours. Patient states he started to have sudden onset left-sided chest pain,onset at rest ,6/10, constant,dull aching at 1030 am today. Patient has a history of multiple ED visits for chest pain was unrevealing workup except hypertrophic cardiomyopathy.last cardiac cath 12/11/13 no significant CAD.Last echo 03/22/17 showed moderate concentric hypertrophy with severe apical hypertrophy with cavity obliteration.EF 70-75%. Patient states he has chest pain 1-2 times a week for the last few months. Today's chest pain is slightly more worse and accompanied by diaphoresis which prompted ED visit. He also states his fibromyalgia pain is " acting up" . He states he had slight worsening of his baseline dyspnea. Patient uses a walker to walk in the house, electric wheelchair to move around neighbourhood and longer distances ED course: Initial BP 88/18,hb11.4,BNP 1572, troponin negative, EKG SR LVH with repolarization abnormalities.CTA chest negative for PE cardiology Dr Sommers consulted by ED and recommended IV fluids ,BB and limited echo . BP and Symptoms improved with IV fluid. Hospital Course 41-year-old gentleman with past medical history of hypertrophic cardiomyopathy, HTN, hyperlipidemia, history of catalepsy, morbid obesity and diastolic CHF presented with chest pain of 4 hours. # chest pain,acute on chronic,poa -pain improved with fluids and dcing torsemide -Due to hypertrophic cardiomyopathy -Initially started on NS at 75 ml/h, initial BP low and received 1 L in the emergency room.SBP 195 today,IVF discontinued. - continue home metoprolol 50mg /d -Discontinue torsemide up on discharge - limited echo unremarkable and unchanged -No need for perfusion test at this point per cardiology. -Continue alprazolam for anxiety which may have contributed to pain. Patient also has pain meds seeking behavior #Depression/Anxiety, present on admission. Chronic. - Continue duloxetine 60 mg twice a day - Continue alprazolam 1 mg increased to tid prn as per pt, follow up with psych on d/c #Chronic pain, probable FM or opiod habituation, present on admission. Chronic. - Continue Lyrica 300 mg twice daily - Continue oxycodone regimen; do not escalate due to pain contract -patient has drug seeking behavior, minimize opioid chronic, stable, resolved #Chronic Congestive heart failure with preserved ejection fraction, present on admission. Chronic. -continue BB, ACEI for afterload reduction -discontinued torsemide #History of seizure disorder, present on admission. Chronic. - Continue divalproex 250 mg twice daily #History of Crohn's disease, present on admission. Chronic. - Continue sulfasalazine 1000 mg 3 times daily with meals #PTSD, present on admission. Chronic. - Continue prazosin 2 mg in the morning and 4mg at night #Hypertension, present on admission. Chronic. - continue home med #Obstructive sleep apnea, present on admission. Chronic. - Continue CPAP at night #Anemia, present on admission. Chronic. - Continue ferrous gluconate 324 mg daily #Asthma, present on admission. Chronic. - Continue Symbicort and albuterol as needed #Tobacco use disorder, present on admission. Chronic. - Cessation counseled, patient uninterested at this time - Nicotine patch as needed #Morbid Obesity, present on admission. Chronic. - BMI 46.6 . Subcutaneous heparin on board. Observation the status Full code discharge home Exam Vital Signs (Last) Date Time Temp Pulse Resp B/P Pulse Ox O2 Delivery O2 Flow Rate FiO2 05/02/17 10:09 84 05/02/17 07:54 160/120 05/02/17 04:57 36.7 20 95 Nasal Cannula 2.00 Exam Gen. Morbidly obese patient is lying comfortably in hospital bed HEENT: Head is normocephalic atraumatic, Pupils equal and reactive, extraocular movements intact, Lungs clear to auscultation bilaterally Heart regular rate and rhythm without murmurs gallops or rubs Abdomen soft nontender without hepatosplenomegaly Extremities pulses are present dorsalis pedis posterior tibialis and radial. Skin is warm and dry there are no rashes, Psych alert and oriented to person place and time Neuro cranial nerves II through XII are grossly intact Lymph: There is no lymphadenopathy appreciated in the cervical supra infraclavicular regions : no soriano Test 04/30/17 12:10 04/30/17 13:05 04/30/17 15:40 04/30/17 18:30 Hold Savage Top Tube Received (Received) Pro-B-Type Natriuretic Peptide 1572pg/mL (0-86) Hold Urine Received (Received) Troponin T < 0.010ug/L (0.0-0.011) Test 05/01/17 06:20 White Blood Count 4.5th/mm3 (3.8-10.1) Red Blood Count 3.95mil/mm3 (4.40-5.80) Hemoglobin 12.8g/dL (13.8-17.2) Hematocrit 37.7% (41.0-50.0) Mean Corpuscular Volume 95.4fL (81-100) Mean Corpuscular Hemoglobin 32.4pg (27.0-35.0) Mean Corpuscular Hemoglobin Concent 34.0% (32.0-37.0) Red Cell Distribution Width 14.5% (12.3-15.4) Platelet Count 160bil/L (150-400) Neutrophils (%) (Auto) 65.0% (40-74) Lymphocytes (%) (Auto) 27.3% (14-46) Monocytes (%) (Auto) 7.1% (4-12) Eosinophils (%) (Auto) 0% (0-5) Basophils (%) (Auto) 0.4% (0-3) Sodium Level 143mEq/L (134-144) Potassium Level 3.8mEq/L (3.5-5.2) Chloride Level 106mEq/L (97-108) Carbon Dioxide Level 24mmol/L (18-29) Blood Urea Nitrogen 8mg/dL (6-24) Creatinine 0.81mg/dL (0.76-1.27) Estimat Glomerular Filtration Rate 111mL/min (>59) Glucose Level 97mg/dL (60-99) Calcium Level 8.4mg/dL (8.5-10.1) Magnesium Level 2.0mg/dL (1.6-2.6) Total Bilirubin 0.2mg/dL (0.0-1.2) Aspartate Amino Transf (AST/SGOT) 8U/L (0-50) Alanine Aminotransferase (ALT/SGPT) 6U/L (0-44) Alkaline Phosphatase 64U/L (25-150) Total Protein 5.7g/dL (6.4-8.4) Albumin 3.7g/dL (3.4-5.0) Discharge Medications Discharge Medications Amlodipine (Amlodipine) 5 Mg Tablet 10 MG PO DAILY Prescribed by: BLU PAYNE MD Atorvastatin Calcium (Atorvastatin Calcium) 40 Mg Tablet 40 MG PO HS (Reported) Divalproex (Divalproex) 250 Mg Tablet.dr 250 MG PO BID (Reported) Duloxetine (Duloxetine) 60 Mg Capsule.dr 60 MG PO BID (Reported) Ferrous Gluconate (Ferrous Gluconate) 324 Mg Tab 324 MG PO QAM (Reported) Losartan Potassium (Losartan Potassium) 25 Mg Tablet 25 MG PO QAM (Reported) Metoprolol Succinate ER (Metoprolol Succinate ER) 50 Mg Tab.er.24h 50 MG PO QAM (Reported) [place]-3/Dha/Epa/Fish Oil (Fish Oil 1,000 mg Softgel) 1 Each Capsule 1 EACH PO QAM (Reported) Omeprazole (Omeprazole) 40 Mg Capsule.dr 40 MG PO BIDAC (Reported) Prazosin (Prazosin) 2 Mg Capsule 2 MG PO QAM (Reported) PRAZOSIN 2 MG IN AM AND 4 MG AT HS Prazosin (Prazosin) 2 Mg Capsule 4 MG PO HS (Reported) PRAZOSIN 2 MG IN AM AND 4 MG AT HS Pregabalin (Lyrica) 300 Mg Capsule 300 MG PO BID (Reported) Sulfasalazine (Sulfasalazine) 500 Mg Tablet 1,500 MG PO BIDWM (Reported) Tizanidine (Tizanidine) 4 Mg Tablet 8 MG PO TID (Reported) As needed Albuterol Sulfate (Ventolin HFA Inhaler) 200 Puff/18 Gm Inhaler 2 PUFFS INHALATION Q4H PRN PRN For Shortness of Breath (Reported) Alprazolam (Alprazolam) 1 Mg Tablet 1 MG PO DAILY PRN PRN For Anxiety (Reported ) Alprazolam (Alprazolam) 1 Mg Tablet 1-2 MG PO HS PRN PRN Insomnia (Reported) Epinephrine (Epipen 2-Jonah) 0.3 Mg/0.3 Ml Auto.injct 0.3 MG IM ASDIRECTED PRN PRN For Anaphyllaxis (Reported) Lidocaine HCl (Lidocaine) 142 Appl/37.5 Gm Oint 1 APPLIC TOPICAL PRN Neuropathy (Reported) TO LEFT THIGH, NECK, AND/OR LOWER BACK Loperamide (Loperamide) 2 Mg Capsule 2 MG PO Q6H PRN PRN For Diarrhea or Loose Stool (Reported) Meclizine (Bonine) 25 Mg Tab.chew 25 MG PO Q8H PRN PRN For Dizziness (Reported) Ondansetron (Ondansetron) 4 Mg Tablet 4-8 MG PO Q8H PRN PRN For Nausea (Reported ) Promethazine (Promethazine) 25 Mg Tablet 50 MG PO TID PRN PRN For Nausea ( Reported) Rizatriptan ODT (Rizatriptan) 10 Mg Tab.rapdis 10 MG PO ASDIRECTED PRN PRN For Headache (Reported) TAKE 1 TABLET AT ONSET OF HEADACHE. MAY REPEAT IN 2 HRS IF NEEDED. oxyCODONE-Acetaminophen 10-325 mg (oxyCODONE-Acetaminophen 10-325 mg) 1 Each Tablet 1 TABLET PO TID PRN PRN For Pain Prescribed by: CORDELL CEDENO MD Followup Plan Disposition: home Patient Instructions You were hospitalized due to chest pain. Chest pain seems to be due to hypertrophic cardiomyopathy.You had low blood pressure at presentation. You need to be well hydrated .We have discontinued your torsemide per refractory repairer recommendation. Please check blood pressure and follow-up closely with PCP for better blood pressure control. I have started you on amlodipine 10 mg by mouth daily. Follow-up Provider: JUNITO MARSH Follow-up with PCP in: 1 week copies to: JUNITO MARSH Melaku MD May 02, 2017 20:05
== END 2017-05-02 13:59 | disposition home or self-care (01) ==
LOC: SED 12:19 → MPC 17:19
PROVIDERS: ADMIT Internal Medicine; ATTEND Internal Medicine
DX: R07.9 Chest pain, unspecified (principal); I42.2 Other hypertrophic cardiomyopathy; F41.8 Other specified anxiety disorders; G89.29 Other chronic pain; I10 Essential (primary) hypertension; I25.10 Atherosclerotic heart disease of native coronary artery without angina pectoris; G47.33 Obstructive sleep apnea (adult) (pediatric); D64.9 Anemia, unspecified; E78.5 Hyperlipidemia, unspecified; I50.30 Unspecified diastolic (congestive) heart failure; F43.10 Post-traumatic stress disorder, unspecified; E66.01 Morbid (severe) obesity due to excess calories; F44.2 Dissociative stupor; J45.909 Unspecified asthma, uncomplicated; I25.2 Old myocardial infarction; F17.210 Nicotine dependence, cigarettes, uncomplicated; Z88.8 Allergy status to other drugs, medicaments and biological substances; Z86.69 Personal history of other diseases of the nervous system and sense organs; Z68.42 Body mass index [BMI] 45.0-49.9, adult
CPT/HCPCS: 36415; 71010; 71275; 80053; 82948; 83735; 83880; 84484; 85025; 93005; 94799; 96361; 96372; 96374; 96375; 96376; 99285; C8924; G0378; J1170; J1644; J2270; J2405; J7030; Q9957; Q9967

== ENCOUNTER 2017-05-05 11:47 | Emergency (ER) | payer OTHER ==
[~2017-05-05] VITALS: Ht 172.7 cm; Wt 163.6 kg
[2017-05-05] VITALS (7 sets, daily range): BP systolic 79–133; BP diastolic 44–90; PULSE 53–61; RESP 16–20; O2SAT 93–100
[~2017-05-05 11:47] MED LIST changes: +AMLO5TAB2 PO; -TORS20TA3 PO
--- NOTE | 2017-05-05 12:11 | ED.REPORT ---
HPI-Chest Pain 40 and Over Date of Service May 05, 2017 ED Provider: Jonathon Rodriguez MD The pt is a 41 y/o male w/ a hx of HTN, depression, anxiety, PTSD, a VA, asthma , CHF, hyperlipidemia, and multiple other chronic conditions presenting to the ED complaining of CP onset 3 hours ago. The pt was sitting and watching TV when the pain began and the pain is primarily in the center of his chest. . He is also experiencing a headache and mild SOB. Denies nausea, diaphoresis, fevers, diarrhea, or vomiting. The pt was diagnosed w/ cardiomyopathy 3-4 weeks ago here at [facility]. He had a cardiac cath two years ago, 2 echocardiograms in the past, and his spouter is a Dr. Sami Juarez in [place]. The pt took a muscle relaxer prior to coming into the ED today. Nursing Notes Stated Complaint: CHEST PAIN Chief Complaint: Chest Pain Nursing Notes Reviewed: Yes Allergies: Coded Allergies: tramadol (Verified Allergy, Intermediate, 05/05/17) Squash (Verified Allergy, Unknown, Anaphylaxis, 05/05/17) cyclobenzaprine HCl (Verified Allergy, Unknown, 05/05/17) NSAIDS (Non-Steroidal Anti-Inflamma (Verified Adverse Reaction, Intermediate, GERD, 05/05/17) amitriptyline (Verified Adverse Reaction, Intermediate, "DRUNKEN FEELING" , 05/05/17) codeine (Verified Adverse Reaction, Intermediate, DIFFICULTY SWALLOWING, ) telmisartan (Verified Adverse Reaction, Intermediate, "DRUNKEN FEELING", ) Uncoded Allergies: GHOST PEPPER (Allergy, Severe, Anaphylaxis, 04/19/17) ZUCCHINI (Allergy, Severe, ANAPHYLAXIS, 04/19/17) Scheduled Amlodipine (Amlodipine) 5 Mg Tablet 10 MG PO DAILY Atorvastatin Calcium (Atorvastatin Calcium) 40 Mg Tablet 40 MG PO HS Divalproex (Divalproex) 250 Mg Tablet.dr 250 MG PO BID Duloxetine (Duloxetine) 60 Mg Capsule.dr 60 MG PO BID Ferrous Gluconate (Ferrous Gluconate) 324 Mg Tab 324 MG PO QAM Losartan Potassium (Losartan Potassium) 25 Mg Tablet 25 MG PO QAM Metoprolol Succinate ER (Metoprolol Succinate ER) 50 Mg Tab.er.24h 50 MG PO QAM [place]-3/Dha/Epa/Fish Oil (Fish Oil 1,000 mg Softgel) 1 Each Capsule 1 EACH PO QAM Omeprazole (Omeprazole) 40 Mg Capsule.dr 40 MG PO BIDAC Prazosin (Prazosin) 2 Mg Capsule 2 MG PO QAM PRAZOSIN 2 MG IN AM AND 4 MG AT HS Prazosin (Prazosin) 2 Mg Capsule 4 MG PO HS PRAZOSIN 2 MG IN AM AND 4 MG AT HS Pregabalin (Lyrica) 300 Mg Capsule 300 MG PO BID Sulfasalazine (Sulfasalazine) 500 Mg Tablet 1,500 MG PO BIDWM Tizanidine (Tizanidine) 4 Mg Tablet 8 MG PO TID Scheduled PRN Albuterol Sulfate (Ventolin HFA Inhaler) 200 Puff/18 Gm Inhaler 2 PUFFS INHALATION Q4H PRN PRN For Shortness of Breath Alprazolam (Alprazolam) 1 Mg Tablet 1 MG PO DAILY PRN PRN For Anxiety Alprazolam (Alprazolam) 1 Mg Tablet 1-2 MG PO HS PRN PRN Insomnia Epinephrine (Epipen 2-Jonah) 0.3 Mg/0.3 Ml Auto.injct 0.3 MG IM ASDIRECTED PRN PRN For Anaphyllaxis Lidocaine HCl (Lidocaine) 142 Appl/37.5 Gm Oint 1 APPLIC TOPICAL PRN Neuropathy TO LEFT THIGH, NECK, AND/OR LOWER BACK Loperamide (Loperamide) 2 Mg Capsule 2 MG PO Q6H PRN PRN For Diarrhea or Loose Stool Meclizine (Bonine) 25 Mg Tab.chew 25 MG PO Q8H PRN PRN For Dizziness Ondansetron (Ondansetron) 4 Mg Tablet 4-8 MG PO Q8H PRN PRN For Nausea Promethazine (Promethazine) 25 Mg Tablet 50 MG PO TID PRN PRN For Nausea Rizatriptan ODT (Rizatriptan) 10 Mg Tab.rapdis 10 MG PO ASDIRECTED PRN PRN For Headache TAKE 1 TABLET AT ONSET OF HEADACHE. MAY REPEAT IN 2 HRS IF NEEDED. oxyCODONE-Acetaminophen 10-325 mg (oxyCODONE-Acetaminophen 10-325 mg) 1 Each Tablet 1 TABLET PO TID PRN PRN For Pain General Time Seen by MD: 12:10 Chief Complaint Chest pain Hx Obtained From: Patient Arrived By: Walk-in Sudden in Onset?: Yes Onset Occurred: 1 - 4 hours ago Symptom Duration: Since onset Recent Healthcare: No recent hospitalization, Recent doctor visit Risk Factors PERC Rule PERC Result: All PERC criteria "No" Well's Criteria for PE Well's PE Score: 0-2 pts (low risk 3.6%) Past Medical History Past Medical History Notes: Difficult intubation [employer] Dr. Juarez Past Medical History Depression/Anxiety. PTSD. VA Pulmonary artery disease Hypertension High cholesterol Possible dissociative disorder. Suspected bipolar disorder. Malignant and borderline personality disorder. Suspected possible Crohn's disease. Migraine headaches. Self-reported history of fibromyalgia Chronic pain, and on pain plan with PCP Dr. Armstrong, takes Vicodin ES colitis diverticulitis GI bleed Kidney stones arthritis seizures anemia hx of stent with unknown location. in records but pt denies Reports: Asthma, Congestive heart failure, Mental illness Reports: Morbid Obesity Past Surgical History exploratory surgery s/p pancreatitis Status post steroid injection for back pain Status post negative cardiac catheterization December 11, 2013. Reports: Appendectomy Family History VA (father and aunt) before 50 Reports: Diabetes mellitus Smoking History Current Every Day Smoker (3/day) Social History Previous Suicide attempt Alcohol Use: "Social" Other Social History: Local resident Ambulatory Status Independent Review of Systems Constitutional: Denies: Fever Respiratory: Reports: Shortness of breath (mild) Cardiovascular: Reports: Chest pain GI: Denies: Diarrhea, Nausea, Vomiting Skin: Denies Diaphoresis Neurologic: Reports: Headache Complete sys rev & neg: except as marked. Physical Exam Initial Vital Signs Vital Signs (First) Date Time Temp Pulse Resp B/P Pulse Ox O2 Delivery O2 Flow Rate FiO2 05/05/17 11:51 36.5 53 16 109/66 93 Room Air Initial VS: Reviewed Head / Eyes: Atraumatic, Normocephalic, PERRL ENT: Mucous membranes moist, Conjunctiva normal, No scleral icterus Neck: Supple, Non-tender, Full range of motion Skin: Warm, Dry, No cyanosis Neurologic: Alert, Oriented, Nonfocal Psychiatric: Mood/affect normal, Behavior normal, Normal thought content General/Constitutional: Awake, Alert Appearance / Presentation: Positive: Obese, morbidly Respiratory / Chest: Atraumatic, Breath sounds NL, Breath sounds = bilat Cardiovascular: Heart rate NL, Regular rhythm, Heart sounds NL Abdomen: Atraumatic, Soft, Non-tender Interpretation & Diagnostics Lab Results Interpretation Result Diagram: 05/05/17 1225 05/05/17 1225 Test 05/05/17 12:25 White Blood Count 5.2th/mm3 (3.8-10.1) Red Blood Count 3.61mil/mm3 (4.40-5.80) Hemoglobin 11.6g/dL (13.8-17.2) Hematocrit 34.3% (41.0-50.0) Mean Corpuscular Volume 95.0fL (81-100) Mean Corpuscular Hemoglobin 32.1pg (27.0-35.0) Mean Corpuscular Hemoglobin Concent 33.8% (32.0-37.0) Red Cell Distribution Width 14.4% (12.3-15.4) Platelet Count 162bil/L (150-400) Neutrophils (%) (Auto) 60.6% (40-74) Lymphocytes (%) (Auto) 29.5% (14-46) Monocytes (%) (Auto) 8.5% (4-12) Eosinophils (%) (Auto) 0.4% (0-5) Basophils (%) (Auto) 0.4% (0-3) Sodium Level 138mEq/L (134-144) Potassium Level 4.5mEq/L (3.5-5.2) Chloride Level 103mEq/L (97-108) Carbon Dioxide Level 20mmol/L (18-29) Blood Urea Nitrogen 18mg/dL (6-24) Creatinine 1.01mg/dL (0.76-1.27) Estimat Glomerular Filtration Rate 86mL/min (>59) Glucose Level 142mg/dL (60-99) Calcium Level 8.7mg/dL (8.5-10.1) Magnesium Level 2.0mg/dL (1.6-2.6) Total Bilirubin 0.2mg/dL (0.0-1.2) Aspartate Amino Transf (AST/SGOT) 13U/L (0-50) Alanine Aminotransferase (ALT/SGPT) 8U/L (0-44) Alkaline Phosphatase 62U/L (25-150) Troponin T 0.795ug/L (0.0-0.011) Total Protein 5.8g/dL (6.4-8.4) Albumin 3.6g/dL (3.4-5.0) Hold Savage Top Tube Received (Received) ECG Interpretation ECG Interpretation: Rate 57 NSR Abnormal R-wave progression, early transition Repolarization abnormal, probable ischemia, anterolateral leads No acute changes Time: 12:17 Interpreted by: ED physician X-Ray Chest Interpretation Chest Xray Interpretation: IMPRESSION: No acute cardiopulmonary disease. Dictated by: Harris Westfall M.D. on 05/05/2017 at 14:06 Approved by: Harris Westfall M.D. on 05/05/2017 at 14:07 View: Portable, 1 view Interpretation / Wet Read by: Interpret - Radiologist Re-Eval/Medical Decision Source of Hx: Old records Time of Eval: 13:32 Re-Evaluation/Progress Note: Pt rechecked. Informed pt of need for admission. Pt understands and agrees with plan for admission. All questions addressed. Time of Eval: 14:08 Re-Evaluation/Progress Note: Rechecked pt who is feeling very drowsy after being given nitro and morphine. His chest pain has slightly improved. Consultation : Referral / Consult Name: Reed Martinez MD Consulted With: Hospitalist Call Returned at: 14:11 Airplane Technician: Will see patient, Agrees with eval, Agrees with plan, Accepts admit Counseled Regarding: Diagnosis, Lab results, Need for admission Discharge & Departure Primary Impression: Non-ST elevation VA (NSTEMI) Disposition: ADMITTED TO HOSPITAL Discharge Condition All VS Reviewed: Yes Condition: Stable Referrals: [facility] JUNITO CAMPBELL (PCP) Sami Juarez MD Scribe Attestation Portions of this note were transcribed by Bipin Schwartz. IDr. Rodriguez personally performed the history, physical exam and medical decision-making; I reviewed and confirmed the accuracy of the information in the transcribed note. copies to: [facility] JUNITO CAMPBELL; Sami Juarez MD, Kirk H MD May 05, 2017 12:11 Bipin Schwartz May 05, 2017 12:27
[2017-05-05 12:33] LABS: BASOPHILS % (AUTO) 0.4 % (0-3); EOSINOPHILS % (AUTO) 0.4 % (0-5); MONOCYTES % (AUTO) 8.5 % (4-12); Mean Corpuscular Hemoglobin 32.1 pg (27.0-35.0); NEUTROPHILS % (AUTO) 60.6 % (40-74); Platelet Count 162 bil/L (150-400)
[2017-05-05 13:26] LABS: TROPONIN T 0.795 ug/L (0.0-0.011)
[2017-05-05] MEDS ORDERED: Heparin 25K Unit/500mL 0.45 NS 25,000 UNIT in IV Premix 1 EACH IV SCH ×2 (13:30→14:15)
[2017-05-05] MEDS ORDERED: Heparin 5,000 Unit/mL Inj IVPUSH PRN ×2 (13:30→14:15)
[2017-05-05] MEDS ORDERED: HYDROcodone-APAP 5-325 mg Tablet PO ONE (13:35)
--- NOTE | 2017-05-05 14:08 | DRSVH ---
PROCEDURE: X-RAY CHEST ONE VIEW, PORTABLE ([id number]) INDICATIONS: 41 year-old male with chest pain. TECHNIQUE: One view of the chest was acquired. COMPARISON: None. FINDINGS: Surgical changes and devices: None. Lungs and pleura: No pleural effusions or pneumothorax. Lungs are clear. Mediastinum: Mediastinal contours appear normal. Heart size is normal. Bones and chest wall: No suspicious bony lesions. Overlying soft tissues appear unremarkable. IMPRESSION: No acute cardiopulmonary disease. Dictated by: Harris Westfall M.D. on 05/05/2017 at 14:06 Approved by: Harris Westfall M.D. on 05/05/2017 at 14:07
[2017-05-05] MEDS ORDERED: Atropine 1 mg/10 mL (Code) Syringe IVPUSH PRN (14:15)
[2017-05-05] MEDS ORDERED: Ondansetron 2 mg/mL 2 mL Inj IVPUSH PRN (14:15)
[2017-05-05] MEDS ORDERED: Alum-Mag Hydrox-Simeth 30 mL Suspension PO PRN (14:15)
[2017-05-05] MEDS ORDERED: Polyethylene Glycol (PEG) 17 Gm Powder PO PRN (14:15)
[2017-05-05] MEDS ORDERED: 0.9% Sodium Chloride 1,000 ML IV SCH (14:15)
[2017-05-05] MEDS ORDERED: Senna-Docusate 8.6-50 mg Tablet PO PRN (14:15)
[2017-05-05] MEDS ORDERED: Glucose 40% Oral Gel 15 Gm Tube PO PRN (14:15)
[2017-05-05] MEDS: 0.9% Sodium Chloride 1,000 ML IV SCH ×2 (14:30→15:10)
[2017-05-05] MEDS ORDERED: 0.9% Sodium Chloride 1,000 ML IV ONE ×2 (15:00→15:45)
[2017-05-05 15:42] LABS: Creatine Kinase 143 U/L (21-232)
[2017-05-05 15:58] LABS: TROPONIN T 0.795 ug/L (0.0-0.011)
[2017-05-05] MEDS ORDERED: Sodium Chloride LOK Flush 10 mL Syringe IVFLUSH SCH (16:30)
--- NOTE | 2017-05-05 16:37 | NUR ---
Social Work-initial assessment: Data:See initial assessment. Pt is a 41 y/o male who was admitted on 05/05/17 for NStemi per H&P. Pt's insurance is [employer] and PCP is Jose in [place]. EMR reviewed. SW met with pt at bedside, SW role explained. Pt is a readmission just discharging home no needs. Pt is alert and oriented x3. Pt resides at home with his roommate in 2nd floor apartment. Pt uses either a cane or electric w/c at baseline and does not drive. Pt has no HH or SNF history. 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 Pt states he goes to [facility] in [place] 2 times a month for counseling and sees a psychiatrist. Pt has not completed DPOA/ advanced directive and is declining any information. Pt states that he will likely need medicaid taxi home, SW confirmed pt did arrive via EMS. SW provided pt with discharge planning checklist and encouraged pt to call with any questions, phone number has been provided on white board in room. No anticipated discharge needs. SW will continue to follow if needs arise. Assessment:P who is independent at baseline. Plan:Pt to discharge home when medically stable. Pt will likely need Medicaid taxi at discharge. No anticipated discharge needs. SW will continue to follow if needs arise. JACEK Cheng Addendum: 05/05/17 at 1638 by YOHAN PATRICK SS Amended: Links added.
--- NOTE | 2017-05-05 16:40 | PCM.HPMED ---
Subjective Date of Service May 05, 2017 Primary Provider: Admitting Physician: Reed Martinez MD [facility]ending Physician: Reed Martinez MD Admit Status: From the Emergency Department, Admit to Yellow Team Chief Complaint: 41-year-old with hypertrophic cardiomyopathy presents with chest pain and elevated troponin History of Present Illness: He was in his usual state of health until approximately 9 AM on the day of admission. He experienced episode of chest pressure which started at rest. The discomfort was continuous. He endorses some radiation to his jaw and increased intensity versus his usual episodes. The patient has a history of severe concentric hypertrophic cardiomyopathy. He initiated high-dose beta valentino in 02/2017. Reports being fully compliant with his medications. This does not appear to be obstructive cardiomyopathy. In the [facility] system, he was last catheterized in 2013, although he reports PCI at [facility] more recently. The patient reports a history of myocardial infarction several years ago admitted to [facility] in [place] where he is followed by Dr. Sami Chen. Since this event he has had approximately 8 subsequent hospital evaluations at [facility] for acute chest pain. He reports being told that each of these was not heart related. He has not had repeat cardiac catheterization since his myocardial infarction. He was last evaluated for chest pain 2 days ago. He does not have exertional chest pain, although he usually ambulates with a wheelchair due to his cataplexy disorder. He has no PND, orthopnea or increased ankle swelling. He uses a CPAP device for ORLANDO regularly. Review of Systems: 11 systems were reviewed with no additional findings except as noted in history of present illness. Allergies Coded Allergies: tramadol (Verified Allergy, Intermediate, 05/05/17) Squash (Verified Allergy, Unknown, Anaphylaxis, 05/05/17) cyclobenzaprine HCl (Verified Allergy, Unknown, 05/05/17) NSAIDS (Non-Steroidal Anti-Inflamma (Verified Adverse Reaction, Intermediate, GERD, 05/05/17) amitriptyline (Verified Adverse Reaction, Intermediate, "DRUNKEN FEELING" , 05/05/17) codeine (Verified Adverse Reaction, Intermediate, DIFFICULTY SWALLOWING, ) telmisartan (Verified Adverse Reaction, Intermediate, "DRUNKEN FEELING", ) Uncoded Allergies: GHOST PEPPER (Allergy, Severe, Anaphylaxis, 04/19/17) ZUCCHINI (Allergy, Severe, ANAPHYLAXIS, 04/19/17) Home Medications Based on emergency department medication reconciliation: Albuterol Alprazolam 1 mg daily Oxycodone 10 mg, 15 tablets per month used when necessary Amlodipine 10 mg daily Atorvastatin 40 mg daily Valproic acid 250 milligrams twice a day Duloxetine 60 mg twice a day Ferrous gluconate 324 mg daily Losartan 25 mg daily Meclizine 25 mg 3 times a day when necessary Metoprolol 50 mg ER daily Omeprazole 40 mg twice a day Oxycodone 10/325 Prazosin 2 mg by mouth daily, 4 mg by mouth daily at bedtime Pregabalin 300 mg twice a day Rizitriptan ODT 10 mg when necessary Sulfasalazine 50 mg twice a day Tizanidine 8 mg 3 times a day PMH # Hypertrophic cardiomyopathy, concentric apical not obstructive # Myocardial infarction 2014 # Episodic chest pain with normal EKG and troponins # Right sided congestive heart failure # ORLANDO on CPAP # DJD and ankylosing spondylitis # Cataplexy # Restless leg syndrome # Asthma # Hypertension # Crohn's disease # Bipolar, anxiety Family History Father with premature coronary disease. Mother with hypertension. One half- sister in good health. No other siblings. 3 children one with type II diabetes mellitus. Social History Occupation: disability Hx Alcohol Use: Yes ("very rarely") Hx Substance Use: No Hx Tobacco Use: Yes Smoking Status: Current Every Day Smoker Living Arrangement: with Friends/Roommate (roommate non-spouse; mother is out of state but involved) Exam Vital Signs Vital Sign - Last Date Time Temp Pulse Resp B/P Pulse Ox O2 Delivery O2 Flow Rate FiO2 05/05/17 16:07 54 20 115/90 98 Nasal Cannula 2 05/05/17 11:51 36.5 Exam General: Obese man slightly dysphoric, no acute distress HEENT: sclerae anicteric, oral mucosa moist Neck: no JVD, supple Chest: clear to auscultation; no palpable chest tenderness Cardiac: S1S2, no audible murmur, regular Abdomen: BS normal, non-tender Extremities: No pitting edema Neuro: A&O, cranial nerves symmetric, motor strength 5/5, coordination normal Lab and Diagnostics Labs Troponin T 0.795 (normal less than 0.01) CK-MB 5.5 (normal Total CK 143 (normal Result Diagram: 05/05/17 1225 05/05/17 1225 12-lead ECG Sinus rhythm, rate 57, T-wave inversions V2-V6, I, II - no significant change Assessment & Plan 41-year-old man with a history of both cardiac and noncardiac chest pain present with recurrent chest pain and elevated troponin # NSTEMI, acute, present on admission. - Monitor serial troponin - Cardiac heparin - Aspirin - High-dose atorvastatin - Continue metoprolol - Cardiology consult regarding early intervention # Hypertension, acute, present on admission - Aggressive fluid hydration - Hold on further nitrates and morphine until stable with systolic blood pressure - Vasopressors only as needed if fluid resuscitation precipitates pulmonary congestion # Hypertrophic cardiomyopathy, nonobstructive, chronic. High risk for acute diastolic congestive heart failure. - Continue metoprolol # Type II diabetes mellitus, chronic - 4 times a day capillary blood glucose - Glucose control goals: Random less than 180, fasting less than 140, none less than 70 - Insulin as needed, divided 50-50 long-acting and nutritional/correctional # Hypertension, chronic, acute management indicated. - Holding chronic antihypertensives due to presumed ischemic hypotension. # Headache, chronic migraines, present on admission. - Oxycodone - Hold on trip tans at this time # Tobacco abuse, chronic. - Nicotine patch Resolving, stable and/or chronic problems: # Depression and PTSD - Continue outpatient neuropsych medications as tolerated # Crohn disease - Continue sulfasalazine VTE Prophylaxis: Other Resuscitation Status: CPR: Attempt Resuscitation Time spent 75 minutes in patient assessment in care coordination including review of data with emergency department physician and consultants. We are currently awaiting availability of a CCU bed to determine inpatient status. Reed Martinez MD May 05, 2017 16:40
[2017-05-05] MEDS ORDERED: Insulin LISPRO 300 Unit/3 mL Inj SUBQ SCH (17:30)
[2017-05-05] MEDS ORDERED: Insulin GLARgine 100 Unit/mL Syringe SUBQ SCH (21:00)
== END 2017-05-05 20:29 | disposition short-term general hospital (02) ==
LOC: SED 11:47 → UNDOADMIN 14:37 → MPC 14:37 → SED 20:29
DX: I21.4 Non-ST elevation (NSTEMI) myocardial infarction (principal); I95.9 Hypotension, unspecified; I42.2 Other hypertrophic cardiomyopathy; R06.02 Shortness of breath; I10 Essential (primary) hypertension; F43.10 Post-traumatic stress disorder, unspecified; I25.2 Old myocardial infarction; J45.909 Unspecified asthma, uncomplicated; E78.5 Hyperlipidemia, unspecified; I42.9 Cardiomyopathy, unspecified; F41.9 Anxiety disorder, unspecified; I50.9 Heart failure, unspecified; Z90.89 Acquired absence of other organs; Z79.51 Long term (current) use of inhaled steroids; Z88.5 Allergy status to narcotic agent; Z88.6 Allergy status to analgesic agent; Z88.8 Allergy status to other drugs, medicaments and biological substances
CPT/HCPCS: 36415; 71010; 80053; 82550; 82553; 83036; 83735; 84443; 84484; 85025; 85730; 93005; 96361; 96374; 96375; 96376; 99291; 99292; J1644; J2270; J7030

== ENCOUNTER 2017-05-19 13:01 | Emergency (ER) | payer OTHER ==
[~2017-05-19] VITALS: Ht 172.7 cm; Wt 140.0 kg
[2017-05-19 13:03] VITALS: BP 115/53; PULSE 63; RESP 15; O2SAT 96
--- NOTE | 2017-05-19 13:14 | ED.REPORT ---
HPI-Chest Pain 40 and Over Date of Service May 19, 2017 ED Provider: Jayce Newton DO Patient is a 41 year old male with an extensive cardiac history including DC, hypertension, concentric hypertrophic cardiomyopathy, CHF with recent admission on 05/05/17 for a NSTEMI (with a normal cath) on Plavix who presents to the ED via EMS complaining of chest pain onset 0800 this morning while at rest. Associated symptoms include pain that radiates into his jaw and shoulder and headache. He denies shortness of breath, diaphoresis or nausea. The patient denies pain with deep inhalation. Prior to arrival, patient took his Plavix, nitro and daily ASA. Nursing Notes Stated Complaint: CHEST PAIN Chief Complaint: Chest Pain Nursing Notes Reviewed: Yes Allergies: Coded Allergies: tramadol (Verified Allergy, Intermediate, 05/19/17) Squash (Verified Allergy, Unknown, Anaphylaxis, 05/19/17) cyclobenzaprine HCl (Verified Allergy, Unknown, 05/19/17) NSAIDS (Non-Steroidal Anti-Inflamma (Verified Adverse Reaction, Intermediate, GERD, 05/19/17) amitriptyline (Verified Adverse Reaction, Intermediate, "DRUNKEN FEELING" , 05/19/17) codeine (Verified Adverse Reaction, Intermediate, DIFFICULTY SWALLOWING, ) telmisartan (Verified Adverse Reaction, Intermediate, "DRUNKEN FEELING", ) Uncoded Allergies: GHOST PEPPER (Allergy, Severe, Anaphylaxis, 04/19/17) ZUCCHINI (Allergy, Severe, ANAPHYLAXIS, 04/19/17) Scheduled Amlodipine (Amlodipine) 5 Mg Tablet 10 MG PO DAILY Atorvastatin Calcium (Atorvastatin Calcium) 40 Mg Tablet 40 MG PO HS Divalproex (Divalproex) 250 Mg Tablet.dr 250 MG PO BID Duloxetine (Duloxetine) 60 Mg Capsule.dr 60 MG PO BID Ferrous Gluconate (Ferrous Gluconate) 324 Mg Tab 324 MG PO QAM Losartan Potassium (Losartan Potassium) 25 Mg Tablet 25 MG PO QAM Metoprolol Succinate ER (Metoprolol Succinate ER) 50 Mg Tab.er.24h 50 MG PO QAM Aynor-3/Dha/Epa/Fish Oil (Fish Oil 1,000 mg Softgel) 1 Each Capsule 1 EACH PO QAM Omeprazole (Omeprazole) 40 Mg Capsule.dr 40 MG PO BIDAC Prazosin (Prazosin) 2 Mg Capsule 2 MG PO QAM PRAZOSIN 2 MG IN AM AND 4 MG AT HS Prazosin (Prazosin) 2 Mg Capsule 4 MG PO HS PRAZOSIN 2 MG IN AM AND 4 MG AT HS Pregabalin (Lyrica) 300 Mg Capsule 300 MG PO BID Sulfasalazine (Sulfasalazine) 500 Mg Tablet 1,500 MG PO BIDWM Tizanidine (Tizanidine) 4 Mg Tablet 8 MG PO TID Scheduled PRN Albuterol Sulfate (Ventolin HFA Inhaler) 200 Puff/18 Gm Inhaler 2 PUFFS INHALATION Q4H PRN PRN For Shortness of Breath Alprazolam (Alprazolam) 1 Mg Tablet 1 MG PO DAILY PRN PRN For Anxiety Alprazolam (Alprazolam) 1 Mg Tablet 1-2 MG PO HS PRN PRN Insomnia Epinephrine (Epipen 2-Jonah) 0.3 Mg/0.3 Ml Auto.injct 0.3 MG IM ASDIRECTED PRN PRN For Anaphyllaxis Lidocaine HCl (Lidocaine) 142 Appl/37.5 Gm Oint 1 APPLIC TOPICAL PRN Neuropathy TO LEFT THIGH, NECK, AND/OR LOWER BACK Loperamide (Loperamide) 2 Mg Capsule 2 MG PO Q6H PRN PRN For Diarrhea or Loose Stool Meclizine (Bonine) 25 Mg Tab.chew 25 MG PO Q8H PRN PRN For Dizziness Ondansetron (Ondansetron) 4 Mg Tablet 4-8 MG PO Q8H PRN PRN For Nausea Promethazine (Promethazine) 25 Mg Tablet 50 MG PO TID PRN PRN For Nausea Rizatriptan ODT (Rizatriptan) 10 Mg Tab.rapdis 10 MG PO ASDIRECTED PRN PRN For Headache TAKE 1 TABLET AT ONSET OF HEADACHE. MAY REPEAT IN 2 HRS IF NEEDED. 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 PTSD. DC Pulmonary artery disease Possible dissociative disorder. Suspected bipolar disorder. Malignant and borderline personality disorder. Suspected possible Crohn's disease. Migraine Self-reported history of fibromyalgia diverticulitis GI bleed Kidney stones arthritis seizures anemia Reports: Asthma, Congestive heart failure, Hyperlipidemia, Hypertension, Mental illness Reports: Morbid Obesity Past Surgical History exploratory surgery s/p pancreatitis Status post steroid injection for back pain Status post negative cardiac catheterization December 11, 2013. cardiac stents Reports: Appendectomy Family History DC (father and aunt) before 50 father-premature coronary disease mother-hypertension Reports: Diabetes mellitus Smoking History Current Every Day Smoker Social History Previous Suicide attempt Alcohol Use: "Social" Other Social History: Local resident Ambulatory Status Independent Review of Systems Respiratory: Denies: Non-productive cough, Shortness of breath Cardiovascular: Reports: Chest pain GI: Denies: Nausea Skin: Denies Diaphoresis Neurologic: Reports: Headache Complete sys rev & neg: except as marked. Physical Exam Initial Vital Signs Vital Signs (First) Date Time Temp Pulse Resp B/P Pulse Ox O2 Delivery O2 Flow Rate FiO2 05/19/17 13:03 36.8 63 15 115/53 96 05/19/17 17:00 Room Air Initial VS: Reviewed General/Constitutional: Awake, Alert, No acute distress Appearance / Presentation: Positive: Obese, morbidly Respiratory / Chest: Atraumatic, Breath sounds NL, Breath sounds = bilat, No respiratory distress Cardiovascular: Heart rate NL, Regular rhythm, Heart sounds NL, No murmurs Abdomen: Atraumatic, Soft, Non-tender Lower Extremity / Pelvis / MS: Atraumatic trace bilateral edema Skin: Atraumatic, Color NL, No rash, Warm, Dry Head / Eyes: Atraumatic, Normocephalic Interpretation & Diagnostics Lab Results Interpretation Result Diagram: 05/19/17 1315 05/19/17 1315 Test 05/19/17 13:15 White Blood Count 4.6th/mm3 (3.8-10.1) Red Blood Count 3.53mil/mm3 (4.40-5.80) Hemoglobin 11.5g/dL (13.8-17.2) Hematocrit 34.2% (41.0-50.0) Mean Corpuscular Volume 96.9fL (81-100) Mean Corpuscular Hemoglobin 32.6pg (27.0-35.0) Mean Corpuscular Hemoglobin Concent 33.6% (32.0-37.0) Red Cell Distribution Width 15.0% (12.3-15.4) Platelet Count 171bil/L (150-400) Neutrophils (%) (Auto) 54.2% (40-74) Lymphocytes (%) (Auto) 37.9% (14-46) Monocytes (%) (Auto) 6.3% (4-12) Eosinophils (%) (Auto) 0.2% (0-5) Basophils (%) (Auto) 0.7% (0-3) Sodium Level 138mEq/L (134-144) Potassium Level 4.4mEq/L (3.5-5.2) Chloride Level 102mEq/L (97-108) Carbon Dioxide Level 24mmol/L (18-29) Blood Urea Nitrogen 14mg/dL (6-24) Creatinine 0.95mg/dL (0.76-1.27) Estimat Glomerular Filtration Rate 92mL/min (>59) Glucose Level 72mg/dL (60-99) Calcium Level 9.0mg/dL (8.5-10.1) Magnesium Level 2.1mg/dL (1.6-2.6) Total Bilirubin 0.2mg/dL (0.0-1.2) Aspartate Amino Transf (AST/SGOT) 9U/L (0-50) Alanine Aminotransferase (ALT/SGPT) 7U/L (0-44) Alkaline Phosphatase 55U/L (25-150) Troponin T < 0.010ug/L (0.0-0.011) Pro-B-Type Natriuretic Peptide 1214pg/mL (0-86) Total Protein 6.6g/dL (6.4-8.4) Albumin 4.4g/dL (3.4-5.0) ECG Interpretation ECG Interpretation: global T wave inversion no ST elevation unchanged from previous Time: 13:06 Interpreted by: ED physician Normal ECG Interpretation: Normal rate (63), Normal sinus rhythm X-Ray Chest Interpretation Chest Xray Interpretation: IMPRESSION: No acute pulmonary process. Dictated by: Maggie Cho M.D. on 05/19/2017 at 13:31 Approved by: Maggie Cho M.D. on 05/19/2017 at 13:33 Interpretation / Wet Read by: Interpret - Radiologist Re-Eval/Medical Decision Med Decision/Clinical Course Obtained and reviewed records from civil laboratory technician at [place]. On 05/06/17 patient had no sign of angiographic obstructive CAD signed by Dr. Bobby Davis [facility] [place] endorsed to Dr. Rodriguez at roughly 2:00 PM. Time of Eval: 13:52 Re-Evaluation/Progress Note: Patient is on chronic 10/325mg Oxycodone and is requesting his normal dose at this time for his headache. Time of Eval: 15:46 Re-Evaluation/Progress Note: Discussed labs, EKG and chest X-ray. Plan for discharge. Patient understands and agrees to plan. All questions were addressed. Counseled Regarding: Diagnosis, Lab results, Need for follow-up, When/why to return to ED Discharge & Departure Primary Impression: Chest pain Chest pain type: unspecified Qualified Code: R07.9 - Chest pain, unspecified Disposition: Home Discharge Condition All VS Reviewed: Yes Condition: Stable Patient Instructions: Chest Pain (ED) Additional Instructions: Your EKG, chest X-ray and labs were all normal and reassuring. There was no evidence of a heart attack today or acutely dangerous cause for your symptoms today. Follow up with your primary care physician next week. Return to the emergency department if you develop any new or concerning symptoms. Referrals: [facility] JUNITO CAMPBELL (PCP) Gustavo Attestation Portions of this note were transcribed by Meera Day. I, Dr. Newton personally performed the history, physical exam and medical decision-making; I reviewed and confirmed the accuracy of the information in the transcribed note. Signed by: Gustavo Solorzano, 05/19/17 copies to: [facility] JUNITO CAMPBELL Todd P DO May 19, 2017 13:14 Radha Day May 19, 2017 13:31
--- NOTE | 2017-05-19 13:35 | DRSVH ---
PROCEDURE: X-RAY CHEST ONE VIEW, PORTABLE ([id number]) INDICATIONS: chest pain TECHNIQUE: One view of the chest was acquired. COMPARISON: [facility], CR, XR CHEST 1VW (PORTABLE), 05/05/2017, 13:41. FINDINGS: Surgical changes and devices: None. Lungs and pleura: No pleural effusions or pneumothorax. Lungs are clear. Mediastinum: Mediastinal contours appear normal. Heart size is normal. Bones and chest wall: No suspicious bony lesions. Overlying soft tissues appear unremarkable. IMPRESSION: No acute pulmonary process. Dictated by: Maggie Cho M.D. on 05/19/2017 at 13:31 Approved by: Maggie Cho M.D. on 05/19/2017 at 13:33
[2017-05-19 13:45] LABS: BASOPHILS % (AUTO) 0.7 % (0-3); EOSINOPHILS % (AUTO) 0.2 % (0-5); MONOCYTES % (AUTO) 6.3 % (4-12); Mean Corpuscular Hemoglobin 32.6 pg (27.0-35.0); Mean Corpuscular Volume 96.9 fL (81-100); NEUTROPHILS % (AUTO) 54.2 % (40-74); Platelet Count 171 bil/L (150-400)
[2017-05-19] MEDS ORDERED: oxyCODONE-Acetamin 10-325 mg Tablet PO ONE (13:55)
[2017-05-19 14:09] LABS: TROPONIN T < 0.010 ug/L (0.0-0.011)
[2017-05-19 14:17] LABS: Magnesium 2.1 mg/dL (1.6-2.6)
[2017-05-19] MEDS ORDERED: 0.9% Sodium Chloride 1,000 ML IV ONE (15:57)
[2017-05-19] MEDS ORDERED: TRAZ-118 PO (16:00)
[2017-05-19] MEDS ORDERED: MetoCLOpramide 5 mg/mL 2 mL Inj IVPUSH ONE (16:00)
[2017-05-19] MEDS ORDERED: Dexamethasone 10 mg/mL Inj IVPUSH ONE (16:00)
--- NOTE | 2017-05-19 16:07 | PCM.EDPN ---
ED Note Date of Service May 19, 2017 I assumed care of this patient from Dr. Newton at approximately 2 PM. I have reviewed documentation detail and interviewed the patient myself. Reviewing the diagnostic and laboratory data I believe that acute coronary ischemia is exceedingly unlikely given the fact that the pain had been present for 5 hours prior to drawing his blood which reveals a troponin value of less than 0.01. This gentleman complains bitterly of a headache which he says he gets chronically as well. He also requests a refill of his alprazolam. On April 23 I can see that he had 90 tablets prescribed and an additional 5 tablets prescribed on May 05. This data was obtained from the online prescription monitoring program. I told him that I was unwilling to prescribe this medication and he requested a different medication for sleep which I was happy to oblige by giving him trazodone. He asked for parenteral narcotics to help control his current chest pain and headache which I declined to do. I told him I would administer typical headache cocktail medications which are administered. Assessment: Chest pain and headache. I do not believe that the chest pain represents acute coronary ischemia or any other immediately dangerous cause at this time. Plan: Discharged home with resumption of usual outpatient therapy Jonathon Rodriguez MD May 19, 2017 16:07
[2017-05-19 17:00] VITALS: BP 152/82; PULSE 78; RESP 18; O2SAT 97
[2017-05-19 17:56] VITALS: BP 152/82; PULSE 78; RESP 18; O2SAT 97
== END 2017-05-19 17:50 | disposition home or self-care (01) ==
LOC: SED 13:01
DX: R07.9 Chest pain, unspecified (principal); R51 Headache; I11.0 Hypertensive heart disease with heart failure; I50.9 Heart failure, unspecified; E78.5 Hyperlipidemia, unspecified; I25.2 Old myocardial infarction; F43.10 Post-traumatic stress disorder, unspecified; F17.200 Nicotine dependence, unspecified, uncomplicated; Z88.5 Allergy status to narcotic agent; Z88.8 Allergy status to other drugs, medicaments and biological substances
CPT/HCPCS: 36415; 71010; 80053; 82948; 83735; 83880; 84484; 85025; 93005; 96361; 96374; 96375; 99285; J1100; J1200; J2765; J7030